=== PATIENT | female | born 1935 | race Caucasian/White ===

== ENCOUNTER 2021-02-17 16:15 | Outpatient (NON) | payer OTHER, SELFPAY | END 2021-02-17 16:16 | disposition home or self-care (01) | LOC: ANHLAB 16:17 | PROVIDERS: PCP Family Medicine; Visit Provider Nurse Practitioner | DX: R19.7 Diarrhea, unspecified (principal) | CPT/HCPCS: 87045; 87324; 87427 ==

== ENCOUNTER 2021-03-09 08:08 | Emergency (ER) | payer MEDICARE, MEDICAID, SELFPAY ==
[2021-03-09 08:09] VITALS: BP 184/91; PULSE 76; RESP 16; TEMP 36.8; O2SAT 100
--- NOTE | 2021-03-09 09:28 | ED.NAVMDI ---
HPI - Nausea/Vomiting/Diarrhea General Chief complaint: Nausea/Vomiting/Diarrhea Stated complaint: Diarrhea Time Seen by Provider: 03/09/21 09:10 Source: patient History of Present Illness HPI Narrative: Patient presents with diarrhea. Reports has had diarrhea for approximately 14 days. She was started on Flagyl by her primary care doctor for C. difficile she completed her course and continues to have diarrhea. She reports she has had one episode of diarrhea 2 days ago no diarrhea yesterday and one episode of diarrhea this morning. She denies any blood or melena. She denies any fevers nausea or vomiting. She denies any abdominal pain. She is scheduled see her primary care doctor in 5 days for reevaluation. The nursing facility was concerned as she continued to have diarrhea so she was referred to the ER for a second opinion. Related Data Home Medications Medication Instructions Recorded Confirmed levothyroxine 88 mcg tablet 88 mcg PO DAILY 11/22/20 12/13/20 potassium chloride 20 mEq 20 meq PO DAILY 11/22/20 12/13/20 tablet,extended release acetaminophen 325 mg capsule 325 mg PO Q6H PRN 12/13/20 12/13/20 carvedilol 6.25 mg tablet 6.25 mg PO Q12H 12/13/20 12/13/20 Allergies Allergy/AdvReac Type Severity Reaction Status Date / Time No Known Allergies Allergy Verified 03/09/21 08:29 Review of Systems Review of Systems: CONSTITUTIONAL: Denies fever, chills, or sweats. EYES: Denies visual changes, redness, or discharge. ENT: Denies rhinorrhea, congestion, sore throat, or otalgia. CARDIOVASCULAR: Denies chest pain, palpitations, or edema. RESPIRATORY: Denies cough or dyspnea. GASTROINTESTINAL: Denies abdominal pain, nausea, vomiting GENITOURINARY: Denies dysuria or hematuria. SKIN: Denies rash or itching. MUSCULOSKELETAL: Denies back pain, joint pain, or myalgia. NEUROLOGIC: Denies headache, numbness, dizziness, or weakness. PSYCHIATRIC: Denies anxiety or depression. All systems reviewed & are unremarkable except as noted in HPI and below PMFSH Past Medical History Medical History Acquired hypothyroidism Anxiety Diverticulosis HTN (hypertension) Family History Family History Father Heart disease Mother Diabetes mellitus Sibling Diabetes mellitus Social History Social History Smoking status: Never smoker Second hand tobacco smoke exposure: No Alcohol intake: never Substance use: never Substance use type: does not use Gender identity (if verbalized by the patient): Female Sexual Orientation (if Verbalized by the Patient): Straight or Heterosexual Exam Narrative: GENERAL: Well-appearing, well-nourished, and in no acute distress. HEAD: Normocephalic, atraumatic. EYES: PERRLA and EOMI. ENT: Nares clear, no rhinorrhea or epistaxis. Mucous membranes moist. NECK: Supple. No masses. No JVD ABDOMEN: Soft, nontender, nondistended, normal active bowel sounds. EXTREMITIES: Normal range of motion. No edema. SKIN: Warm, dry, no rash. NEURO: No focal deficits. Alert and oriented x3. PSYCH: Normal mood and affect. Course Vital Signs Vital signs: Vital Signs Temperature 36.8 C 03/09/21 08:09 Pulse Rate 76 03/09/21 08:09 Respiratory Rate 16 03/09/21 08:09 Blood Pressure 184/91 H 03/09/21 08:09 Pulse Oximetry 100 03/09/21 08:09 Temperature 36.8 C 03/09/21 08:09 Pulse Rate 76 03/09/21 08:09 Respiratory Rate 16 03/09/21 08:09 Blood Pressure 184/91 H 03/09/21 08:09 Pulse Oximetry 100 03/09/21 08:09 MDM - Nausea/Vomiting/Diarrhea MDM Narrative Medical decision making narrative: H&P as above, vss, pt looks clinically well, exam with nonacute abdomen, labs/img considered, symptomatic relief available as needed, on reevaluation pt continues to looks clinically well. Diarrhea appears to be infrequent
--- NOTE | 2021-03-09 09:45 | PC.NURSE ---
SPOKE WITH ATA MAYO AT [facility]# [phone] FOR MORE INFORMATION REGARDING PT AND SITUATION. SHE INDICATES THAT THE PT HAS BEEN POOPING IN CONTAINERS AND STORING THEM IN HER REFRIGERATOR. THE PT HAS BEEN QUARANTINED FOR THE PAST 2WKS TAKING ANTIBIOTICS. TODAY PT HAD ANOTHER EPISODE OF LOOSE STOOL. SHE CALLED DR VAUGHAN ASKING ABOUT ANOTHER STOOL CULTURE AND OR CONTINUATION OF ANTIBIOTICS AND DR VAUGHAN INDICATED NO NEW ORDERS FOR THE PT. THE NURSE SENT THE PT INTO ED FOR ADDITIONAL EVALUATION. SHE IS REQUESTING ANOTHER STOOL CULTURE. DR MCDANIEL HAS INDICATED THAT ANOTHER CULTURE ISN'T NECESSARY AT THIS TIME. WILL CALL FAMILY TO ATTEMPT TO CLARIFY SITUATION
--- NOTE | 2021-03-09 10:05 | PC.NURSE ---
SPOKE WITH JADE PT'S DAUGHTER IN LAW REGARDING SITUATION. SHE STATES THAT [facility] HAS KEPT HER IN QUARANTINE FOR THE PAST 2WEEKS WHILE TAKING THE ANTIBIOTICS FOR C-DIFF. THEY ARE NOT WANTING TO TRANSPORT HER TO MEDICAL APPOINTMENTS DUE THE THE INFECTION. JADE REPORTS THEY TOLD THE FAMILY THAT C-DIFF IS HIGHLY CONTAGIOUS AND SHE ISN'T ALLOWED TO HAVE ANY VISITORS. SHE SAID THAT [facility] REALLY HASN'T INTERACTED WITH THE PT SINCE THE DIAGNOSIS SO THE PT IS LONELY. SHE IS REQUESTING THAT WE GET A STOOL SAMPLE SO THAT [facility] WILL TAKE HER OFF OF QUARANTINE. I LET HER KNOW THAT A GRADING SUPERVISOR WILL BE CALLING HER BACK [place] TO ASSIST HER WITH THE SITUATION.
--- NOTE | 2021-03-09 10:30 | PC.NURSE ---
SPOKE WITH [employer]ICOL SOIL BIOLOGY TEACHER WHO WAS INFORMED OF THE ISSUES AND IS GOING TO HELP RECTIFY THE SITUATION
--- NOTE | 2021-03-09 12:15 | PC.NURSE ---
[employer] CALLED TO SEND TAXI OUT FOR THE PT. MAICOL FROM [employer] PROVIDED A VOUCHER FOR PT TO RIDE.
--- NOTE | 2021-03-09 12:15 | PCCCNOTE ---
Spoke with daughter in [place] and patient. Feel pt is to isolated at [facility] d/t quarantine for C-Diff. Pt has been treated. I got ED doctor to order new c-diff test. Pt unable to have stool sample here so sent back with supplies and script for C-Diff test. Cab voucher provided.
== END 2021-03-09 12:15 ==
PROVIDERS: Emergency Provider Emergency Medicine; PCP Internal Medicine
DX: R19.7 Diarrhea, unspecified (principal); E03.9 Hypothyroidism, unspecified; I10 Essential (primary) hypertension
CPT/HCPCS: 99283

== ENCOUNTER 2021-03-11 11:26 | Outpatient (NON) | payer MEDICARE, MEDICAID, SELFPAY | END 2021-03-11 11:27 | disposition home or self-care (01) | LOC: ANHLAB 11:42 | PROVIDERS: PCP Internal Medicine; Visit Provider Emergency Medicine | DX: R19.7 Diarrhea, unspecified (principal) | CPT/HCPCS: 87324; 87493 ==

== ENCOUNTER 2021-04-04 11:31 | Outpatient (NON) | payer MEDICARE, MEDICAID, SELFPAY | END 2021-04-04 11:32 | disposition home or self-care (01) | LOC: ANHLAB 11:32 | PROVIDERS: PCP Internal Medicine; Visit Provider Internal Medicine | DX: R19.7 Diarrhea, unspecified (principal) | CPT/HCPCS: 87324 ==

== ENCOUNTER 2021-04-07 11:02 | Emergency (ER) | payer MEDICARE, MEDICAID, SELFPAY ==
[2021-04-07 11:11] VITALS: BP 185/92; PULSE 94; RESP 18; TEMP 36.9; O2SAT 99
[2021-04-07 13:06] LABS: Ethanol < 10 mg/dL (<10)
[2021-04-07 13:08] LABS: Add Urine Microscopic? NO; Appearance Urine Clear (Clear); Bilirubin Urine Negative (Negative); Blood Urine Negative (Negative); Color Urine Straw (Yellow); Glucose Urine UA Negative (Negative); Ketones Urine Negative (Negative); Leukocyte Esterase Ur Negative LEU/UL (Negative); Nitrate Urine Negative (Negative); Protein Urine Negative (Negative); Specific Grav Ur 1.006 (1.001-1.035); Urobilinogen Urine Negative mg/dL (<2.0)
[2021-04-07 13:10] LABS: Alanine Aminotransferase 33 U/L (4-35); Albumin Level 4.2 g/dL (3.5-5.1); Alkaline Phosphatase 77 U/L (38-126); Anion Gap 8 mmol/L (8-16); Aspartate Amino Transferase 85 U/L (14-36); Bilirubin,Total 0.6 mg/dL (0.2-1.3); Blood Urea Nitrogen 22 mg/dL (7-17); Calcium 8.6 mg/dL (8.4-10.2); Carbon Dioxide 27 mmol/L (22-30); Chloride 107 mmol/L (98-107); Estimated CRCL calculation 36 ml/min; Estimated Glomerular Filt Rate 43; Glucose 103 mg/dL (65-110); Potassium 4.3 mmol/L (3.4-5.0); Sodium 142 mmol/L (137-145)
[2021-04-07 13:24] LABS: Basophils Percent Auto 0.3 % (0.2-1.2); Hematocrit 36.2 % (37.0-47.0); Hemoglobin 11.6 g/dL (12.0-15.0); Immature Granulocyte Absolute 0.01 K/mm3 (0.00-0.031); Immature Granulocyte Percent A 0.3 % (0-0.5); Immature Platelet Fraction Pct 4.7 % (0.9-11.2); Lymphocytes Absolute Auto 1.39 K/mm3 (0.9-3.2); Mean Corpuscular Hemoglobin 35.2 pg (26-34); Mean Corpuscular Volume 109.7 fl (80-100); Mean Platelet Volume 10.4 fl (7.4-10.4); Monocytes Absolute Auto 0.2 K/mm3 (0.1-0.6); Monocytes Percent Auto 5.4 % (2.6-8.5); Neutrophils Absolute Auto 2.2 K/mm3 (1.3-6.7); Platelet Count Result 144 k/mm3 (150-375); Red Cell Distribution Width 13.7 % (11.5-14.5); White Blood Count 3.9 K/mm3 (4.5-10.0)
[2021-04-07 13:27] LABS: Amphetamine Screen Urine Negative (Negative); Barbiturate Screen Urine Negative (Negative); Benzodiazepines Screen Urine Positive (Negative); Cannabinoid Screen Urine Negative (Negative); Cocaine Screen Urine Negative (Negative); Methadone Screen Urine Negative (Negative); Opiate Screen Urine Negative (Negative); Phencyclidine Screen Urine Negative (Negative)
--- NOTE | 2021-04-07 13:29 | PC.NURSE ---
theron turn out worker here to speak with patient
[2021-04-07 13:37] LABS: Thyroid Stimulating Hormone 0.768 uIU/mL (0.465-4.680)
--- NOTE | 2021-04-07 14:47 | ED.GENADULT ---
HPI - General Adult General Chief complaint: Psychiatric Symptoms Stated complaint: SI Time Seen by Provider: 04/07/21 12:18 Source: RN notes reviewed History of Present Illness HPI narrative: Patient presents emergency department from home for concerns of depression. Patient currently lives in assisted living she states that she gotten Covid and then following Covid had gotten C. difficile she states she been treated for C. difficile but has had to be on isolation she states that she had been living at home prior to the Covid but now has been moved to assisted living and does not like living at assisted living. She states that she lost her in August and then her sister just recently this past Saturday as well as the mother of her granddaughter in law states that because of all this she has been feeling more depressed. There is a question at the facility whether she made a comment that she would just 1 [address] out and walked on the [place] and join her in [place] she states that she does not wish to harm herself and has never tried to harm herself before in the past she states she did not make any comments that stated that she wanted to end her life but states that she has been feeling depressed been isolated in her room patient denies any homicidal ideation she denies any recent illness outside of the C. difficile for which she is on antibiotics Related Data Home Medications Medication Instructions Recorded Confirmed levothyroxine 88 mcg tablet 88 mcg PO DAILY 11/22/20 03/14/21 potassium chloride 20 mEq 20 meq PO DAILY 11/22/20 03/14/21 tablet,extended release acetaminophen 325 mg capsule 325 mg PO Q6H PRN 12/13/20 03/14/21 carvedilol 6.25 mg tablet 6.25 mg PO Q12H 12/13/20 03/14/21 Allergies Allergy/AdvReac Type Severity Reaction Status Date / Time No Known Allergies Allergy Verified 04/07/21 11:17 Review of Systems Review of Systems: Gen.: Denies fevers or chills ENT: Denies congestion Respiratory: Denies shortness of breath or cough CV: Denies chest pain or palpitations GI: Denies abdominal pain nausea, emesis or diarrhea reports history of C. difficile denies burning, urgency, frequency or hematuria Musculoskeletal: Denies back pain or muscle pain Neuro: Denies numbness, tingling, weakness or focal weakness Skin: Denies rash Psych: See HPI Except as documented, all other systems reviewed and negative [facility] Past Medical History Medical History Acquired hypothyroidism Anxiety Diverticulosis HTN (hypertension) Family History Family History Father Heart disease Mother Diabetes mellitus Sibling Diabetes mellitus Social History Social History Smoking status: Never smoker Second hand tobacco smoke exposure: No Alcohol intake: never Substance use: never Substance use type: does not use Gender identity (if verbalized by the patient): Female Sexual Orientation (if Verbalized by the Patient): Straight or Heterosexual Exam Narrative: APPEARANCE: No acute distress, nontoxic, resting in bed EYES: EOMI HEENT: Normocephalic, atraumatic, OMM RESPIRATORY: No respiratory distress Clear to auscultation bilaterally with no rhonchi wheezing or rales. CARDIOVASCULAR: Regular rate and rhythm without murmurs rubs or gallops. ABDOMINAL: Soft, nontender, nondistended, no rebound or guarding MUSCULOSKELETAl: Moves all extremities. No clubbing, cyanosis or edema. NEURO: Awake and alert. Following commands, speech normal, no focal deficits SKIN:: Warm, dry. No rashes lesions or abrasions PSYCHIATRIC: Normal affect/mood, denies suicidal ideation denies homicidal ideation Course Course Emergency Course: Patient was evaluated by Rosa M from crisis felt the patient may return home at this time patient continued any suicidal homicida
== END 2021-04-07 17:16 | disposition home or self-care (01) ==
PROVIDERS: Emergency Provider Emergency Medicine; PCP Internal Medicine
DX: F32.A Depression, unspecified (principal); I10 Essential (primary) hypertension; E03.9 Hypothyroidism, unspecified; Z79.899 Other long term (current) drug therapy
CPT/HCPCS: 36415; 80053; 80307; 81003; 84443; 85025; 85055; 99284

== ENCOUNTER 2021-04-25 16:32 | Outpatient (NON) | payer MEDICARE, MEDICAID, SELFPAY | END 2021-04-25 16:33 | disposition home or self-care (01) | LOC: ANHLAB 16:35 | PROVIDERS: PCP Internal Medicine; Visit Provider Internal Medicine | DX: R19.7 Diarrhea, unspecified (principal) | CPT/HCPCS: 87324 ==

== ENCOUNTER 2021-05-11 16:37 | Outpatient (NON) | payer MEDICARE, MEDICAID, SELFPAY | END 2021-05-11 16:38 | disposition home or self-care (01) | LOC: ANHLAB 16:39 | PROVIDERS: PCP Internal Medicine; Visit Provider Nurse Practitioner | DX: R19.7 Diarrhea, unspecified (principal) | CPT/HCPCS: 87324; 87493 ==

== ENCOUNTER 2021-05-15 14:52 | Inpatient (IN) | payer MEDICARE, MEDICAID, SELFPAY ==
[2021-05-15] VITALS (16 sets, daily range): BP systolic 155–226; BP diastolic 66–129; PULSE 70–99; RESP 16–32; TEMP 36.4; O2SAT 78–97
--- NOTE | ~2021-05-15 | CT_ITS ---
EXAMINATION: CTA chest PE abdomen pel DATE: 05/15/2021 22:06 INDICATION: Shortness of breath TECHNIQUE: Computed tomography (CT) pulmonary angiogram of the chest was performed with 100 mL Omnipa que-350 intravenous contrast. Additional 3D reconstructions utilizing coronal maximum intensity proje ction (MIP) were performed. CT of the abdomen and pelvis was performed with intravenous contrast util izing the same contrast bolus following a short delay. Automated exposure control and iterative recon struction technique were employed. The dose-length product was 435.62 mGy-cm. COMPARISON: None FINDINGS: Chest: Excellent contrast opacification of the pulmonary arteries. There is moderate streak artifact from de nse contrast in the superior vena cava and right atrium. Moderate scattered respiratory motion artifa ct. Together this mild to moderately decreases sensitivity in the smaller subsegmental pulmonary vel russ. No pulmonary embolism. Mild emphysema. Small bilateral posterior layering pleural effusions. Di ffuse groundglass opacities throughout both lungs. More dense consolidation in the basilar left lower lobe with bronchovascular crowding suggesting atelectasis. There is a cluster of nodular opacities i n the anterior segment of the left upper lobe, the largest measuring up to 12 mm in maximal diameter which is most likely infectious in etiology although differential would include less likely malignanc y. There are a few 6 mm smaller nodules in the lingula and right middle lobe. There are also few scat tered bilateral small calcified pulmonary nodules consistent with old granulomatous disease. Diffuse bronchial wall thickening which could be due to bronchitis or peribronchial cuffing related to pulmon michael edema. No pneumothorax. Cardiomegaly. In addition there is a moderate-sized pericardial effusion. There is no leftward bowing of the ventricular septum to suggest tamponade physiology. There is refl ux of contrast into the inferior vena cava and hepatic veins consistent with tricuspid regurgitation. Thoracic aorta is normal in caliber. Mild likely reactive mediastinal and bilateral hilar lymphadeno williams. Old healed posterior 9th-11th rib fractures. Abdomen/pelvis: Mild intra and extra hepatic biliary ductal dilation which may be related to cholecystectomy with no visible gallbladder. Spleen, pancreas and bilateral adrenal glands are normal. Bilateral renal cysts, the largest measuring 1.3 cm at the upper pole of the right kidney. There is moderate colonic divert iculosis with a sigmoid predominance. There is no adjacent inflammatory change to suggest diverticul itis. No bowel obstruction. Bladder, atrophic uterus and bilateral adnexa are unremarkable. Very smal l amount of ascites in the cul-de-sac. No free intraperitoneal gas. No pathologically enlarged abdomi nal or pelvic lymphadenopathy. Severe spondylosis at the lumbosacral junction. Otherwise mild thoraco lumbar spondylosis. IMPRESSION: 1. Cardiomegaly with moderate-sized pericardial effusion. 2. Small bilateral pleural effusions. 3. Groundglass opacities throughout both lungs with bronchial wall thickening. Disc represent congest jono heart failure related mild pulmonary edema or bronchitis/pneumonia. 4. Cluster of nodular opacities in the anterior segment of the left upper lobe which could be infecti ous, inflammatory or potentially malignant in etiology. Recommend 6-12 week follow-up low-dose noncon trast chest CT. 5. Mild emphysema. 6. Likely reactive mild mediastinal and bilateral hilar lymphadenopathy. 7. Small amount of nonspecific ascites in the cul-de-sac which could also be related to congestive he art failure. No other acute intra-abdominal/pelvic process. Reviewed, dictated and finalized at location H. MOBILE BUMPER STRAIGHTENER I
--- NOTE | ~2021-05-15 | XR_ITS ---
EXAMINATION: XR chest 1V portable DATE: 05/18/2021 06:22 INDICATION: COVID-19 pneumonia. TECHNIQUE: A single frontal view of the chest was obtained. COMPARISON: Chest CT 05/15/2021, chest single view 05/15/2021 FINDINGS: There are small right and moderate-sized left pleural effusions. Calcified bilateral lung n odules are consistent with old granulomatous disease. There are lucencies in the lungs, consistent wi th emphysema. There is mild scarring at the lung apices. There are airspace opacities at the lung bas es. There are mild airspace opacities in the midlung zones. No pneumothorax. There is enlargement of the cardiac silhouette. IMPRESSION: 1. Stable small right and moderate-sized left pleural effusions. 2. Airspace opacities in the mid and lower lung zones with interval improvement, consistent with a co mbination of atelectasis and pneumonia. 3. Mild emphysema. 4. Enlargement of the cardiac silhouette, likely a combination of cardiomegaly and pericardial effusi on as seen by CT. Reviewed, dictated and finalized at location A. B/PRE VOCATIONAL COUNSELOR IMPRESSION: 1. Stable small right and moderate-sized left pleural effusions. 2. Airspace opacities in the mid and lower lung zones with interval improvement , consistent with a combination of atelectasis and pneumonia. 3. Mild emphysema. 4. Enlargement of the cardiac silhouette, likely a combination of cardiomegaly and pericardial effusion as seen by CT.
--- NOTE | ~2021-05-15 | XR_ITS ---
EXAMINATION: XR chest 1V portable DATE: 05/15/2021 20:17 INDICATION: Shortness of breath TECHNIQUE: frontal view of the chest was obtained. COMPARISON: None FINDINGS: Diffuse increased interstitial pattern throughout both lungs with scattered basilar predominant patch y airspace opacities. Small bilateral pleural effusions, left greater than right. No pneumothorax. Ca rdiomegaly. IMPRESSION: 1. Likely congestive heart failure with cardiomegaly and diffuse bilateral pulmonary edema. 2. Opacities in the bilateral lower lung zones consistent with small bilateral pleural effusions with associated atelectasis and/or pneumonia, left greater than right. Reviewed, dictated and finalized at location H. OLEUM GEOLOGY FACULTY MEMBER IMPRESSION: 1. Likely congestive heart failure with cardiomegaly and diffuse bilateral pulm onary edema. 2. Opacities in the bilateral lower lung zones consistent with small bilateral pleural effusions with associated atelectasis and/or pneumonia, left greater th an right.
--- NOTE | 2021-05-15 17:24 | ED.GENADULT ---
HPI - General Adult General Chief complaint: Unspecified Stated complaint: c-diff Time Seen by Provider: 05/15/21 17:01 Source: patient History of Present Illness HPI narrative: Patient is a 85 y/o female complaining of positive C diff test. She states that she had test for C diff last and found out it was positive today. She has no symptoms at this time. She states that she had diarrhea and C diff in the past and was treated. She has no abdominal, vomiting or diarrhea currently. She states that she was instructed by her PCP to come to ED for evaluation. Related Data Home Medications Medication Instructions Recorded Confirmed levothyroxine 88 mcg tablet 88 mcg PO DAILY 11/22/20 05/16/21 potassium chloride 20 mEq 20 meq PO DAILY 11/22/20 05/16/21 tablet,extended release acetaminophen 325 mg capsule 650 mg PO Q6H PRN 12/13/20 05/16/21 carvedilol 6.25 mg tablet 6.25 mg PO Q12H 12/13/20 05/16/21 furosemide 20 mg PO DAILY 05/16/21 05/16/21 Allergies Allergy/AdvReac Type Severity Reaction Status Date / Time esomeprazole Allergy Rash Verified 05/16/21 09:22 Review of Systems Constitutional: Constitutional: Denies chills, Denies fever(s), Denies headache(s) and Denies weakness Eyes: Eyes: Denies blurry vision ENT: Denies headache(s) and Denies neck pain Cardiovascular: Cardiovascular: Denies chest pain and Denies dyspnea Respiratory: Respiratory: Denies cough and Denies dyspnea Gastrointestinal: Gastrointestinal: Denies abdominal pain, Denies diarrhea, Denies nausea and Denies vomiting Genitourinary: Genitourinary: Denies hematuria and Denies dysuria Musculoskeletal: Musculoskeletal: Denies back pain and Denies neck pain Neurologic: Denies headache(s) and Denies weakness [facility] Past Medical History Medical History (Updated 05/16/21 @ 16:21 by Sophia Steen MD) Acquired hypothyroidism Anxiety C. difficile colitis (~02/2021) Depression Diverticulosis HTN (hypertension) Pneumonia due to COVID-19 virus (~08/2019) Surgical History Surgical History History of appendectomy Hx of cholecystectomy Family History Family History Father Heart disease Mother Diabetes mellitus Sibling Diabetes mellitus Social History Social History Social History: She has been since December of 2019. Her suffered from dementia prior to his . She has 2 sons. She is a lifelong nonsmoker. She does not drink alcohol. 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 Smoking status: Never smoker Second hand tobacco smoke exposure: No Alcohol intake: former Substance use: never Substance use type: does not use Gender identity (if verbalized by the patient): Female Sexual Orientation (if Verbalized by the Patient): Straight or Heterosexual Spiritual care concerns: No Exam Const: General: no acute distress and well developed Orientation/consciousness: oriented to person, oriented to place, oriented to time and patient oriented x3 HENMT: Head: normocephalic Ears: external ears normal General nose exam: Normal external nose present Eyes: General: appearance normal, both eyes and all related structures Conjunctivae: conjunctivae normal Neck: Neck: normal visual inspection and full ROM Chest: Chest palpation & inspection: normal inspection of the chest and no tenderness Resp: Effort & Inspection: normal respiratory effort Auscultation: clear to auscultation bilaterally Cardio: Rate: regular rate Rhythm: regular rhythm GI: GI Palp: No abdominal tenderness and Yes Soft to palpation Skin: General skin exam: normal color and turgor normal Neuro: General: oriented to person, oriented to place, oriented to time and patient oriented x3 Cognition (Neuro): normal cognition Extrem:
[2021-05-15 17:57] LABS: Basophils Percent Auto 0.4 % (0.2-1.2); Hematocrit 31.6 % (37.0-47.0); Hemoglobin 10.1 g/dL (12.0-15.0); Immature Platelet Fraction Pct 4.5 % (0.9-11.2); Lymphocytes Absolute Auto 1.08 K/mm3 (0.9-3.2); Lymphocytes Percent Auto 38.3 % (18.3-44.2); Mean Corpuscular Hemoglobin 37.8 pg (26-34); Mean Corpuscular Volume 118.4 fl (80-100); Mean Platelet Volume 10.6 fl (7.4-10.4); Monocytes Absolute Auto 0.2 K/mm3 (0.1-0.6); Monocytes Percent Auto 6.7 % (2.6-8.5); Neutrophils Absolute Auto 1.5 K/mm3 (1.3-6.7); Neutrophils Percent Auto 54.6 % (45.5-73.1); Platelet Count Result 122 k/mm3 (150-375); Red Blood Count 2.67 M/mm3 (4.2-5.4); White Blood Count 2.8 K/mm3 (4.5-10.0)
--- NOTE | 2021-05-15 18:05 | PC.NURSE ---
pt states she was diagnosed with cdiff on and hasnt had any diarrhea since. states she has been in isolation in her room and is getting tired of it. upset that her kids put her in assisted living and sold her house. pt states that she will need her xanax to calm down and that her family refuses to see her.
[2021-05-15 18:07] LABS: Alanine Aminotransferase 34 U/L (4-35); Albumin Level 3.5 g/dL (3.5-5.1); Alkaline Phosphatase 91 U/L (38-126); Anion Gap 6 mmol/L (8-16); Aspartate Amino Transferase 49 U/L (14-36); Bilirubin,Total 0.5 mg/dL (0.2-1.3); Blood Urea Nitrogen 29 mg/dL (7-17); Carbon Dioxide 25 mmol/L (22-30); Chloride 107 mmol/L (98-107); Estimated CRCL calculation 21 ml/min; Estimated Glomerular Filt Rate 39; Glucose 140 mg/dL (65-110); Potassium 3.8 mmol/L (3.4-5.0); Sodium 138 mmol/L (137-145)
[2021-05-15 19:15] LABS: Add Urine Microscopic? NO; Appearance Urine Clear (Clear); Bilirubin Urine Negative (Negative); Blood Urine Negative (Negative); Color Urine Straw (Yellow); Glucose Urine UA Negative (Negative); Ketones Urine Negative (Negative); Leukocyte Esterase Ur Negative LEU/UL (Negative); Nitrate Urine Negative (Negative); Protein Urine Negative (Negative); Specific Grav Ur 1.006 (1.001-1.035); Urobilinogen Urine Negative mg/dL (<2.0)
[2021-05-15] MEDS: SODIUM CHLORIDE 0.9% IV 1,000 ML 999 ML IV CONT (19:16)
--- NOTE | 2021-05-15 20:07 | PC.NURSE ---
c/o not being able to breath lungs cta bilat
[2021-05-15] MEDS: ALPRAZolam (*CRX) 0.5 MG TABLET PO (20:16)
[2021-05-15] MEDS: FUROSEMIDE INJ 40 MG/4 ML VIAL IV PUSH (20:39)
[2021-05-15] MEDS: lisinopriL 20 MG TABLET PO (20:40)
--- NOTE | 2021-05-15 20:56 | ECG_ITS ---
Measurements Intervals [place] Rate: 91 P: 32 MT: 172 QRS: -32 QRSD: 92 T: 42 QT: 357 QTc: 440 Interpretive Statements SINUS RHYTHM VENTRICULAR PREMATURE COMPLEX LEFT AXIS DEVIATION DELAYED PRECORDIAL R/S TRANSITION BORDERLINE ST-T WAVE ABNORMALITY- LAT/HIGH LAT LEADS BASELINE ARTIFACT- I, III, AVL, AVF, V1-V6 BORDERLINE ECG Electronically Signed On 05-16-2021 5:40:09 CERTIFIED INDOOR ENVIRONMENTALIST by Jim Cast D.O.
[2021-05-15 20:58] LABS: Alveolar/Arterial O2 Gradient 122.2 mmHg; Base Excess ABG -6.9 mEq/l (+/-2.0); Fractional Inspired Oxygen 36 %; HCO3 ABG 19.3 mEq/l (22.0-26.0); Oxygen Content ABG 15.6 %vol (16.0-22.0); Oxygen Saturation ABG 95.5 % (95.0-100.0); Oxyhemoglobin 94.2 % THb (90.0-100.0); PCO2 ABG 41.6 mmHg (35.0-45.0); PO2 ABG 86.2 mmHg (80.0-100.0); PO2 FiO2 Ratio Arterial Blood 2.39 %; Total Hemoglobin 11.7 g/dL (12.0-18.0)
[2021-05-15 21:01] LABS: D Dimer 0.72 ug/mL (<0.48)
[2021-05-15 21:02] LABS: Device NASAL CANNULA; Modified Allen's Test Pass; Site Drawn LEFT RADIAL; pH ABG 7.285 (7.350-7.450)
[2021-05-15 21:06] LABS: NT Pro B Type Natriuretic Pept 12100 pg/mL (5-100)
[2021-05-15 21:09] LABS: Troponin I 0.023 ng/mL (0.000-0.034)
[2021-05-15 21:58] LABS: EDCOVIDSCREEN Positive (Negative)
[2021-05-15] MEDS: DEXAMETHASONE SOD PHOS INJ 4 MG/ML VIAL 6 MG IV PUSH (22:30)
[2021-05-15] MEDS: amLODIPine BESYLATE 5 MG TABLET 10 MG PO (23:33)
[2021-05-15 23:48] LABS: Troponin I 0.152 ng/mL (0.000-0.034)
--- NOTE | 2021-05-15 23:55 | PC.NURSE ---
Called lab and spoke to Katie to add on PT/INR
[2021-05-16] VITALS (12 sets, daily range): BP systolic 117–191; BP diastolic 68–98; PULSE 68–102; RESP 14–24; TEMP 36.1–36.4; O2SAT 95–99
[2021-05-16 00:15] LABS: INR 1.1
[2021-05-16] MEDS: REMDESIVIR 200 MG/NS 250 ML 200 MG/250 ML BAG 250 MG IVPB (01:01)
--- NOTE | 2021-05-16 01:21 | PC.NURSE ---
med list verified by nursing staff at [facility] per lit
--- NOTE | 2021-05-16 01:33 | PM.IMHP ---
H&P: HPI History of Present Illness Date/Time: 05/16/21 01:33 Chief Complaint: C diff positive Narrative: 85-year-old female with a past medical history of hypertension, anxiety, depression, hypothyroidism and recent C diff colitis who presented to the ER from [facility] via EMS days to C diff positive stools. The patient reports that she got C diff colitis back in February. She was treated with Dificid. Her diarrhea resolved. She was also treated with lactobacillus. She reported that she did not have any recurrence of her diarrhea but did have occasional mushy stools. She had 2- C diff tests back to back and then her son was still concerned so he insisted she had a another C diff test which came back positive. She reports that she was called by the doctor who told her to come to the ER for evaluation. The patient denies having any recent diarrheal stools or abdominal pain. However she does report that incidentally over the last couple of weeks she has had orthopnea and paroxysmal nocturnal dyspnea. She has not noticed any significant dyspnea on exertion. She denies any chest pain. She denies any cough, congestion, fevers or chills. She is frequently tested for COVID at her assisted living facility. She did have COVID pneumonia in August 2019 and was discharged to a fdc facility briefly and then transition to assisted living after that time. She did report that while she was in the fdc facility she did develop similar symptoms of shortness of breath that she has currently and when she was hospitalized at [place] she was started on Lasix. She denies a known history of CHF and does not recall having had a an echocardiogram. She reports that at 1 point she was on 2 tablets of Lasix a day but was decreased down to 1 tablet a few months ago. She did not have the COVID vaccine after she had COVID as she was worried to have the [employer] vaccine. She has been considering getting vaccinated for COVID in the last couple of months but had not been ready to do so yet. She reports that neither 1 of her sons will get vaccinated for COVID and her extended family is also refusing to get vaccinated for COVID. She denies any unusual body aches, fatigue, headaches or GI symptoms. She has been afebrile since presentation to hospital. However, shortly after arrival to the ER the patient did develop significant hypoxia with pulse ox down to 78%. She was placed on 4 L nasal cannula with improvement in her oxygen saturations up to 97%. She does have difficulty with occasional urinary incontinence. She denies any dysuria, hematuria or changes in urinary frequency. She reports that she initially lost a lot a weight when she was diagnosed with COVID. However, in recent months her weight has been stable. She reports that she has been depressed since her in December. Review of Systems Review of Systems: 12 systems were reviewed with pertinent positives and negatives per HPI. Except as documented in the HPI, all other systems were reviewed and are negative. [facility] Past Medical History Medical History (Updated 05/16/21 @ 04:42 by Cheyenne Martini DO) Acquired hypothyroidism Anxiety C. difficile colitis (~02/2021) Depression Diverticulosis HTN (hypertension) Pneumonia due to COVID-19 virus (~08/2019) Surgical History Surgical History (Updated 05/16/21 @ 04:28 by Cheyenne Martini DO) History of appendectomy Hx of cholecystectomy Family History Family History Father Heart disease Mother Diabetes mellitus Sibling Diabetes mellitus Social History Social History (Updated 05/16/21 @ 04:32 by Cheyenne Martini DO) Social History: She has been since December of 2019. Her suffered from dementia prior to his . She has 2 sons. She is a lifelong nonsmoker. She does not drink alcohol. She used to work as a caf
[2021-05-16 05:09] LABS: Troponin I 0.205 ng/mL (0.000-0.034)
--- NOTE | 2021-05-16 06:00 | ECHO_ITS ---
Patient Info Name: Fern Grier Age: 85 years : 1935 Gender: Female Ht: 63 in Wt: 105 lbs BSA: 1.45 m2 HR: 75 bpm BP: 159 / 74 mmHg Heart Rhythm: Sinus Arrhythmia Technical Quality: Good Exam Date: 05/16/2021 10:58 AM Exam Location: [facility] Pulmonary Patient Status: Inpatient Admit Date: 05/15/2021 Staff Ordering Physician: Sophia Steen MD Manager Enrollment: OCHOA Attending Provider: Cheyenne Martini DO Referring Physician: Enio POWER; Exam Type: CA echo doppler color flow Study Info Indications - chf Complete two-dimensional, color flow and Doppler transthoracic echocardiogram is performed. Summary 1. Complete two-dimensional, color flow and Doppler transthoracic echocardiogram is performed. 2. Left ventricular systolic function is severely reduced, estimated at 20-25%. 3. There is moderately increased left ventricular wall thickness. 4. The left ventricular diastolic function is grade I diastolic dysfunction. 5. Left ventricular chamber dimension is mildly enlarged. 6. E/e' 8 is minimally elevated. 7. There is mild aortic valve sclerosis. 8. The mitral valve has moderately calcified annulus. 9. There is trace mitral valve regurgitation. 10. No pulmonary hypertension, estimated pulmonary arterial systolic pressure is 27 mmHg. 11. Normal inferior vena cava with <50% collapse upon inspiration consistent with elevated right atrial pressure, 10 mmHg. 12. There is moderate circumferential pericardial effusion between 1.3-2.5 cm. No cardiac tamponade. Left Ventricle E/e' 8 is minimally elevated. Left ventricular chamber dimension is mildly enlarged. Left ventricular systolic function is severely reduced, estimated at 20-25%. There is moderately increased left ventricular wall thickness. The left ventricular diastolic function is grade I diastolic dysfunction. Right Ventricle Right ventricular chamber dimension is normal. Right ventricular systolic function is normal. Left Atria Left atrial chamber dimension is normal. Right Atria Right atrial chamber dimension is normal. Aortic Valve The aortic valve is trileaflet. There is mild aortic valve sclerosis. There is no aortic valve stenosis. There is no aortic valve regurgitation. Pulmonic Valve There is no pulmonic regurgitation. Mitral Valve The mitral valve has moderately calcified annulus. There is no mitral valve stenosis. There is trace mitral valve regurgitation. Tricuspid Valve There is no tricuspid valve regurgitation. No pulmonary hypertension, estimated pulmonary arterial systolic pressure is 27 mmHg. Pericardium/Pleural There is moderate circumferential pericardial effusion between 1.3-2.5 cm. No cardiac tamponade. Inferior Vena Cava Normal inferior vena cava with <50% collapse upon inspiration consistent with elevated right atrial pressure, 10 mmHg. Aorta The aortic root size at the sinus of Valsalva is normal. Left Ventricular Outflow Tract Name Value Normal LVOT Doppler LVOT Peak Gradient 3 mmHg LVOT Mean Gradient 1 mmHg LVOT VTI 11 cm LVOT VTI/AV VTI Ratio 0.6 Pulmonic Valve -----
[2021-05-16 06:46] LABS: Hematocrit 37.3 % (37.0-47.0); Hemoglobin 11.9 g/dL (12.0-15.0); Immature Platelet Fraction Pct 5.4 % (0.9-11.2); Mean Corpuscular HGB Conc 31.9 g/dl (32-36); Mean Corpuscular Hemoglobin 36.7 pg (26-34); Mean Corpuscular Volume 115.1 fl (80-100); Mean Platelet Volume 10.5 fl (7.4-10.4); Platelet Count Result 125 k/mm3 (150-375); Red Blood Count 3.24 M/mm3 (4.2-5.4); Red Cell Distribution Width 16.9 % (11.5-14.5)
[2021-05-16 06:51] LABS: White Blood Count 1.7 K/mm3 (4.5-10.0)
[2021-05-16 06:54] LABS: INR 1.1; Prothrombin Time 13.7 Seconds (11.1-14.7)
[2021-05-16 07:07] LABS: Alanine Aminotransferase 75 U/L (4-35); Albumin Level 4.2 g/dL (3.5-5.1); Alkaline Phosphatase 130 U/L (38-126); Anion Gap 9 mmol/L (8-16); Aspartate Amino Transferase 104 U/L (14-36); Bilirubin,Total 0.8 mg/dL (0.2-1.3); Blood Urea Nitrogen 23 mg/dL (7-17); CRP < 0.5 mg/dL (<1.0); Calcium 8.7 mg/dL (8.4-10.2); Carbon Dioxide 25 mmol/L (22-30); Chloride 104 mmol/L (98-107); Estimated CRCL calculation 25 ml/min; Estimated Glomerular Filt Rate 47; Glucose 154 mg/dL (65-110); Lactate Dehydrogenase 746 U/L (313-618); Potassium 3.8 mmol/L (3.4-5.0); Sodium 138 mmol/L (137-145)
[2021-05-16 07:22] LABS: Alanine Aminotransferase 76 U/L (4-35)
--- NOTE | 2021-05-16 08:06 | PC.NURSE ---
attempted to call Dr. Martini about pt request for Xanex. no answer
[2021-05-16] MEDS: ALPRAZolam (*CRX) 0.5 MG TABLET PO ×3 (09:13→18:00)
[2021-05-16] MEDS: ACIDOPHILUS/BULGARICUS CHEWABLE TABLET 1 TABLET PO ×4 (09:13→20:45)
[2021-05-16] MEDS: DEXAMETHASONE SOD PHOS INJ 4 MG/ML VIAL 6 MG IV PUSH (09:14)
[2021-05-16] MEDS: FUROSEMIDE INJ 40 MG/4 ML VIAL IV PUSH (09:14)
--- NOTE | 2021-05-16 12:00 | PC.NURSE ---
placed patient in hospital bed and gave her a menu to order lunch
--- NOTE | 2021-05-16 12:16 | PC.NURSE ---
ordered pt. food tray
--- NOTE | 2021-05-16 15:01 | ADMGEN ---
This patient, Fern Grier, was admitted to [facility] Surg Room 333-01. Patient/family oriented to hospital policies and general routines including ID bracelet, bed and alarms, visiting hours, pain management, procedures, bathroom and other care routines, personal items, smoking policy, room service/diet, and visiting hours. Information on how to activate the Rapid Response Team has been discussed. Patient/Family are encouraged to report perceived risks to care and to ask questions if they do not understand what they are told or what they should do.
[2021-05-16] MEDS: REMDESIVIR 100 MG/NS 250 ML 100 MG/250 ML BAG 250 MG IVPB (20:45)
[2021-05-17] VITALS (8 sets, daily range): BP systolic 108–149; BP diastolic 67–91; PULSE 6–82; RESP 16–18; TEMP 36–36.4; O2SAT 98–100
[2021-05-17 06:57] LABS: Alanine Aminotransferase 42 U/L (4-35); Anion Gap 8 mmol/L (8-16); Blood Urea Nitrogen 33 mg/dL (7-17); Calcium 8.3 mg/dL (8.4-10.2); Carbon Dioxide 27 mmol/L (22-30); Chloride 102 mmol/L (98-107); Estimated CRCL calculation 21 ml/min; Estimated Glomerular Filt Rate 39; Glucose 89 mg/dL (65-110); Potassium 3.4 mmol/L (3.4-5.0); Sodium 137 mmol/L (137-145)
[2021-05-17 07:03] LABS: INR 1.3; Prothrombin Time 15.6 Seconds (11.1-14.7)
[2021-05-17 07:14] LABS: Hematocrit 34.4 % (37.0-47.0); Mean Corpuscular Hemoglobin 36.8 pg (26-34); Mean Corpuscular Volume 115.1 fl (80-100); Mean Platelet Volume 10.8 fl (7.4-10.4); Platelet Count Result 132 k/mm3 (150-375); Red Blood Count 2.99 M/mm3 (4.2-5.4); Red Cell Distribution Width 16.9 % (11.5-14.5); White Blood Count 4.1 K/mm3 (4.5-10.0)
[2021-05-17] MEDS: POTASSIUM CHLORIDE 20 MEQ TABLET.ER PO (10:03)
[2021-05-17] MEDS: ACIDOPHILUS/BULGARICUS CHEWABLE TABLET 1 TABLET PO ×4 (10:04→20:39)
[2021-05-17] MEDS: DEXAMETHASONE SOD PHOS INJ 4 MG/ML VIAL 6 MG IV PUSH (10:04)
[2021-05-17] MEDS: FUROSEMIDE INJ 40 MG/4 ML VIAL IV PUSH (10:05)
[2021-05-17] MEDS: ALPRAZolam (*CRX) 0.5 MG TABLET PO ×3 (10:07→17:03)
[2021-05-17] MEDS: LEVOTHYROXINE SODIUM 88 MCG TABLET PO (10:10)
[2021-05-17] MEDS: lisinopriL 5 MG TABLET PO (10:10)
[2021-05-17] MEDS: carvediloL 6.25 MG TABLET PO ×2 (10:10→20:38)
--- NOTE | 2021-05-17 11:29 | PCDIET ---
Dietitian screen for Low BMI. Tried calling patient today due to COVID positive. Phone not working. Nursing tried asking patient about weight loss. unsure. MD orders for ensure compact BID providing an additional 220 kcals and 9 gms protein. CDiff positive.Diet order: heart healthy. Intake: greater than 75% of tray. No further nutritional interventions needed at this time.
--- NOTE | 2021-05-17 16:08 | PM.CNCAR ---
Assessment and Plan Assessment and plan (1) Acute on chronic systolic and diastolic heart failure, NYHA class 1: Code(s): I50.43 - Acute on chronic combined systolic (congestive) and diastolic (congestive) heart failure Status: Acute Assessment and Plan: History of diastolic CHF for which she was hospitalized in May 2020. 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 No clinical evidence of ACS or CAD. Improving with conventional therapy with furosemide, carvedilol, lisinopril; looks euvolemic Change lisinopril to Entresto (if affordable) CXR and ProBNP tmr to evaluate CHF (2) Pericardial effusion: Code(s): I31.3 - Pericardial effusion (noninflammatory) Status: Acute Assessment and Plan: Moderate pericardial effusion which is a little odd, not common with COVID or COVID myocarditis but there is an association. No chest pain or EKG changes that are typical for pericarditis. Fortunately no evidence of tamponade physiology. No history of connective tissue disease or tuberculosis Check TSH On Decadron which may help the pericardial effusion. Recheck a limited echo in 2-4 weeks. If the effusion is not improved, can add colchicine (though that may cause diarrhea, which may cloud the picture since she had is a carrier of C diff) or a nonsteroidal. (3) Pneumonia due to 2019 novel coronavirus: Code(s): U07.1 - COVID-19; J12.82 - Pneumonia due to coronavirus disease 2019 Status: Acute Assessment and Plan: Doing better, O2 needs reduced, tx per hospitalists. (4) Clostridioides difficile carrier: Code(s): Z22.1 - Carrier of other intestinal infectious diseases Status: Acute (5) HTN (hypertension): Qualifiers: Hypertension type: primary hypertension Qualified Code(s): I10 - Essential (primary) hypertension Code(s): I10 - Essential (primary) hypertension Status: Acute Assessment and Plan: At goal History of Present Illness History of Present Illness Consult date/time: 05/17/21 16:08 Consult reason: congestive heart failure Reason For Visit: CHF, COVID Pneumonia Narrative: Fern Grier is an 85-year-old white female whom we are asked to see at the request of the hospitalist for advice and opinion regarding her CHF and cardiomyopathy, in consultation. H/O CHF. The patient had C difficile in March and apparently of positive C diff test was instructed to come to the emergency room for evaluation and treatment. In the emergency room she mentioned that she could hardly breathe, had abnormal chest x-ray and appeared to be in CHF. She also tested positive for COVID. She had COVID in the past and has not been vaccinated. She was hypoxic on admission with O2 saturations down to 78%. She has been treated with oxygen (currently on 4 L), remdesivir and Decadron. She is also started on IV Lasix. she is feeling much better. Her echo, as below, showed an ejection fraction of 20-25% as well as a moderate pericardial effusion without tamponade. She has had ARTHUR for about 2 weeks with PND but no edema. A discharge summary from [place] from 06/06/2020 showed she had been admitted for CHF, echo EF 50%, moderate diastolic dysfunction, mild TR, had elevated liver enzymes, had a positive C diff test she was diuresed and started on an SOPHIA-inhibitor and beta-myles. Apparently her furosemide was decreased from 20 mg BID to 20 mg qd since then. No h/o pericardial effusions but she does have a history of thyroid disease. No lupus or rheumatoid arthritis, no TB, no recent fevers. Review of Systems Constitutional: Constitutional: Reports fatigue Eyes: Eyes: Reports no additional eye complaints ENT: Denies epistaxis Cardiovasc
--- NOTE | 2021-05-17 17:08 | PM.IMPN ---
Progress Note: A&P Assessment and Plan (1) Clostridioides difficile carrier: Code(s): Z22.1 - Carrier of other intestinal infectious diseases Status: Acute Assessment and Plan: The patient has positive C diff test but is not having active diarrhea. She had recent C diff infection and was treated with Dificid. She may still have some residual setting of spores. No need for further treatment at this time. Stools are formed and she is asymptomatic Continue probiotic. (2) CHF (congestive heart failure): Code(s): I50.9 - Heart failure, unspecified Status: Acute Assessment and Plan: The patient denies history of CHF but is on beta myles, SOPHIA-inhibitor and Lasix suggesting likely history of CHF. She was hospitalized at [place] in May for CHF exacerbation. Echo reviewed today showed EF 20-25% Appreciate cardiology consultation Monitor strict I&O's and daily weights. Continue with IV furosemide 40 mg daily pending cardiology recommendations (3) Pneumonia due to COVID-19 virus: Code(s): U07.1 - COVID-19; J12.82 - Pneumonia due to coronavirus disease 2018 Status: Acute Assessment and Plan: The patient had COVID antigen testing which was positive today. CTA shows groundglass opacities of bilateral lungs consistent with edema vs pneumonia She is currently requiring 4 L supplemental O2. Continue supplemental O2 as needed with goal saturation 92% or above Continue dexamethasone and remdesivir given hypoxia COVID PCR is pending Continue isolation precautions Trend inflammatory markers Supportive care to include bronchodilators, expectorants, antipyretics She has not been vaccinated for COVID-19 (4) Acute respiratory failure with hypoxia: Code(s): J96.01 - Acute respiratory failure with hypoxia Status: Acute Assessment and Plan: Due to CHF versus COVID. Likely combination of both Continue treatment Decadron and Remdesivir and Lasix as discussed above. Wean oxygen as tolerated. (5) Pancytopenia: Code(s): D61.818 - Other pancytopenia Status: Acute Assessment and Plan: Likely related to acute viral illness Continue to monitor CBC (6) Acute kidney injury: Code(s): N17.9 - Acute kidney failure, unspecified Status: Acute Assessment and Plan: Baseline is unclear but expect she does have some degree of CKD. Creatinine up to 1.3 today, likely due to need for IV diuresis Monitor renal function closely and renally dose medications (7) Acquired hypothyroidism: Code(s): E03.9 - Hypothyroidism, unspecified Status: Acute Assessment and Plan: Continue levothyroxine Will check TSH Subjective Date/time seen: 05/17/21 17:08 Interval history: Date of service: 05/17/2021 Fern Grier is an 85-year-old female with a history of hypertension, hypothyroidism, COVID pneumonia in August 2019, recent Clostridium difficile colitis in February 2021 who is seen in follow-up for COVID pneumonia. Her breathing is better today. She stated that last night she was having a very hard time breathing. She was not sure if she was anxious and this was making it worse. Today, she is breathing more comfortably though does endorse conversational dyspnea as well as dyspnea on exertion. She endorses infrequent cough and denies sputum production. Denies wheezing. Denies increased swelling in her extremities. She denies nausea, vomiting, fever, chills, dizziness, lightheadedness. Reports frequent urination which she relates to Lasix. She denies dysuria. She did have a bowel movement this morning and states that her stool is formed. She has not had loose or liquid stools for over 1 week. She denies abdominal pain. Her appetite is good. She denies anosmia or dysgeusia. She is able to ambulate with a walker and feels steady on her feet. She does state she has been depressed since the passing of
[2021-05-17] MEDS: guaiFENesin 12 HR 600 MG TABCR PO (20:38)
[2021-05-17] MEDS: REMDESIVIR 100 MG/NS 250 ML 100 MG/250 ML BAG 250 MG IVPB (20:39)
[2021-05-18] VITALS (9 sets, daily range): BP systolic 117–167; BP diastolic 53–78; PULSE 59–68; RESP 18; TEMP 36.1–36.4; O2SAT 94–99
[2021-05-18] MEDS: LEVOTHYROXINE SODIUM 88 MCG TABLET PO (05:46)
[2021-05-18 06:41] LABS: INR 1.2; Prothrombin Time 15.2 Seconds (11.1-14.7)
[2021-05-18 06:50] LABS: Hematocrit 33.3 % (37.0-47.0); Hemoglobin 10.5 g/dL (12.0-15.0); Immature Platelet Fraction Pct 5.4 % (0.9-11.2); Mean Corpuscular HGB Conc 31.5 g/dl (32-36); Mean Corpuscular Hemoglobin 35.8 pg (26-34); Mean Corpuscular Volume 113.7 fl (80-100); Mean Platelet Volume 10.4 fl (7.4-10.4); Platelet Count Result 130 k/mm3 (150-375); Red Blood Count 2.93 M/mm3 (4.2-5.4); Red Cell Distribution Width 16.5 % (11.5-14.5); White Blood Count 4.3 K/mm3 (4.5-10.0)
[2021-05-18 06:59] LABS: Alanine Aminotransferase 37 U/L (4-35); Albumin Level 3.5 g/dL (3.5-5.1); Alkaline Phosphatase 84 U/L (38-126); Anion Gap 6 mmol/L (8-16); Aspartate Amino Transferase 43 U/L (14-36); Bilirubin,Total 0.4 mg/dL (0.2-1.3); Blood Urea Nitrogen 37 mg/dL (7-17); CRP < 0.5 mg/dL (<1.0); Calcium 8.5 mg/dL (8.4-10.2); Carbon Dioxide 26 mmol/L (22-30); Chloride 100 mmol/L (98-107); Estimated CRCL calculation 20 ml/min; Estimated Glomerular Filt Rate 36; Glucose 87 mg/dL (65-110); Lactate Dehydrogenase 507 U/L (313-618); Potassium 3.8 mmol/L (3.4-5.0); Sodium 132 mmol/L (137-145)
[2021-05-18 07:04] LABS: NT Pro B Type Natriuretic Pept 10100 pg/mL (5-100)
[2021-05-18] MEDS: FUROSEMIDE INJ 40 MG/4 ML VIAL IV PUSH (09:51)
[2021-05-18] MEDS: DEXAMETHASONE SOD PHOS INJ 4 MG/ML VIAL 6 MG IV PUSH (09:51)
[2021-05-18] MEDS: ACIDOPHILUS/BULGARICUS CHEWABLE TABLET 1 TABLET PO ×4 (09:52→21:57)
[2021-05-18] MEDS: ALPRAZolam (*CRX) 0.5 MG TABLET PO ×3 (09:52→17:56)
[2021-05-18] MEDS: guaiFENesin 12 HR 600 MG TABCR PO ×2 (09:52→21:57)
[2021-05-18] MEDS: POTASSIUM CHLORIDE 20 MEQ TABLET.ER PO (09:52)
[2021-05-18] MEDS: carvediloL 6.25 MG TABLET PO ×2 (09:52→21:57)
[2021-05-18] MEDS: ENOXAPARIN 30 MG/0.3 ML SYRINGE SUB-Q (09:57)
--- NOTE | 2021-05-18 13:50 | PM.PNCARD ---
Progress Note: A&P Assessment and Plan (1) Acute on chronic systolic and diastolic heart failure, NYHA class 1: Code(s): I50.43 - Acute on chronic combined systolic (congestive) and diastolic (congestive) heart failure Status: Acute Assessment and Plan: History of diastolic CHF for which she was hospitalized in May 2020. 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 No clinical evidence of ACS or CAD. Improving with conventional therapy with furosemide, carvedilol, lisinopril; looks euvolemic. Will change her furosemide to 40 mg p.o. daily Change lisinopril to Entresto (if affordable) CXR and ProBNP tmr to evaluate CHF (2) Pericardial effusion: Code(s): I31.3 - Pericardial effusion (noninflammatory) Status: Acute Assessment and Plan: Moderate pericardial effusion which is a little odd, not common with COVID or COVID myocarditis but there is an association. No chest pain or EKG changes that are typical for pericarditis. Fortunately no evidence of tamponade physiology. No history of connective tissue disease or tuberculosis On Decadron which may help the pericardial effusion. Recheck a limited echo in 2-4 weeks. If the effusion is not improved, can add colchicine (though that may cause diarrhea, which may cloud the picture since she had is a carrier of C diff) or a nonsteroidal. (3) Pneumonia due to 2019 novel coronavirus: Code(s): U07.1 - COVID-19; J12.82 - Pneumonia due to coronavirus disease 2019 Status: Acute Assessment and Plan: Doing better, O2 needs reduced, tx per hospitalists. (4) Clostridioides difficile carrier: Code(s): Z22.1 - Carrier of other intestinal infectious diseases Status: Acute (5) HTN (hypertension): Qualifiers: Hypertension type: primary hypertension Qualified Code(s): I10 - Essential (primary) hypertension Code(s): I10 - Essential (primary) hypertension Status: Acute Assessment and Plan: At goal Subjective Date/time seen: 05/18/21 13:50 Interval history: Fern Grier is an 85-year-old female with a history of hypertension, hypothyroidism, COVID pneumonia in August 2019, recent Clostridium difficile colitis in February 2021 who is seen in follow-up for COVID pneumonia. Date of service 05/18/2021: She denies any chest pain, shortness breath. No Jennifer. Feels okay. Review of Systems Constitutional: Constitutional: Reports fatigue Eyes: Eyes: Reports no additional eye complaints ENT: Denies epistaxis Cardiovascular: Cardiovascular: Denies chest pain, Denies pedal edema, Denies leg edema, Denies lightheadedness, Reports dyspnea and Reports dyspnea on exertion Respiratory: Respiratory: Denies chest congestion, Denies cough, Reports dyspnea, Reports dyspnea on exertion and Denies wheezing Gastrointestinal: Gastrointestinal: Denies abdominal pain, Denies hematochezia and Denies diarrhea Genitourinary: Genitourinary: Denies hematuria Musculoskeletal: Musculoskeletal: Reports no additional musculoskeletal complaints Integumentary/Breasts: Skin/Breast: Denies rash Neurologic: Reports system reviewed and no additional complaints, except as documented Psychiatric: Psychiatric: Reports no additional psychiatric complaints Endocrine: Endocrine: Reports fatigue Allergic/Immunologic: Allergic/Immunologic: Denies wheezing Exam Narrative: Older chatty female in bed, NAD. Const: General: comfortable and no acute distress HENMT: General nose exam: no epistaxis Mouth: Yes moist mucous membranes Eyes: EOM: EOMs intact bilaterally Neck: Neck: supple and no JVD Thyroid: thyroid normal Carotids: no bruits Lymphatic: lymphadenopathy not noted Resp: Auscultation: clear to auscultation bilaterally and diminished lung sounds (in bases) Car
--- NOTE | 2021-05-18 16:17 | P.PNIM_ITS ---
Progress Note: A&P Assessment and Plan (1) Clostridioides difficile carrier: Code(s): Z22.1 - Carrier of other intestinal infectious diseases Status: Acute Assessment and Plan: The patient has positive C diff test but is not having active diarrhea. * She had recent C diff infection and was treated with Dificid. * She may still have some residual setting of spores. * No need for further treatment at this time. Stools are formed and she is asymptomatic * Continue probiotic. (2) CHF (congestive heart failure): Code(s): I50.9 - Heart failure, unspecified Status: Acute Assessment and Plan: The patient denies history of CHF but is on beta myles, SOPHIA-inhibitor and Lasix suggesting likely history of CHF. She was hospitalized at [place] in May for CHF exacerbation. * Echo reviewed today showed EF 20-25% * Appreciate cardiology consultation * Monitor strict I&O's and daily weights. * PO furosemide 40 mg daily * Continue Entresto. import coordinator consult for pricing (3) Pneumonia due to COVID-19 virus: Code(s): U07.1 - COVID-19; J12.82 - Pneumonia due to coronavirus disease 2018 Status: Acute Assessment and Plan: The patient had COVID antigen testing which was positive 05/15. CTA shows groundglass opacities of bilateral lungs consistent with edema vs pneumonia * She required up to 4 L supplemental O2 but has been weaned to 1L today and maintaining adequate O2 sats. * Continue dexamethasone and remdesivir given hypoxia * COVID PCR is pending * Continue isolation precautions * Trend inflammatory markers * Supportive care to include bronchodilators, expectorants, antipyretics * She has not been vaccinated for COVID-19 (4) Acute respiratory failure with hypoxia: Code(s): J96.01 - Acute respiratory failure with hypoxia Status: Acute Assessment and Plan: Due to CHF versus COVID. Likely combination of both * Wean oxygen as tolerated. (5) Pancytopenia: Code(s): D61.818 - Other pancytopenia Status: Acute Assessment and Plan: Likely related to acute viral illness * Continue to monitor CBC (6) Acute kidney injury: Code(s): N17.9 - Acute kidney failure, unspecified Status: Acute Assessment and Plan: Baseline is unclear but expect she does have some degree of CKD. * Creatinine up to 1.4 today, likely due to need for IV diuresis * Hopeful improvement with transition to PO lasix * Monitor renal function closely and renally dose medications (7) Acquired hypothyroidism: Code(s): E03.9 - Hypothyroidism, unspecified Status: Acute Assessment and Plan: TSH is within normal limits. * Continue levothyroxine (8) Pericardial effusion: Code(s): I31.3 - Pericardial effusion (noninflammatory) Status: Acute Assessment and Plan: Echo shows moderate pericardial effusion without tamponade. * Appreciate cardiology consult * Etiology for this is not clear; possibly related to viral illness. TSH is normal. * Plan for repeat echo in 2-4 weeks per cardiology recommendations Subjective Date/time seen: 05/18/21 16:17 Interval history: Date of service: 05/18/2021 Fern Grier is an 85-year-old female with a history of hypertension, hypothyroidism, COVID pneumonia in August 2019, recent Clostridium difficile colitis in February 2021 who is seen in follow-up for COVID pneumonia. She is feeling well today. Reports that breathing has improved. She is no longer
--- NOTE | 2021-05-18 16:17 | PM.IMPN ---
Progress Note: A&P Assessment and Plan (1) Clostridioides difficile carrier: Code(s): Z22.1 - Carrier of other intestinal infectious diseases Status: Acute Assessment and Plan: The patient has positive C diff test but is not having active diarrhea. She had recent C diff infection and was treated with Dificid. She may still have some residual setting of spores. No need for further treatment at this time. Stools are formed and she is asymptomatic Continue probiotic. (2) CHF (congestive heart failure): Code(s): I50.9 - Heart failure, unspecified Status: Acute Assessment and Plan: The patient denies history of CHF but is on beta myles, SOPHIA-inhibitor and Lasix suggesting likely history of CHF. She was hospitalized at [facility] in May for CHF exacerbation. Echo reviewed today showed EF 20-25% Appreciate cardiology consultation Monitor strict I&O's and daily weights. PO furosemide 40 mg daily Continue Entresto. bariatric program coordinator consult for pricing (3) Pneumonia due to COVID-19 virus: Code(s): U07.1 - COVID-19; J12.82 - Pneumonia due to coronavirus disease 2018 Status: Acute Assessment and Plan: The patient had COVID antigen testing which was positive 05/15. CTA shows groundglass opacities of bilateral lungs consistent with edema vs pneumonia She required up to 4 L supplemental O2 but has been weaned to 1L today and maintaining adequate O2 sats. Continue dexamethasone and remdesivir given hypoxia COVID PCR is pending Continue isolation precautions Trend inflammatory markers Supportive care to include bronchodilators, expectorants, antipyretics She has not been vaccinated for COVID-19 (4) Acute respiratory failure with hypoxia: Code(s): J96.01 - Acute respiratory failure with hypoxia Status: Acute Assessment and Plan: Due to CHF versus COVID. Likely combination of both Wean oxygen as tolerated. (5) Pancytopenia: Code(s): D61.818 - Other pancytopenia Status: Acute Assessment and Plan: Likely related to acute viral illness Continue to monitor CBC (6) Acute kidney injury: Code(s): N17.9 - Acute kidney failure, unspecified Status: Acute Assessment and Plan: Baseline is unclear but expect she does have some degree of CKD. Creatinine up to 1.4 today, likely due to need for IV diuresis Hopeful improvement with transition to PO lasix Monitor renal function closely and renally dose medications (7) Acquired hypothyroidism: Code(s): E03.9 - Hypothyroidism, unspecified Status: Acute Assessment and Plan: TSH is within normal limits. Continue levothyroxine (8) Pericardial effusion: Code(s): I31.3 - Pericardial effusion (noninflammatory) Status: Acute Assessment and Plan: Echo shows moderate pericardial effusion without tamponade. Appreciate cardiology consult Etiology for this is not clear; possibly related to viral illness. TSH is normal. Plan for repeat echo in 2-4 weeks per cardiology recommendations Subjective Date/time seen: 05/18/21 16:17 Interval history: Date of service: 05/18/2021 Fern Grier is an 85-year-old female with a history of hypertension, hypothyroidism, COVID pneumonia in August 2019, recent Clostridium difficile colitis in February 2021 who is seen in follow-up for COVID pneumonia. She is feeling well today. Reports that breathing has improved. She is no longer requiring oxygen. She denies cough. She does report frequent urination due to Lasix. Denies burning with urination or any other bothersome symptoms. She has been eating well today. She does report feeling depressed about being in the hospital and being away from her family. No diarrhea. No nausea, vomiting, fever, or chills. denies swelling of her extremities. Review of Systems Review of Systems: All systems reviewed & are unremarkab
[2021-05-18 19:46] LABS: SARS-CoV-2 RNA PCR Negative
[2021-05-18] MEDS: SACUBITRIL/VALSARTAN 24-26 MG TABLET 1 TAB PO (21:57)
[2021-05-19] VITALS (9 sets, daily range): BP systolic 109–115; BP diastolic 57–63; PULSE 55–82; RESP 14–16; TEMP 36.4–36.6; O2SAT 92–98
[2021-05-19 06:54] LABS: INR 1.3; Prothrombin Time 15.9 Seconds (11.1-14.7)
[2021-05-19 06:58] LABS: Hematocrit 35.7 % (37.0-47.0); Hemoglobin 11.5 g/dL (12.0-15.0); Mean Corpuscular HGB Conc 32.2 g/dl (32-36); Mean Corpuscular Volume 114.8 fl (80-100); Mean Platelet Volume 10.5 fl (7.4-10.4); Platelet Count Result 143 k/mm3 (150-375); Red Blood Count 3.11 M/mm3 (4.2-5.4); Red Cell Distribution Width 16.2 % (11.5-14.5); White Blood Count 4.8 K/mm3 (4.5-10.0)
[2021-05-19 07:13] LABS: Alanine Aminotransferase 31 U/L (4-35); Albumin Level 3.5 g/dL (3.5-5.1); Alkaline Phosphatase 78 U/L (38-126); Anion Gap 6 mmol/L (8-16); Aspartate Amino Transferase 34 U/L (14-36); Bilirubin,Total 0.4 mg/dL (0.2-1.3); Blood Urea Nitrogen 40 mg/dL (7-17); Calcium 8.6 mg/dL (8.4-10.2); Carbon Dioxide 27 mmol/L (22-30); Chloride 100 mmol/L (98-107); Estimated CRCL calculation 21 ml/min; Estimated Glomerular Filt Rate 39; Glucose 97 mg/dL (65-110); Potassium 4.3 mmol/L (3.4-5.0); Sodium 133 mmol/L (137-145)
[2021-05-19] MEDS: ENOXAPARIN 30 MG/0.3 ML SYRINGE SUB-Q (10:23)
[2021-05-19] MEDS: carvediloL 6.25 MG TABLET PO ×2 (10:23→23:18)
[2021-05-19] MEDS: ACIDOPHILUS/BULGARICUS CHEWABLE TABLET 1 TABLET PO ×4 (10:25→23:18)
[2021-05-19] MEDS: guaiFENesin 12 HR 600 MG TABCR PO ×2 (10:25→23:21)
[2021-05-19] MEDS: POTASSIUM CHLORIDE 20 MEQ TABLET.ER PO (10:25)
[2021-05-19] MEDS: SACUBITRIL/VALSARTAN 24-26 MG TABLET 1 TAB PO ×2 (10:25→23:22)
[2021-05-19] MEDS: FUROSEMIDE 40 MG TABLET PO (10:26)
[2021-05-19] MEDS: ALPRAZolam (*CRX) 0.5 MG TABLET PO ×3 (10:28→17:03)
--- NOTE | 2021-05-19 11:20 | PM.PNCARD ---
Progress Note: A&P Assessment and Plan (1) Acute on chronic systolic and diastolic heart failure, NYHA class 1: Code(s): I50.43 - Acute on chronic combined systolic (congestive) and diastolic (congestive) heart failure Status: Acute Assessment and Plan: History of diastolic CHF for which she was hospitalized in May 2020. 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 No clinical evidence of ACS or CAD. Improving with conventional therapy with furosemide, carvedilol, lisinopril; looks euvolemic. will lower her furosemide down to 20 mg daily continue Entresto Will schedule her follow-up Mai couple of weeks and she will have a repeat echocardiogram in approximately 2-4 weeks in the office. (2) Pericardial effusion: Code(s): I31.3 - Pericardial effusion (noninflammatory) Status: Acute Assessment and Plan: Moderate pericardial effusion which is a little odd, not common with COVID or COVID myocarditis but there is an association. No chest pain or EKG changes that are typical for pericarditis. Fortunately no evidence of tamponade physiology. No history of connective tissue disease or tuberculosis On Decadron which may help the pericardial effusion. Recheck a limited echo in 2-4 weeks. If the effusion is not improved, can add colchicine (though that may cause diarrhea, which may cloud the picture since she had is a carrier of C diff) or a nonsteroidal. (3) Pneumonia due to 2019 novel coronavirus: Code(s): U07.1 - COVID-19; J12.82 - Pneumonia due to coronavirus disease 2019 Status: Acute Assessment and Plan: off oxygen. Tested negative now. Discharge? (4) Clostridioides difficile carrier: Code(s): Z22.1 - Carrier of other intestinal infectious diseases Status: Acute (5) HTN (hypertension): Qualifiers: Hypertension type: primary hypertension Qualified Code(s): I10 - Essential (primary) hypertension Code(s): I10 - Essential (primary) hypertension Status: Acute Assessment and Plan: At goal Subjective Date/time seen: 05/19/21 11:20 Interval history: Fern Grier is an 85-year-old female with a history of hypertension, hypothyroidism, COVID pneumonia in August 2019, recent Clostridium difficile colitis in February 2021 who is seen in follow-up for COVID pneumonia. Date of service 05/19/2021: She denies any chest pain, shortness breath. No edema in wants to go back to her assisted living Review of Systems Constitutional: Constitutional: Reports fatigue Eyes: Eyes: Reports no additional eye complaints ENT: Denies epistaxis Cardiovascular: Cardiovascular: Denies chest pain, Denies pedal edema, Denies leg edema, Denies lightheadedness, Reports dyspnea and Reports dyspnea on exertion Respiratory: Respiratory: Denies chest congestion, Denies cough, Reports dyspnea, Reports dyspnea on exertion and Denies wheezing Gastrointestinal: Gastrointestinal: Denies abdominal pain, Denies hematochezia and Denies diarrhea Genitourinary: Genitourinary: Denies hematuria Musculoskeletal: Musculoskeletal: Reports no additional musculoskeletal complaints Integumentary/Breasts: Skin/Breast: Denies rash Neurologic: Reports system reviewed and no additional complaints, except as documented Psychiatric: Psychiatric: Reports no additional psychiatric complaints Endocrine: Endocrine: Reports fatigue Allergic/Immunologic: Allergic/Immunologic: Denies wheezing Exam Narrative: Older chatty female in bed, NAD. Const: General: comfortable and no acute distress HENMT: General nose exam: no epistaxis Mouth: Yes moist mucous membranes Neck: Neck: supple and no JVD Thyroid: thyroid normal Carotids: no bruits Lymphatic: lymphadenopathy not noted Resp: Auscultation: clear to auscult
--- NOTE | 2021-05-19 13:42 | P.PNIM_ITS ---
Progress Note: A&P Assessment and Plan (1) Clostridioides difficile carrier: Code(s): Z22.1 - Carrier of other intestinal infectious diseases Status: Acute Assessment and Plan: The patient has positive C diff test but is not having active diarrhea. * She had recent C diff infection and was treated with Dificid. * She may still have some residual setting of spores. * No need for further treatment at this time. Stools are formed and she is asymptomatic * Continue probiotic. (2) CHF (congestive heart failure): Code(s): I50.9 - Heart failure, unspecified Status: Acute Assessment and Plan: The patient denies history of CHF but is on beta myles, SOPHIA-inhibitor and Lasix suggesting likely history of CHF. She was hospitalized at [facility] in May for CHF exacerbation. * Echo reviewed today showed EF 20-25% * Appreciate cardiology consultation * Monitor strict I&O's and daily weights. * PO furosemide 20 mg daily * Continue Entresto (3) Person under investigation for COVID-19: Code(s): Z20.822 - Contact with and (suspected) exposure to COVID-19 Status: Acute Assessment and Plan: The patient had COVID antigen testing which was positive 05/15. PCR was negative 05/17 * CTA shows groundglass opacities of bilateral lungs consistent with edema vs pneumonia * No longer requring supplemental O2 * Hold dexamethasone and remdesivir as COVID status is unclear; repeat PCR pending. No longer requiring O2 so not a candidate for continued therapy * Continue isolation precautions while awaiting repeat test * No elevation of inflammatory markers, makes COVID-19 less likely * Supportive care as needed to include bronchodilators, expectorants, antipyretics * She has not been vaccinated for COVID-19 (4) Acute respiratory failure with hypoxia: Code(s): J96.01 - Acute respiratory failure with hypoxia Status: Acute Assessment and Plan: Due to CHF versus COVID. * Required up to 4 L supplemental O2, has been weaned to room air. Maintaining adequate O2 sats. * Will proceed with home O2 eval with plans for discharge tomorrow pending repeat COVID test (5) Pancytopenia: Code(s): D61.818 - Other pancytopenia Status: Acute Assessment and Plan: Improving. WBC has normalized * Etiology not clear, possibly due to viral illness * Continue to monitor CBC (6) Acute kidney injury: Code(s): N17.9 - Acute kidney failure, unspecified Status: Acute Assessment and Plan: Baseline is unclear but expect she does have some degree of CKD. * Creatinine up to 1.4, likely due to need for IV diuresis * Hopeful improvement with reducing Lasix to 20 mg * Monitor renal function closely and renally dose medications (7) Acquired hypothyroidism: Code(s): E03.9 - Hypothyroidism, unspecified Status: Acute Assessment and Plan: TSH is within normal limits. * Continue levothyroxine (8) Pericardial effusion: Code(s): I31.3 - Pericardial effusion (noninflammatory) Status: Acute Assessment and Plan: Echo shows moderate pericardial effusion without tamponade. * Appreciate cardiology consult * Etiology for this is not clear; possibly related to viral illness. TSH is normal. * Plan for repeat echo in 2-4 weeks per cardiology recommendations Subjective Date/time seen: 05/19/21 13:42 Interval history: Date of service: 05/18/2021 Fern Grier is an 85-year-old female with a h
--- NOTE | 2021-05-19 13:42 | PM.IMPN ---
Progress Note: A&P Assessment and Plan (1) Clostridioides difficile carrier: Code(s): Z22.1 - Carrier of other intestinal infectious diseases Status: Acute Assessment and Plan: The patient has positive C diff test but is not having active diarrhea. She had recent C diff infection and was treated with Dificid. She may still have some residual setting of spores. No need for further treatment at this time. Stools are formed and she is asymptomatic Continue probiotic. (2) CHF (congestive heart failure): Code(s): I50.9 - Heart failure, unspecified Status: Acute Assessment and Plan: The patient denies history of CHF but is on beta myles, SOPHIA-inhibitor and Lasix suggesting likely history of CHF. She was hospitalized at [facility] in May for CHF exacerbation. Echo reviewed today showed EF 20-25% Appreciate cardiology consultation Monitor strict I&O's and daily weights. PO furosemide 20 mg daily Continue Entresto (3) Person under investigation for COVID-19: Code(s): Z20.822 - Contact with and (suspected) exposure to COVID-19 Status: Acute Assessment and Plan: The patient had COVID antigen testing which was positive 05/15. PCR was negative 05/17 CTA shows groundglass opacities of bilateral lungs consistent with edema vs pneumonia No longer requring supplemental O2 Hold dexamethasone and remdesivir as COVID status is unclear; repeat PCR pending. No longer requiring O2 so not a candidate for continued therapy Continue isolation precautions while awaiting repeat test No elevation of inflammatory markers, makes COVID-19 less likely Supportive care as needed to include bronchodilators, expectorants, antipyretics She has not been vaccinated for COVID-19 (4) Acute respiratory failure with hypoxia: Code(s): J96.01 - Acute respiratory failure with hypoxia Status: Acute Assessment and Plan: Due to CHF versus COVID. Required up to 4 L supplemental O2, has been weaned to room air. Maintaining adequate O2 sats. Will proceed with home O2 eval with plans for discharge tomorrow pending repeat COVID test (5) Pancytopenia: Code(s): D61.818 - Other pancytopenia Status: Acute Assessment and Plan: Improving. WBC has normalized Etiology not clear, possibly due to viral illness Continue to monitor CBC (6) Acute kidney injury: Code(s): N17.9 - Acute kidney failure, unspecified Status: Acute Assessment and Plan: Baseline is unclear but expect she does have some degree of CKD. Creatinine up to 1.4, likely due to need for IV diuresis Hopeful improvement with reducing Lasix to 20 mg Monitor renal function closely and renally dose medications (7) Acquired hypothyroidism: Code(s): E03.9 - Hypothyroidism, unspecified Status: Acute Assessment and Plan: TSH is within normal limits. Continue levothyroxine (8) Pericardial effusion: Code(s): I31.3 - Pericardial effusion (noninflammatory) Status: Acute Assessment and Plan: Echo shows moderate pericardial effusion without tamponade. Appreciate cardiology consult Etiology for this is not clear; possibly related to viral illness. TSH is normal. Plan for repeat echo in 2-4 weeks per cardiology recommendations Subjective Date/time seen: 05/19/21 13:42 Interval history: Date of service: 05/18/2021 Fern Grier is an 85-year-old female with a history of hypertension, hypothyroidism, COVID pneumonia in August 2019, recent Clostridium difficile colitis in February 2021 who is seen in follow-up for COVID pneumonia. She is doing fairly well today. Denies shortness of breaths. No cough. Denies ARTHUR. No nausea, vomiting, fever, chills. She is eating well. She was little upset that her coffee was too cold but is getting more. She does me that overall she is doing well but does feel a bit depressed about being
--- NOTE | 2021-05-19 14:37 | HOMEO2EVAL ---
Evaluation was performed at [facility] Home Oxygen Evaluation RC: Home Oxygen (O2) Evaluation Start: 05/19/21 13:41 Freq: ONCE Status: Active Protocol: RPE Activity Type Activity Date Activity User E-Sign Co-Sign Detail Recorded Client Recorded Date Recorded By Document 05/19/21 14:15 TAMARA [id number] 05/19/21 14:36 TAMARA Document 05/19/21 14:20 TAMARA [id number] 05/19/21 14:36 TAMARA Document 05/19/21 14:25 TAMARA [id number] 05/19/21 14:36 TAMARA 05/19/21 05/19/21 05/19/21 14:15 14:20 14:25 Home O2 Evaluation Test Phase Resting Exercise Resting Oxygen Delivery Room Air Room Air Room Air Pulse Oximetry (90-100 %) 92 93 93 Home Oxygen Evaluation Comments NO HOME O2 NEEDED Treatment Charges O2 Evaluation - Inpatient
--- NOTE | 2021-05-19 14:37 | PCRCNOTE ---
HOME O2 EVAL COMPLETED. NO HOME O2 NEEDED AT THIS TIME, RN NOTIFIED
[2021-05-19 19:19] LABS: SARS-CoV-2 RNA PCR Negative
[2021-05-20] MEDS: LEVOTHYROXINE SODIUM 88 MCG TABLET PO (05:10)
[2021-05-20 06:00] VITALS: BP 108/59; PULSE 74; RESP 16; TEMP 36.7; O2SAT 95
[2021-05-20 06:36] LABS: Hematocrit 40.5 % (37.0-47.0); Hemoglobin 13.1 g/dL (12.0-15.0); Immature Platelet Fraction Pct 5.9 % (0.9-11.2); Mean Corpuscular HGB Conc 32.3 g/dl (32-36); Mean Corpuscular Volume 117.4 fl (80-100); Mean Platelet Volume 11.7 fl (7.4-10.4); Platelet Count Result 81 k/mm3 (150-375); Red Blood Count 3.45 M/mm3 (4.2-5.4); Red Cell Distribution Width 16.5 % (11.5-14.5); White Blood Count 5.1 K/mm3 (4.5-10.0)
[2021-05-20 08:10] LABS: Anion Gap 2 mmol/L (8-16); Blood Urea Nitrogen 41 mg/dL (7-17); Carbon Dioxide 27 mmol/L (22-30); Chloride 103 mmol/L (98-107); Estimated CRCL calculation 23 ml/min; Estimated Glomerular Filt Rate 43; Glucose 84 mg/dL (65-110); Potassium 3.9 mmol/L (3.4-5.0); Sodium 132 mmol/L (137-145)
[2021-05-20 08:23] VITALS: PULSE 74
[2021-05-20] MEDS: FUROSEMIDE 20 MG TABLET PO (08:23)
[2021-05-20] MEDS: carvediloL 6.25 MG TABLET PO (08:23)
[2021-05-20] MEDS: SACUBITRIL/VALSARTAN 24-26 MG TABLET 1 TAB PO (08:23)
[2021-05-20] MEDS: ALPRAZolam (*CRX) 0.5 MG TABLET PO (08:23)
[2021-05-20] MEDS: ENOXAPARIN 30 MG/0.3 ML SYRINGE SUB-Q (08:23)
[2021-05-20] MEDS: ACIDOPHILUS/BULGARICUS CHEWABLE TABLET 1 TABLET PO (08:23)
[2021-05-20] MEDS: guaiFENesin 12 HR 600 MG TABCR PO (08:24)
[2021-05-20] MEDS: POTASSIUM CHLORIDE 20 MEQ TABLET.ER PO (08:24)
--- NOTE | 2021-05-20 10:02 | PM.DS ---
DS: Admitting Diagnosis Discharge Date 05/20/2021 Admitting Diagnosis Clostridium difficile carrier DS: Discharge Diagnosis Discharge Diagnosis (1) Clostridioides difficile carrier: Code(s): Z22.1 - Carrier of other intestinal infectious diseases Status: Acute Assessment and Plan: The patient had positive C diff test on 05/11/21 but has not had diarrhea for >2 weeks. She has had 1 week of formed stools. She tested positive for C diff in February 2021 and completed treatment with Dificid. Unfortunately she has had subsequent positive test due to the fact that she is a carrier and may still have some residual spores. She has remained in isolation at her nursing facility for extended period of time due to this positive test. Because it has been well over 48 hours since any episodes of diarrhea and she has had many formed bowel movements since then, she no longer requires treatment or isolation for CDI. Continue probiotic. (2) CHF (congestive heart failure): Code(s): I50.9 - Heart failure, unspecified Status: Acute Assessment and Plan: The patient denies history of CHF but is on beta myles, SOPHIA-inhibitor and Lasix suggesting likely history of CHF. She was hospitalized at [facility] in May for CHF exacerbation, at that time related to diastolic CHF. Echo performed on 05/16 which demonstrated a systolic and diastolic CHF with an EF of 20-25%. She was seen in consultation by Cardiology and received IV diuresis. She had symptomatic improvement and was able to be weaned from oxygen. Home O2 eval showed no need for supplemental O2. Resumed back on her home Lasix 20 mg daily. Home lisinopril was changed to Entresto 24-26 mg b.i.d. Continue low-dose carvedilol. Outpatient cardiology follow-up will be scheduled. (3) COVID-19 ruled out by laboratory testing: Code(s): Z20.822 - Contact with and (suspected) exposure to COVID-19 Status: Acute Assessment and Plan: She had positive COVID antigen testing 05/15/2021. CTA showed ground-glass opacities of the bilateral lungs concerning for edema vs pneumonia. She did not have elevated inflammatory markers. She was started on dexamethasone and remdesivir given positive antigen testing with oxygen requirement. However, PCR testing returned negative and dexamethasone and remdesivir were discontinued. Given the unclear picture, repeat PCR testing performed 05/19/2021 also negative. She has not been vaccinated for COVID-19 and we discussed following up with her PCP to consider vaccination. (4) Acute respiratory failure with hypoxia: Code(s): J96.01 - Acute respiratory failure with hypoxia Status: Acute Assessment and Plan: Due to CHF. Initially felt to be related to COVID, however COVID testing was negative. She did require up to 4 L supplemental O2 but was able to be weaned to room air with diuresis. No supplemental oxygen needed per home O2 eval (5) Pancytopenia: Code(s): D61.818 - Other pancytopenia Status: Acute Assessment and Plan: Etiology for this is unclear. Initially felt to be related to viral illness, however COVID-19 was ruled out. Possibly another underlying viral illness given her new cardiomyopathy and pericardial effusion. White blood cell count, hemoglobin, and hematocrit normalized. Platelets remained decreased. Recommend repeat CBC with differential in 1 week for further monitoring. (6) Acute kidney injury: Code(s): N17.9 - Acute kidney failure, unspecified Status: Acute Assessment and Plan: Baseline is unclear but expect she does have some degree of CKD. Creatinine was elevated up to 1.4, likely due to need for IV diuresis. Creatinine improved to 1.2 when her home Lasix 20 mg was resumed. (7) Acquired hypothyroidism: Code(s): E03.9 - Hypothyroidism, unspecified Status: Acute Assessment and Plan: TSH within normal limits. Contin
== END 2021-05-20 12:44 | disposition home or self-care (01) | DRG 291 ==
LOC: ANHED 19:41 → ANHIMU 05-16 00:10 → ANH3MEDSUR 05-16 14:52
PROVIDERS: Admitting Provider Internal Medicine; Emergency Provider Emergency Medicine; PCP Internal Medicine; Visit Provider Physician Assistant
DX: I50.43 Acute on chronic combined systolic (congestive) and diastolic (congestive) heart failure (principal); J96.01 Acute respiratory failure with hypoxia; D61.818 Other pancytopenia; N17.9 Acute kidney failure, unspecified; I42.9 Cardiomyopathy, unspecified; I31.3 Pericardial effusion (noninflammatory); Z23 Encounter for immunization; Z20.822 Contact with and (suspected) exposure to COVID-19; R93.89 Abnormal findings on diagnostic imaging of other specified body structures; N18.9 Chronic kidney disease, unspecified; E03.9 Hypothyroidism, unspecified; K57.90 Diverticulosis of intestine, part unspecified, without perforation or abscess without bleeding; F41.9 Anxiety disorder, unspecified; F32.A Depression, unspecified; Z86.16 Personal history of COVID-19; Z90.49 Acquired absence of other specified parts of digestive tract; Z22.1 Carrier of other intestinal infectious diseases
CPT/HCPCS: 36415; 36600; 71045; 71275; 74177; 80048; 80053; 81003; 82728; 82805; 83615; 83880; 84443; 84460; 84484; 85025; 85027; 85055; 85380; 85610; 86140; 87426; 90471; 90653; 93005; 93306; 94618; 96361; 96374; 96375; 97161; 97165; 99285; A9270; C9803; G0008; J1100; J1650; J1940; J7030; Q9967; U0003; U0005

== ENCOUNTER 2021-10-19 19:41 | Emergency (ER) | payer MEDICARE, MEDICAID, SELFPAY ==
--- NOTE | ~2021-10-19 | XR_ITS ---
XR chest 2V 10/19/2021 21:03 Indication: Dyspnea. Productive cough. Procedure: 2 view chest Comparison: 05/18/2021 Findings: Cardiomegaly. The lungs are hyperinflated which is consistent with, but not diagnostic of c hronic obstructive pulmonary disease. There are multiple bilateral pulmonary nodules which are stable compared with prior examination allowing for differences of technique. No significant effusion. No p neumothorax. No acute osseous abnormality. Interval resolution of bilateral pleural effusions. Impression: 1: No acute cardiopulmonary disease. 2: No significant change to multiple bilateral pulmonary nodules which may be infectious/inflammatory although malignancy is not excluded. Reviewed, dictated and finalized at location A. Impression: 1: No acute cardiopulmonary disease. 2: No significant change to multiple bilateral pulmonary nodules which may be i nfectious/inflammatory although malignancy is not excluded.
[2021-10-19 19:42] VITALS: BP 205/86; PULSE 79; RESP 18; TEMP 36; O2SAT 93
[2021-10-19 20:35] VITALS: BP 195/89; PULSE 70; RESP 18; O2SAT 93
--- NOTE | 2021-10-19 21:26 | ED.GENADULT ---
HPI - General Adult General Chief complaint: Unspecified Stated complaint: difficulty swallowing Time Seen by Provider: 10/19/21 20:42 History of Present Illness HPI narrative: Patient is an 86-year-old female who presents ER with concerns related to her swallowing. She reports while at dinner this evening she noticed that she was having some gurgling in the back of her throat when she swallowed. She denies choking on any food whether it be solid or liquid. She has no chest pain or chest pressure. No abdominal discomfort. No nausea or vomiting. Denies issues with dysphagia in the past. No fevers or chills or sweats. Patient tolerating oral secretions and in no distress. Patient reports history of dyspepsia but has no heartburn at this time. Related Data Allergies Allergy/AdvReac Type Severity Reaction Status Date / Time esomeprazole Allergy Rash Verified 10/17/21 10:03 Review of Systems Review of Systems: All systems reviewed & are unremarkable except as noted in HPI and below Constitutional: Constitutional: Denies chills, Denies fever(s) and Denies weakness ENT: Denies dysphagia and Denies throat swelling Cardiovascular: Cardiovascular: Denies chest pain, Denies radiating jaw, neck or arm pain and Denies orthopnea Respiratory: Respiratory: Denies cough and Denies dyspnea Gastrointestinal: Gastrointestinal: Denies abdominal pain, Denies belching, Denies heartburn, Denies nausea and Denies vomiting PMFSH Past Medical History Medical History Acquired hypothyroidism Anxiety C. difficile colitis (~02/2021) Depression Diverticulosis HTN (hypertension) Pneumonia due to COVID-19 virus (~08/2019) Surgical History Surgical History History of appendectomy Hx of cholecystectomy Family History Family History Father Heart disease Mother Diabetes mellitus Sibling Diabetes mellitus Social History Social History Social History: She has been since December of 2019. Her suffered from dementia prior to his . She has 2 sons. She is a lifelong nonsmoker. She does not drink alcohol. She used to work as a assistant principal at an elementary school. Smoking status: Former smoker Second hand tobacco smoke exposure: Yes Alcohol intake: former Substance use: never Substance use type: does not use Gender identity (if verbalized by the patient): Female Sexual Orientation (if Verbalized by the Patient): Straight or Heterosexual Spiritual care concerns: No Exam Narrative: GENERAL: Well-appearing, well-nourished, and in no acute distress. HEAD: Normocephalic, atraumatic. EYES: PERRL and EOMI. ENT: Mucous membranes moist. Tolerating oral secretions. Posterior oropharynx normal in appearance and uvula midline and nonedematous. NECK: Supple. CHEST: Clear to auscultation. No respiratory distress. HEART: Regular rate and rhythm. Normal peripheral pulses. ABDOMEN: Soft, nontender, nondistended, normal active bowel sounds. EXTREMITIES: Normal range of motion. No edema. NEURO: Alert and oriented x3. PSYCH: Normal mood and affect. Course Course Emergency Course: Chest x-ray with granulomatous disease. Recommend outpatient evaluation with low dose radiation CT. Nodule seen on previous CT in the past. Patient eating drinking without issue in the ER and tolerating oral secretions. Patient with no abnormal lung sounds and no orthopnea. Vital Signs Vital signs: Vital Signs Temperature 96.8 F L 10/19/21 19:42 Pulse Rate 79 10/19/21 19:42 Respiratory Rate 18 10/19/21 19:42 Blood Pressure 205/86 H 10/19/21 19:42 Pulse Oximetry 93 10/19/21 19:42 Oxygen Delivery Room Air 10/19/21 19:42 Temperature 96.8 F L 10/19/21 19:42 Pulse Rate 7
[2021-10-19 21:35] VITALS: BP 102/83; PULSE 65; RESP 16; O2SAT 95
[2021-10-19 22:05] VITALS: BP 164/64; PULSE 65; RESP 18; O2SAT 95
== END 2021-10-19 22:08 | disposition home or self-care (01) ==
PROVIDERS: Emergency Provider Emergency Medicine; PCP Internal Medicine
DX: R13.10 Dysphagia, unspecified (principal); R91.8 Other nonspecific abnormal finding of lung field; E03.9 Hypothyroidism, unspecified; I10 Essential (primary) hypertension; F41.9 Anxiety disorder, unspecified; Z86.16 Personal history of COVID-19; Z87.01 Personal history of pneumonia (recurrent); Z77.22 Contact with and (suspected) exposure to environmental tobacco smoke (acute) (chronic)
CPT/HCPCS: 71046; 99283

== ENCOUNTER 2021-12-05 09:06 | Outpatient (CLI) | payer MEDICARE, MEDICAID, SELFPAY ==
[2021-12-05 09:39] LABS: Alanine Aminotransferase 18 U/L (6-35); Albumin Level 3.9 g/dL (3.5-5.1); Alkaline Phosphatase 70 U/L (38-126); Anion Gap 6 mmol/L (8-16); Aspartate Amino Transferase 41 U/L (14-36); Bilirubin,Total 0.4 mg/dL (0.2-1.3); Blood Urea Nitrogen 26 mg/dL (7-17); Calcium 8.1 mg/dL (8.4-10.2); Carbon Dioxide 30 mmol/L (22-30); Chloride 107 mmol/L (98-107); Estimated Glomerular Filt Rate 43; Glucose 87 mg/dL (65-110); Potassium 3.8 mmol/L (3.4-5.0); Sodium 143 mmol/L (137-145)
[2021-12-05 10:10] LABS: Thyroid Stimulating Hormone 0.629 uIU/mL (0.465-4.680)
== END 2021-12-05 09:07 | disposition home or self-care (01) ==
LOC: ANHLAB 09:07
PROVIDERS: PCP Internal Medicine; Visit Provider Nurse Practitioner
DX: E03.9 Hypothyroidism, unspecified (principal); I50.43 Acute on chronic combined systolic (congestive) and diastolic (congestive) heart failure
CPT/HCPCS: 36415; 80053; 84443

== ENCOUNTER 2022-02-13 09:50 | Outpatient (CLI) | payer MEDICARE, MEDICAID, SELFPAY ==
[2022-02-13 11:08] LABS: Alanine Aminotransferase 13 U/L (6-35); Albumin Level 3.8 g/dL (3.5-5.1); Alkaline Phosphatase 74 U/L (38-126); Anion Gap 12 mmol/L (8-16); Aspartate Amino Transferase 35 U/L (14-36); Bilirubin,Total 0.6 mg/dL (0.2-1.3); Blood Urea Nitrogen 22 mg/dL (7-17); Calcium 8.3 mg/dL (8.4-10.2); Carbon Dioxide 18 mmol/L (22-30); Chloride 112 mmol/L (98-107); Estimated Glomerular Filt Rate 53; Glucose 85 mg/dL (65-110); Potassium 4.1 mmol/L (3.4-5.0); Sodium 142 mmol/L (137-145)
== END 2022-02-13 09:51 | disposition home or self-care (01) ==
LOC: ANHLAB 10:11
PROVIDERS: PCP Internal Medicine; Visit Provider Internal Medicine
DX: R07.89 Other chest pain (principal)
CPT/HCPCS: 36415; 80053

== ENCOUNTER 2022-02-20 09:29 | Outpatient (CLI) | payer MEDICARE, OTHER, SELFPAY ==
[2022-02-23 21:06] LABS: Albumin 3.5 g/dL (3.8-4.8); Alpha 1 Globulin 0.3 g/dL (0.2-0.3); Alpha 2 Globulin 0.7 g/dL (0.5-0.9); Beta 1 Globulin 0.4 g/dL (0.4-0.6); Gamma Globulin 3.1 g/dL (0.8-1.7); Protein, Total 8.2 g/dL (6.1-8.1)
== END 2022-02-20 09:30 | disposition home or self-care (01) ==
LOC: ANHLAB 09:31
PROVIDERS: PCP Internal Medicine; Visit Provider Internal Medicine
DX: E88.09 Other disorders of plasma-protein metabolism, not elsewhere classified (principal)
CPT/HCPCS: 36415; 84155; 84165

== ENCOUNTER 2022-05-08 10:01 | Outpatient (CLI) | payer MEDICARE, MEDICAID, SELFPAY ==
[2022-05-08 11:43] LABS: Anion Gap 2 mmol/L (8-16); Blood Urea Nitrogen 20 mg/dL (7-17); Calcium 7.9 mg/dL (8.4-10.2); Carbon Dioxide 27 mmol/L (22-30); Chloride 109 mmol/L (98-107); Estimated Glomerular Filt Rate 36; Glucose 88 mg/dL (65-110); Potassium 4.1 mmol/L (3.4-5.0); Sodium 138 mmol/L (137-145)
== END 2022-05-08 10:02 | disposition home or self-care (01) ==
LOC: ANHLAB 10:05
PROVIDERS: PCP Internal Medicine; Visit Provider Nurse Practitioner Adult Health
DX: I50.42 Chronic combined systolic (congestive) and diastolic (congestive) heart failure (principal)
CPT/HCPCS: 36415; 80048

== ENCOUNTER 2022-05-17 20:40 | Inpatient (IN) | payer MEDICARE, MEDICAID, SELFPAY ==
[2022-05-17] VITALS (20 sets, daily range): BP systolic 174–212; BP diastolic 90–138; PULSE 77–110; RESP 16–37; O2SAT 88–97
--- NOTE | ~2022-05-17 | XR_ITS ---
Portable chest x-ray Comparison: 05/22/2022 Clinical History: Shortness of breath Findings: Moderate left pleural effusion and probable minimal right pleural effusion are present, es sentially unchanged. Calcified right upper lobe granuloma present. Cardiomediastinal silhouette is st able. Bones and soft tissues are unremarkable. Impression: Moderate left pleural effusion and minimal right pleural effusion, unchanged. Reviewed, dictated and finalized at location . CHISE SALES REPRESENTATIVE Impression: Moderate left pleural effusion and minimal right pleural effusion, unchanged.
--- NOTE | ~2022-05-17 | CT_ITS ---
EXAMINATION: CT diagnostic chest wo con DATE: 05/19/2022 11:01 INDICATION: pulmonary edema TECHNIQUE: Computed tomography (CT) of the chest was performed with 100 mL Omnipaque-350 intravenous contrast. Automated exposure control and iterative reconstruction technique were employed. The dose-l ength product was 172.71 mGy-cm. COMPARISON: 05/15/2021. FINDINGS: CHEST: Thoracic aorta: Arch calcification. No significant dilation. Anemia. Lung parenchyma and airways: Scattered air cysts. Decreased pulmonary edema. Persistent bibasilar dep endent atelectasis/consolidation. Thoracic inlet, axillae and chest wall: No thyroid or soft tissue mass. No axillary lymphadenopathy. Mediastinum: Based on lymphadenopathy. Heart and pericardium: Aortic and mitral calcification. Mild cardiomegaly. Stable moderate pericardia l fluid. Coronary artery calcifications: Mild. Pleura: Decreased left and stable right small effusions. Upper abdomen: No significant acute finding. Thoracic bones: No acute osseous finding in the chest. IMPRESSION: Improving pulmonary edema. Stable pulmonary nodules, prior recommendation for short-term follow-up is unchanged. Improving left and stable right small pleural effusions. Persistent moderate pericardial effusion. Mediastinal lymphadenopathy. Reviewed, dictated and finalized at location K. P THERAPIST IMPRESSION: Improving pulmonary edema. Stable pulmonary nodules, prior recommendation for s hort-term follow-up is unchanged. Improving left and stable right small pleural effusions. Persistent moderate pericardial effusion. Mediastinal lymphadenopat hy.
--- NOTE | ~2022-05-17 | XR_ITS ---
EXAMINATION: XR chest 1V portable DATE: 05/18/2022 09:25 INDICATION: Pneumonia versus pulmonary edema TECHNIQUE: frontal view of the chest was obtained. COMPARISON: Chest radiograph dated 05/17/2022 FINDINGS: Cardiac megalies with pulmonary vascular congestion. Unchanged opacities in the right lower lung zone including a small right pleural effusion with blunting at costophrenic angle. Interval increase in r etrocardiac consolidation the left lower lung zone due at least in part to likely enlarging small lef t pleural effusion. Slight increase in opacities in the left midlung zone. Old left rib fracture. IMPRESSION: 1. Unchanged opacities in the right lower lung zone and increasing opacities in the left mid and lowe r lung zones which could represent atelectasis, pneumonia, mild pulmonary edema or some combination t hereof. 2. Unchanged small right and decreasing larger but still small left pleural effusions. 3. Cardiomegaly with pulmonary vascular congestion. Reviewed, dictated and finalized at location B. CT ENTRY MIDWIFE IMPRESSION: 1. Unchanged opacities in the right lower lung zone and increasing opacities in the left mid and lower lung zones which could represent atelectasis, pneumonia , mild pulmonary edema or some combination thereof. 2. Unchanged small right and decreasing larger but still small left pleural eff usions. 3. Cardiomegaly with pulmonary vascular congestion.
--- NOTE | ~2022-05-17 | XR_ITS ---
EXAMINATION: XR chest 2V DATE: 05/22/2022 09:55 INDICATION: Shortness of breath TECHNIQUE: frontal and lateral views of the chest were obtained. COMPARISON: Chest radiograph dated and CT dated 05/19/2022 FINDINGS: No significant change in retrocardiac consolidation and blunting at the bilateral costophrenic angles consistent with small bilateral pleural effusions with associated bibasilar atelectasis and/or pneum onia, left greater than right. Mild biapical pleural-parenchymal scarring. A few bilateral calcified pulmonary nodules consistent with granulomatous disease. No pneumothorax. Enlarged cardiac silhouette . IMPRESSION: 1. Unchanged small bilateral pleural effusions with associated bibasilar atelectasis and/or pneumonia , left greater than right. 2. Enlarged cardiac silhouette which on prior CT correspond both cardiomegaly and a moderate-sized pe ricardial effusion. Reviewed, dictated and finalized at location A. MAKER IMPRESSION: 1. Unchanged small bilateral pleural effusions with associated bibasilar atelec tasis and/or pneumonia, left greater than right. 2. Enlarged cardiac silhouette which on prior CT correspond both cardiomegaly a nd a moderate-sized pericardial effusion.
--- NOTE | ~2022-05-17 | XR_ITS ---
XR chest 1V portable DATE: 05/17/2022 21:25 INDICATION: Cough, shortness of breath, congestive heart failure, hypertension. TECHNIQUE: Portable AP chest on 05/17/2000 20/2 and 15/06/2019 COMPARISON: 10/19/2021 PA and lateral views FINDINGS: Cardiomegaly. Aortic calcification. There is pulmonary vascular congestion. There are bilateral infiltrates which are more prominent in t he central and particularly lower lung zones, especially on the left. Small right pleural effusion. D ifferential diagnosis includes pulmonary edema as well as pneumonia and less likely aspiration pneumo nitis. Diffuse osteopenia IMPRESSION: Cardiomegaly, pulmonary vascular congestion, bilateral primarily central and particularly lower lung zone infiltrates, small right pleural effusion. Dysarthria pulmonary edema is suspected. Pneumonia is not excluded, less likely aspiration pneumonitis Reviewed, dictated and finalized at location A. ER SETTER IMPRESSION: Cardiomegaly, pulmonary vascular congestion, bilateral primarily ce ntral and particularly lower lung zone infiltrates, small right pleural effusio n. Dysarthria pulmonary edema is suspected. Pneumonia is not excluded, less lik my aspiration pneumonitis
--- NOTE | ~2022-05-17 | CT_ITS ---
EXAMINATION: CT brain wo con DATE: 05/21/2022 11:51 INDICATION: Unresponsive TECHNIQUE: Computed tomography (CT) of the head was performed without intravenous contrast. Sagittal and coronal reconstructions were performed. The mA was adjusted according to patient size. Iterative reconstruction technique was employed. The dose-length product was 605.33 mGy-cm. COMPARISON: None FINDINGS: No acute intracranial hemorrhage, acute infarction or abnormal extra axial fluid collection. There is moderate scattered white matter hypoattenuation consistent with chronic small vessel ischemic diseas e. Symmetric prominence of the sulci and ventricles consistent with mild to moderate age-appropriate diffuse cerebral volume loss. No mass/mass effect. Changes of bilateral intraocular lens replacement. The orbits and mastoid air cells are normal. Moderate mucosal thickening in the paranasal sinuses. I ntracranial calcified cerebral atherosclerosis is noted. IMPRESSION: 1. No acute intracranial process. 2. Age-related changes including mild diffuse volume loss and moderate scattered white matter hypoatt enuation consistent with chronic small vessel ischemic disease. Reviewed, dictated and finalized at location A. D MUSIC OPERATOR IMPRESSION: 1. No acute intracranial process. 2. Age-related changes including mild diffuse volume loss and moderate scattere d white matter hypoattenuation consistent with chronic small vessel ischemic di sease.
--- NOTE | 2022-05-17 20:51 | ECG_ITS ---
Measurements Intervals [place] Rate: 100 P: 205 WV: 113 QRS: -68 QRSD: 82 T: 31 QT: 322 QTc: 417 Interpretive Statements SINUS TACHYCARDIA WITH SHORT WV INTERVAL WITH OCCASIONAL VENTRICULAR PREMATURE COMPLEXES LEFT ANTERIOR FASCICULAR BLOCK [QRS AXIS <= -45, QR IN I, RS IN II] POOR R-WAVE PROGRESSION/CANNOT RULE OUT PREVIOUS ANTEROSEPTAL TN COMPARED TO ECG 05/15/2021 21:12:51 HEART RATE INCREASED AND SLIGHTLY DIFFERENT PRECORDIAL LEAD POSITION Electronically Signed On 05-18-2022 19:56:10 SENIOR MECHANICAL DESIGN ENGINEER by Blas Tiwari M.D.
--- NOTE | 2022-05-17 20:57 | ED.SOB ---
HPI - SOB/Dyspnea General Chief Complaint: Shortness of Breath/Dyspnea Stated Complaint: DIFFICULTY IN BREATHING, HI B/P Time Seen by Provider: 05/17/22 20:47 Source: patient and EMS Mode of arrival: EMS Limitations: no limitations History of Present Illness HPI Narrative: 86 years old white female came from assisted living by ambulance complaining of increased shortness of breath over the last few days/weeks got worse prior to arrival to the emergency room. She denies any fever, chills, nausea, vomiting, chest pain, back pain. Patient reports taking her blood pressure and Xanax prior to arrival to the emergency room. History of pancytopenia, pericardial effusion, acute on chronic systolic and diastolic heart failure, acute hypoxic respiratory failure, anxiety, hypertension. Patient does not take antiplatelet or anticoagulant medications. Patient also does not take oxygen at home. Patient reports DNR Patient arrived to the ED with oxygen by nasal cannula at 3 L. And the blood pressure 212/138. Patient is telling me that oxygen makes her feel much better. Related Data Home Medications Medication Instructions Recorded Confirmed Lactobacillus acidophilus 1 cap PO DAILY 05/18/22 05/18/22 (Acidophilus capsule) acetaminophen 325 mg capsule 650 mg PO Q6H PRN Pain (Scale 05/18/22 05/18/22 Score 1-3) Allergies Allergy/AdvReac Type Severity Reaction Status Date / Time esomeprazole Allergy Rash Verified 12/19/21 10:15 Review of Systems Review of Systems: All systems reviewed & are unremarkable except as noted in HPI and below PMFSH Past Medical History Medical History Acquired hypothyroidism Anxiety C. difficile colitis (~02/2021) Chronic kidney disease, stage 3 With creatinine between 1 and 1.4 Combined systolic and diastolic congestive heart failure Echocardiogram 06/2021: Mild concentric left ventricular hypertrophy, mild left ventricular enlargement, moderate global left ventricular systolic dysfunction with more pronounced hypokinesis involving inferior lateral wall, impaired diastolic relaxation grade 1 ejection fraction 35-40%, mild left atrial enlargement, small pericardial effusion Depression Diverticulosis HTN (hypertension) Hypothyroidism Pneumonia due to COVID-19 virus (~08/2019) Surgical History Surgical History History of appendectomy Hx of cholecystectomy Family History Family History Father Heart disease Mother Diabetes mellitus Sibling Diabetes mellitus Social History Social History Social History: She has been since December of 2019. Her suffered from dementia prior to his and she was the primary caregiver. She has 2 sons. She is a lifelong nonsmoker. She does not drink alcohol. 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 Code status: DNR/DNI Healthcare power of corporate attorney: Isma Grier (son) Smoking status: Never smoker Second hand tobacco smoke exposure: Yes Alcohol intake: never Substance use: never Substance use type: does not use Lack of Transportation: No Lack of Food: Never True Current Housing: I Have Housing Concerned About Future Housing: YES Difficulty Paying Gas/Electric Bills: No Difficulty Paying for Meds: No Currently Unemployed: No Education: High School Diploma/GED Difficulty w/ Childcare or Family Care: No Gender identity (if verbalized by the patient): Female Sexual Orientation (if Verbalized by the Patient): Straight or Heterosexual Spiritual care concerns: No Exam Narrative: General appearance: Well-developed, well-nourished Skin: Normal color Head: Normocephalic, nontraumatic Eyes: Clear conjunctiva ENT: Oropharynx normal, ears normal, nose normal Neck:
[2022-05-17 21:05] LABS: Basophils Percent Auto 0.2 % (0.2-1.2); Hematocrit 35.3 % (37.0-47.0); Hemoglobin 11.1 g/dL (12.0-15.0); Immature Granulocyte Absolute 0.03 K/mm3 (0.00-0.031); Immature Granulocyte Percent A 0.5 % (0-0.5); Lymphocytes Absolute Auto 1.44 K/mm3 (0.9-3.2); Lymphocytes Percent Auto 23.5 % (18.3-44.2); Mean Corpuscular HGB Conc 31.4 g/dl (32-36); Mean Corpuscular Hemoglobin 36.9 pg (26-34); Mean Corpuscular Volume 117.3 fl (80-100); Mean Platelet Volume 10.4 fl (7.4-10.4); Monocytes Absolute Auto 0.1 K/mm3 (0.1-0.6); Monocytes Percent Auto 2.1 % (2.6-8.5); Neutrophils Absolute Auto 4.5 K/mm3 (1.3-6.7); Neutrophils Percent Auto 73.7 % (45.5-73.1); Platelet Count Result 115 k/mm3 (150-375); Red Blood Count 3.01 M/mm3 (4.2-5.4); Red Cell Distribution Width 16.4 % (11.5-14.5); White Blood Count 6.1 K/mm3 (4.5-10.0)
[2022-05-17 21:15] LABS: Alanine Aminotransferase 20 U/L (6-35); Albumin Level 4.1 g/dL (3.5-5.1); Alkaline Phosphatase 95 U/L (38-126); Anion Gap 8 mmol/L (8-16); Aspartate Amino Transferase 57 U/L (14-36); Bilirubin,Total 0.6 mg/dL (0.2-1.3); Blood Urea Nitrogen 18 mg/dL (7-17); Calcium 7.8 mg/dL (8.4-10.2); Carbon Dioxide 22 mmol/L (22-30); Chloride 112 mmol/L (98-107); Estimated Glomerular Filt Rate 36; Glucose 163 mg/dL (65-110); INR 1.2; Potassium 4.2 mmol/L (3.4-5.0); Prothrombin Time 14.4 Seconds (11.1-14.7); Sodium 142 mmol/L (137-145)
[2022-05-17 21:16] LABS: Partial Thromboplastin Time 29.7 SECONDS (22.3-36.8)
[2022-05-17] MEDS: NITROGLYCERIN OINTMENT 1 INCH DOSE TRANSDERM ×2 (21:21→22:46)
[2022-05-17] MEDS: FUROSEMIDE INJ 40 MG/4 ML VIAL IV PUSH (21:21)
[2022-05-17 21:26] LABS: Platelet Estimate Decreased (Adequate)
[2022-05-17 21:27] LABS: Macrocytosis 1+ (NORMAL); Ovalocytes 1+ (NORMAL); Schistocytes None Seen (NORMAL)
[2022-05-17 21:34] LABS: NT Pro B Type Natriuretic Pept 10500 pg/mL (5-100); Troponin I 0.044 ng/mL (0.000-0.034)
[2022-05-17 21:37] LABS: D Dimer 0.84 ug/mL (<0.48)
[2022-05-17 21:41] LABS: Influenza A QL RT-PCR Negative (Negative); Influenza B QL RT-PCR Negative (Negative); SARS-CoV-2 RNA PCR Negative
[2022-05-17] MEDS: FUROSEMIDE INJ 40 MG/4 ML VIAL 60 MG IV PUSH (22:13)
[2022-05-17 22:20] LABS: Alveolar/Arterial O2 Gradient 128.8 mmHg; Base Excess ABG -4.7 mEq/l (+/-2.0); Fractional Inspired Oxygen 32 %; HCO3 ABG 18.9 mEq/l (22.0-26.0); Oxyhemoglobin 90.8 % THb (90.0-100.0); PCO2 ABG 30.3 mmHg (35.0-45.0); PO2 ABG 63.9 mmHg (80.0-100.0); Total Hemoglobin 11.7 g/dL (12.0-18.0); pH ABG 7.412 (7.350-7.450)
[2022-05-17 22:21] LABS: Device NASAL CANNULA; Modified Allen's Test Pass; Site Drawn RIGHT RADIAL
[2022-05-17 22:41] LABS: Add Urine Microscopic? YES; Appearance Urine Clear (Clear); Bilirubin Urine Negative (Negative); Blood Urine 3+ (Negative); Color Urine Light Yellow (Yellow); Glucose Urine UA Negative (Negative); Ketones Urine Negative (Negative); Leukocyte Esterase Ur 1+ LEU/UL (Negative); Nitrate Urine Negative (Negative); Protein Urine Trace mg/dL (Negative); Specific Grav Ur 1.015 (1.001-1.035); Urobilinogen Urine 0.2 mg/dL (<2.0); pH Urine 5.5 (5.0-9.0)
[2022-05-17 22:46] LABS: Bacteria Urine Trace /hpf; Mucus Urine Rare /lpf; Squamous Epithelial Cell Urine Occasional /hpf (Few); WBC Clumps Urine Present /HPF; WBC Urine 31-50 /hpf
[2022-05-17] MEDS: ASPIRIN 325 MG TABLET PO (22:49)
[2022-05-18] VITALS (19 sets, daily range): BP systolic 104–180; BP diastolic 56–94; PULSE 62–75; RESP 16–27; TEMP 35.8–36.5; O2SAT 93–95; BMI 21.9
[2022-05-18 00:03] LABS: Lactic Acid Reflex 1.2 mmol/L (0.7-2.0)
[2022-05-18] MEDS: carvediloL 6.25 MG TABLET PO (00:31)
--- NOTE | 2022-05-18 01:38 | ADMGEN ---
This patient, Fern Grier, was admitted to IMU Room 212-01 on 05/18/22 at 0115. Patient/family oriented to hospital policies and general routines including ID bracelet, bed and alarms, visiting hours, pain management, procedures, bathroom and other care routines, personal items, smoking policy, room service/diet, and visiting hours. Information on how to activate the Rapid Response Team has been discussed. Patient/Family are encouraged to report perceived risks to care and to ask questions if they do not understand what they are told or what they should do.
--- NOTE | 2022-05-18 02:56 | PM.IMHP ---
H&P: HPI History of Present Illness Date/Time: 05/18/22 02:56 Chief Complaint: Shortness of breath Narrative: 86-year-old female with a past medical history of combined systolic and diastolic heart failure, hypothyroidism and hypertension who presented to the ER via EMS from [facility] due to shortness of breath. She reports that she has been short of breath for some time. She is stated to the ER staff that she had been increasing shortness of breath for 3 days but felt significantly worse today. The TURNTABLE WORKER at the [facility] gave the patient her meds and since the patient did not feel better she decided to have them call EMS. EMS arrived the patient's residence she was satting 86% on room air. The patient does not usually use oxygen. She denies any recent cough or congestion in is vaccinated against COVID. She had COVID last year about this time. She has not had any fevers or chills. She denies any lower extremity swelling, chest pain or palpitations. The patient is alert oriented x3 and recalls that she came in for shortness of breath but really could not provide me details with home lungs shortness of breath have been ongoing. She denies any other symptoms and wants to talk to me about my health problems instead of discussing why she came to the hospital. She seems to have some difficulty with her short-term memory. The patient reports she has been having some trouble with her left eye for quite some time. She states that over the last few months she has noticed some double vision. On exam patient does seem to have some medial deviation of the left eye. She reports that the double vision is intermittent. She has noticed some lightheadedness when she is up and walking. She reports that she has not had any significant diarrhea since she was started on cholestyramine. She denies any nausea or vomiting. She denies dysuria or changes in urinary frequency. She received a total of 100 mg of IV Lasix in the ER and 2 in of nitropaste. Her blood pressures prior to receiving these meds were as a 230s over 130s. Blood pressures have improved down to the 170 systolic by time she arrived to the IMU. The patient received Rocephin in the ER due to some pyuria but this has been discontinued since she is not having significant urinary symptoms, is afebrile and does not have a white count. Review of Systems Review of Systems: 12 systems were reviewed with pertinent positives and negatives per HPI. Except as documented in the HPI, all other systems were reviewed and are negative. [facility] Past Medical History Medical History (Updated 05/18/22 @ 03:44 by Cheyenne Martini DO) Acquired hypothyroidism Anxiety C. difficile colitis (~02/2021) Chronic kidney disease, stage 3 With creatinine between 1 and 1.4 Combined systolic and diastolic congestive heart failure Echocardiogram 06/2021: Mild concentric left ventricular hypertrophy, mild left ventricular enlargement, moderate global left ventricular systolic dysfunction with more pronounced hypokinesis involving inferior lateral wall, impaired diastolic relaxation grade 1 ejection fraction 35-40%, mild left atrial enlargement, small pericardial effusion Depression Diverticulosis HTN (hypertension) Pneumonia due to COVID-19 virus (~08/2019) Surgical History Surgical History History of appendectomy Hx of cholecystectomy Family History Family History Father Heart disease Mother Diabetes mellitus Sibling Diabetes mellitus Social History Social History (Updated 05/18/22 @ 03:33 by Cheyenne Martini DO) Social History: She has been since December of 2019. Her suffered from dementia prior to his and she was the primary caregiver. She has 2 sons. She is a lifelong nonsmoker. She does not drink alcohol. She used to work as a records assistant
[2022-05-18 03:35] LABS: Troponin I 0.221 ng/mL (0.000-0.034)
[2022-05-18] MEDS: NITROGLYCERIN OINTMENT 1 INCH DOSE TRANSDERM ×3 (06:00→17:15)
[2022-05-18] MEDS: LEVOTHYROXINE SODIUM 88 MCG TABLET PO (06:01)
[2022-05-18 06:26] LABS: Anion Gap 7 mmol/L (8-16); Blood Urea Nitrogen 20 mg/dL (7-17); Calcium 7.7 mg/dL (8.4-10.2); Carbon Dioxide 26 mmol/L (22-30); Chloride 110 mmol/L (98-107); Estimated CRCL calculation 20 ml/min; Estimated Glomerular Filt Rate 33; Glucose 93 mg/dL (65-110); Potassium 3.5 mmol/L (3.4-5.0); Sodium 143 mmol/L (137-145)
[2022-05-18 06:40] LABS: Troponin I 0.202 ng/mL (0.000-0.034)
[2022-05-18 08:28] LABS: Magnesium 2.1 mg/dL (1.6-2.3)
[2022-05-18] MEDS: ASPIRIN 81 MG CHEWABLE TABLET PO (08:39)
[2022-05-18] MEDS: POTASSIUM CHLORIDE 20 MEQ TABLET PO (08:39)
[2022-05-18] MEDS: ALPRAZolam (*CRX) 0.5 MG TABLET PO ×3 (08:39→17:14)
[2022-05-18] MEDS: ESCITALOPRAM OXALATE 10 MG TABLET PO (08:40)
[2022-05-18] MEDS: carvediloL 12.5 MG TABLET PO ×2 (08:40→22:05)
[2022-05-18] MEDS: CHOLESTYRAMINE LIGHT 4 GM POWD.PACK PO ×2 (08:40→17:14)
[2022-05-18] MEDS: SACUBITRIL/VALSARTAN 24-26 MG TABLET 1 TAB PO ×2 (08:40→22:05)
[2022-05-18] MEDS: ENOXAPARIN 30 MG/0.3 ML SYRINGE SUB-Q (08:40)
[2022-05-18] MEDS: FUROSEMIDE INJ 40 MG/4 ML VIAL IV PUSH ×2 (08:41→22:06)
[2022-05-18] MEDS: POTASSIUM CHLORIDE 20 MEQ TABLET.ER PO (08:41)
[2022-05-18] MEDS: ACIDOPHILUS/BULGARICUS CHEWABLE TABLET 1 TABLET PO (08:41)
--- NOTE | 2022-05-18 14:06 | PM.IMPN ---
Progress Note: A&P Assessment and Plan (1) Hypertensive emergency: Code(s): I16.1 - Hypertensive emergency Status: Acute (2) Acute respiratory failure with hypoxia: Code(s): J96.01 - Acute respiratory failure with hypoxia Status: Acute (3) CHF (congestive heart failure): Qualifiers: Heart failure chronicity: acute on chronic Heart failure type: combined systolic and diastolic Qualified Code(s): I50.43 - Acute on chronic combined systolic (congestive) and diastolic (congestive) heart failure Code(s): I50.9 - Heart failure, unspecified Status: Acute (4) Pulmonary edema cardiac cause: Code(s): I50.1 - Left ventricular failure, unspecified Status: Acute Plan At presentation, the patient had hypertensive emergency resulting in pulmonary edema/CHF exacerbation. The patient's symptoms have improved with diuresis and supplemental oxygen. She had an appropriate response to IV Lasix, producing 1.9 L of urine overnight. Patient's troponins are elevated likely due to type 2 infarct : n0.04->0.22->0.20 We will continue with diuresis Lasix 40 mg IV b.i.d.. Will monitor strict I&O's and daily weights. We will continue to trend troponins. Continue to l wean oxygen as tolerated. Will also continue the patient on Entresto .. Will repeat electrolyte panel in a.m. given aggressive diuresis. Patient received nitropaste in the ER. Will increase the patient's Coreg to 12.5 mg p.o. b.i.d.. Will provide p.r.n. antihypertensives as needed for systolic blood pressures greater than 160. Blood pressure fluctuated between 104/56-180/92. Stop p.r.n. medication. . Subjective Date/time seen: 05/18/22 18:06 Interval history: S: Patient was seen and examined at the bedside. She reported cough. Exam Narrative: Weight 56.1 kg BMI 21.9 Const: Other: No acute distress, well-developed well-nourished, appears stated age, sitting up in bed with head of bed at 40? HENMT: Other: Perioral cyanosis, mucous membranes are tacky, no oral pharyngeal erythema, head is normocephalic atraumatic Eyes: Other: Medial deviation of the left eye, pupils are equal and reactive, no scleral icterus, mild conjunctival pallor Neck: Other: No JVD, no carotid bruits Resp: Other: Decreased breath sounds bilaterally, no increased work of breathing Cardio: Other: Regular rate, regular rhythm, 2+ bilateral radial pedal pulses GI: Other: Soft, nontender, nondistended, positive bowel sounds Skin: Other: Generalized pallor, non jaundice Neuro: Other: Alert oriented x3, confused as the name of the current president, medial deviation of the left on a, pupils are equal and reactive, no pronator drift, equal seasonal tax preparer strength, lag of the left eyelid, no other facial asymmetry noted, no gross motor deficits noted on limited exam Extrem: Other: No clubbing, cyanosis or edema Psych: Other: Appropriate mood and affect, pleasant and cooperative Objective Data Vital Signs Vital Signs: Vital Signs - 24 hr 05/17/22 20:39 05/17/22 20:53 05/17/22 21:30 Temperature Pulse Rate 110 H 101 H Respiratory Rate 32 H Blood Pressure 212/138 H Pulse Oximetry 95 96 95 Oxygen Delivery Nasal Cannula Nasal Cannula Oxygen Flow Rate 3 3 05/17/22 21:31 05/17/22 21:45 05/17/22 21:46 Temperature Pulse Rate 99 101 H 94 Respiratory Rate 22 H Blood Pressure 202/123 H 195/108 H Pulse Oximetry 95 92 96 Oxygen Delivery Oxygen Flow Rate 05/17/22 22:06 05/17/22 22:15 05/17/22 22:16 Temperature Pulse Rate 106 H 96 96 Respiratory Rate 37 H 31 H 35 H Blood Pressure 203/117 H Pulse Oximetry 88 L 97 94 Oxygen Delivery Oxygen Flow Rate 05/17/22 22:30 05/17/22 22:41 05/17/22 22:42 Temperature Pulse Rate 97 91 98 Respiratory Rate 20 26 H 28 H Blood Pressure 181/98 H 181/98 H Pulse Oximetry 91 90 90 Oxygen Delivery Oxygen Flow Rate 05/17/22 22:43 05/17/22
[2022-05-18] MEDS: FAMOTIDINE 20 MG TABLET PO ×2 (15:48→22:04)
--- NOTE | 2022-05-18 16:11 | PC.NURSE ---
This patient, Fern Grier, was transferred to [[facility] ] on 05/18/22 at 1612. Personal belongings sent with patient. Report given to [[facility] nurse ]. Appropriate documentation sent with patient.
[2022-05-19] VITALS (7 sets, daily range): BP systolic 123–141; BP diastolic 65–83; PULSE 64–82; RESP 16–20; TEMP 36.4–36.7; O2SAT 91–92; BMI 20.7
--- NOTE | 2022-05-19 | ECHO_ITS ---
Patient Info Name: Fern Grier Age: 86 years : 1935 Gender: Female Ht: 63 in Wt: 117 lbs BSA: 1.54 m2 HR: 64 bpm BP: 140 / 80 mmHg Heart Rhythm: Sinus Rhythm Technical Quality: Good Exam Date: 05/19/2022 1:01 PM Exam Location: [facility] Patient Status: Inpatient Admit Date: 05/17/2022 Staff Ordering Physician: Mala López MD Work Checker: Nydia Harris RDCS Attending Provider: Cheyenne Martini DO Exam Type: CA echo doppler color flow Study Info Indications J81.1 - Chronic pulmonary edema Complete two-dimensional, color flow and Doppler transthoracic echocardiogram is performed. Summary 1. Technically difficult study with several foreshortened views. 2. Left ventricular chamber dimension is normal. 3. Left ventricular systolic function is severely reduced, estimated at 30%. 4. There is moderately increased left ventricular wall thickness. 5. Left ventricular septal wall motion is abnormal with septal motion related to bundle branch block. 6. The left ventricular diastolic function is grade I diastolic dysfunction. 7. There is mild mitral valve regurgitation. 8. There is moderate circumferential pericardial effusion. Fibrinous material within the pericardial space. Mild right atrial free wall invagination consistent with increased intrapericardial pressures but without evidence for clear tamponade physiology by mitral or tricuspid inflow velocities. 9. Left pleural effusion. Left Ventricle Technically difficult study with several foreshortened views. Left ventricular chamber dimension is normal. Left ventricular systolic function is severely reduced, estimated at 30%. There is moderately increased left ventricular wall thickness. Left ventricular septal wall motion is abnormal with septal motion related to bundle branch block. The left ventricular diastolic function is grade I diastolic dysfunction. Right Ventricle Right ventricular chamber dimension is normal. Right ventricular systolic function is normal. Left Atria Left atrial chamber dimension is normal. Right Atria Right atrial chamber dimension is normal. Aortic Valve The aortic valve is not well visualized. There is no aortic valve stenosis. There is no aortic valve regurgitation. There is mild aortic valve calcification. Pulmonic Valve The pulmonic valve is not well visualized. Mitral Valve The mitral valve has thickened leaflets. There is mild mitral valve regurgitation. The mitral valve annulus is moderately calcified. Tricuspid Valve The tricuspid valve leaflets are normal. There is trace tricuspid valve regurgitation. Unable to estimate PA systolic pressure due to poor spectral resolution of tricuspid regurgitant jet velocity. Pericardium/Pleural The pericardium appears normal. There is moderate circumferential pericardial effusion. Fibrinous material within the pericardial space. Mild right atrial free wall invagination consistent with increased intrapericardial pressures but without evidence for clear tamponade physiology by mitral or tricuspid inflow velocities. Left pleural effusion. Inferior Vena Cava Normal inferior vena cava with >50% collapse upon inspiration consistent with normal right atrial pressure, 5 mmHg. Aorta The aortic root size at the sinus of Valsalva is normal. There is mild aortic atherosclerosis. Left Ventricular Outflow Tract Name
[2022-05-19] MEDS: NITROGLYCERIN OINTMENT 1 INCH DOSE TRANSDERM ×3 (01:14→17:24)
[2022-05-19] MEDS: LEVOTHYROXINE SODIUM 88 MCG TABLET PO ×2 (06:35)
[2022-05-19 06:54] LABS: Magnesium 1.9 mg/dL (1.6-2.3)
--- NOTE | 2022-05-19 09:39 | PM.IMPN ---
Progress Note: A&P Assessment and Plan (1) Hypertensive emergency: Code(s): I16.1 - Hypertensive emergency Status: Acute Assessment and Plan: Resolve BP is 140/80 today. (2) Acute respiratory failure with hypoxia: Code(s): J96.01 - Acute respiratory failure with hypoxia Status: Acute Assessment and Plan: Patient has improved symptomatically. repeat chest x-ray with unchanged opacities in the right lower lung and increased opacities in the left lung may suggest pneumonia. Recent pneumonia workup including procalcitonin, urine Legionella, mycoplasma and Pneumocystis pneumonia serologies. Will order this plain CT of the chest for further delineation of the opacities. (3) CHF (congestive heart failure): Qualifiers: Heart failure chronicity: acute on chronic Heart failure type: combined systolic and diastolic Qualified Code(s): I50.43 - Acute on chronic combined systolic (congestive) and diastolic (congestive) heart failure Code(s): I50.9 - Heart failure, unspecified Status: Acute Assessment and Plan: Improving with diuresis. Adequate diuresis overnight with 1.2 L. (4) Pulmonary edema cardiac cause: Code(s): I50.1 - Left ventricular failure, unspecified Status: Acute Assessment and Plan: will obtain an echocardiogram given presentation with flash pulmonary edema. Assess LV function. Plan This is an 86- year old female admitted initially with an hypertensive emergency resulting in pulmonary edema/CHF exacerbation. The patient's symptoms have improved with diuresis and supplemental oxygen. She had an appropriate response to IV Lasix, producing close to 1.2 L of urine overnight. Patient's troponins are elevated likely due to type 2 infarct : n0.04->0.22->0.20 We will continue with diuresis Lasix 40 mg IV b.i.d.. Will monitor strict I&O's and daily weights. We will continue to trend troponins. Continue to l wean oxygen as tolerated. Will also continue the patient on Entresto .. Will repeat electrolyte panel in a.m. given aggressive diuresis. Patient received nitropaste in the ER. We will continue Coreg to 12.5 mg p.o. b.i.d.. p.r.n. BP medication was. On 05/18/2022. Blood pressure fluctuated between 104/56-140/80. . Time Spent With Patient Time with patient: 15 - 25 minutes Subjective Date/time seen: 05/19/22 09:39 Interval history: S: Patient was seen and examined at the bedside. She reported no complaints. Appetite is good and patient ate her breakfast. Review of Systems Review of Systems: All systems reviewed & are unremarkable except as noted in HPI and below Constitutional: Constitutional: Reports as per HPI, Denies chills, Denies fever(s) and Denies poor appetite Eyes: Eyes: Reports as per HPI and Denies blurry vision ENT: Reports system reviewed and no additional complaints, except as documented, Denies dysphagia and Denies epistaxis Cardiovascular: Cardiovascular: Reports as per HPI, Denies chest pain and Denies palpitations Respiratory: Respiratory: Reports as per HPI, Denies cough and Denies dyspnea Gastrointestinal: Gastrointestinal: Reports as per HPI, Denies diarrhea, Denies nausea and Denies vomiting Genitourinary: Genitourinary: Reports no additional female genitourinary complaints, Reports as per HPI and Denies hematuria Musculoskeletal: Musculoskeletal: Reports no additional musculoskeletal complaints and Denies back pain Integumentary/Breasts: Skin/Breast: Reports system reviewed and no additional complaints, except as docu and Denies rash Neurologic: Reports system reviewed and no additional complaints, except as documented, Denies Abnormal speech present and Denies headache(s) Psychiatric: Psychiatric: Reports no additional psychiatric complaints, Denies anxiety, Denies confusion and Denies depression Exam Narrative: Weight 56.1 kg BMI 21.9 Const: General: no acute distress Other: No
[2022-05-19 10:41] LABS: Hematocrit 34.1 % (37.0-47.0); Hemoglobin 10.7 g/dL (12.0-15.0); Mean Corpuscular HGB Conc 31.4 g/dl (32-36); Mean Corpuscular Hemoglobin 36.9 pg (26-34); Mean Corpuscular Volume 117.6 fl (80-100); Mean Platelet Volume 11.1 fl (7.4-10.4); Platelet Count Result 104 k/mm3 (150-375); Red Cell Distribution Width 16.6 % (11.5-14.5); White Blood Count 3.7 K/mm3 (4.5-10.0)
[2022-05-19 10:51] LABS: Anion Gap 8 mmol/L (8-16); Blood Urea Nitrogen 22 mg/dL (7-17); Calcium 7.6 mg/dL (8.4-10.2); Carbon Dioxide 22 mmol/L (22-30); Chloride 108 mmol/L (98-107); Estimated CRCL calculation 18 ml/min; Estimated Glomerular Filt Rate 28; Glucose 83 mg/dL (65-110); Potassium 3.5 mmol/L (3.4-5.0); Sodium 138 mmol/L (137-145)
[2022-05-19] MEDS: ACIDOPHILUS/BULGARICUS CHEWABLE TABLET 1 TABLET PO (12:14)
[2022-05-19] MEDS: ASPIRIN 81 MG CHEWABLE TABLET PO (12:14)
[2022-05-19] MEDS: SACUBITRIL/VALSARTAN 24-26 MG TABLET 1 TAB PO ×2 (12:16→20:42)
[2022-05-19] MEDS: POTASSIUM CHLORIDE 20 MEQ TABLET.ER PO (12:17)
[2022-05-19] MEDS: carvediloL 12.5 MG TABLET PO ×2 (12:17→20:42)
[2022-05-19] MEDS: ENOXAPARIN 30 MG/0.3 ML SYRINGE SUB-Q (12:17)
[2022-05-19] MEDS: FAMOTIDINE 20 MG TABLET PO ×2 (12:17→20:42)
[2022-05-19] MEDS: FUROSEMIDE INJ 40 MG/4 ML VIAL IV PUSH ×2 (12:19→20:43)
[2022-05-19] MEDS: CHOLESTYRAMINE LIGHT 4 GM POWD.PACK PO ×2 (12:19→17:22)
[2022-05-19 12:28] LABS: Procalcitonin 0.2 ng/mL
[2022-05-19] MEDS: ALPRAZolam (*CRX) 0.5 MG TABLET PO ×2 (12:35→17:22)
[2022-05-19] MEDS: ESCITALOPRAM OXALATE 10 MG TABLET PO (13:24)
[2022-05-20] VITALS (12 sets, daily range): BP systolic 116–137; BP diastolic 55–74; PULSE 63–72; RESP 16–18; TEMP 36.4–37.2; O2SAT 90–96
[2022-05-20] MEDS: NITROGLYCERIN OINTMENT 1 INCH DOSE TRANSDERM ×2 (00:46→06:53)
[2022-05-20 07:03] LABS: Hematocrit 32.2 % (37.0-47.0); Hemoglobin 10.2 g/dL (12.0-15.0); Immature Platelet Fraction Pct 5.7 % (0.9-11.2); Mean Corpuscular HGB Conc 31.7 g/dl (32-36); Mean Corpuscular Hemoglobin 37.2 pg (26-34); Mean Corpuscular Volume 117.5 fl (80-100); Mean Platelet Volume 10.6 fl (7.4-10.4); Platelet Count Result 106 k/mm3 (150-375); Red Blood Count 2.74 M/mm3 (4.2-5.4); White Blood Count 3.8 K/mm3 (4.5-10.0)
[2022-05-20] MEDS: CHOLESTYRAMINE LIGHT 4 GM POWD.PACK PO ×2 (09:12→17:00)
[2022-05-20] MEDS: ENOXAPARIN 30 MG/0.3 ML SYRINGE SUB-Q (09:14)
[2022-05-20] MEDS: ASPIRIN 81 MG CHEWABLE TABLET PO (09:17)
[2022-05-20] MEDS: ACIDOPHILUS/BULGARICUS CHEWABLE TABLET 1 TABLET PO (09:18)
[2022-05-20] MEDS: carvediloL 12.5 MG TABLET PO ×2 (09:18→21:20)
[2022-05-20] MEDS: ALPRAZolam (*CRX) 0.5 MG TABLET PO ×3 (09:18→17:31)
[2022-05-20] MEDS: POTASSIUM CHLORIDE 20 MEQ TABLET.ER PO (09:20)
[2022-05-20] MEDS: SACUBITRIL/VALSARTAN 24-26 MG TABLET 1 TAB PO ×2 (09:20→21:20)
[2022-05-20] MEDS: ESCITALOPRAM OXALATE 10 MG TABLET PO (09:20)
[2022-05-20] MEDS: FUROSEMIDE INJ 40 MG/4 ML VIAL IV PUSH ×2 (09:21→21:49)
[2022-05-20] MEDS: FAMOTIDINE 20 MG TABLET PO ×2 (09:21→21:20)
--- NOTE | 2022-05-20 13:47 | PM.IMPN ---
Progress Note: A&P Assessment and Plan (1) Hypertensive emergency: Code(s): I16.1 - Hypertensive emergency Status: Acute Assessment and Plan: Resolved (2) Acute respiratory failure with hypoxia: Code(s): J96.01 - Acute respiratory failure with hypoxia Status: Acute Assessment and Plan: Improving, follow-up outpatient pulmonary nodules (3) CHF (congestive heart failure): Qualifiers: Heart failure chronicity: acute on chronic Heart failure type: combined systolic and diastolic Qualified Code(s): I50.43 - Acute on chronic combined systolic (congestive) and diastolic (congestive) heart failure Code(s): I50.9 - Heart failure, unspecified Status: Acute Assessment and Plan: Improving, continue diuresis (4) Pulmonary edema cardiac cause: Code(s): I50.1 - Left ventricular failure, unspecified Status: Acute Assessment and Plan: Echo showed an EF of 30%, pericardial effusion, grade 1 diastolic dysfunction Cardiology consult pending (5) Hypothyroidism: Code(s): E03.9 - Hypothyroidism, unspecified Status: Acute Assessment and Plan: Continue levothyroxine, check TSH Plan DVT prophylaxis with Lovenox GI prophylaxis with Pepcid Code status DNR . Subjective Date/time seen: 05/20/22 13:47 Interval history: No overnight events noted. No chest pain or shortness of breath. No nausea, vomiting or diarrhea. No fevers or chills. Satting 91% on 2 L nasal cannula Review of Systems Review of Systems: 12 point review of systems was assessed and was negative except as noted in the HPI Exam Narrative: General: No acute distress, alert and oriented per baseline HEENT: Atraumatic, normocephalic, mucous membranes moist CV: Regular rate and rhythm, S1, S2 Lungs: Diminished throughout Abdomen: Soft, nontender, nondistended Extremities: Normal to inspection Skin: No rashes noted, no lesions or wounds seen Psych: Euthymic, normal affect Objective Data Vital Signs Vital Signs: Vital Signs - 24 hr 05/19/22 15:11 05/19/22 20:42 05/19/22 22:00 Temperature 98.1 F 98.1 F Pulse Rate 70 82 68 Respiratory Rate 18 20 Blood Pressure 141/83 H 123/65 Pulse Oximetry 91 92 Oxygen Delivery Oxygen Flow Rate 05/19/22 20:00 05/19/22 20:00 05/20/22 00:00 Temperature Pulse Rate 71 66 Respiratory Rate Blood Pressure Pulse Oximetry 92 Oxygen Delivery Nasal Cannula Oxygen Flow Rate 2 05/20/22 04:00 05/20/22 05:45 05/20/22 04:00 Temperature 97.6 F Pulse Rate 67 64 65 Respiratory Rate 16 Blood Pressure 137/74 Pulse Oximetry 96 Oxygen Delivery Oxygen Flow Rate 05/20/22 09:18 05/20/22 08:00 05/20/22 08:00 Temperature Pulse Rate 69 72 Respiratory Rate Blood Pressure Pulse Oximetry 91 Oxygen Delivery Nasal Cannula Oxygen Flow Rate 2 05/20/22 12:00 Temperature Pulse Rate 68 Respiratory Rate Blood Pressure Pulse Oximetry Oxygen Delivery Oxygen Flow Rate Intake/Output Intake/Output: Intake & Output 05/17/22 05/18/22 05/19/22 05/20/22 23:59 23:59 23:59 23:59 Intake Total 510 1280 560 Output Total 1900 4235 825 [facility] -[phone] Meds/Results Medications: Active Medications Generic Name Dose Route Start Last Admin Trade Name Freq PRN Reason Stop Dose Admin Acetaminophen 650 mg 05/18/22 03:27 Acetaminophen 325 Mg Tablet PO Q6H PRN Pain (Scale Score 1-3) Alprazolam 0.5 mg 05/18/22 09:00 05/20/22 12:22 Alprazolam (*Crx) 0.5 Mg Tablet PO 0.5 mg TID BG Administration Aspirin 81 mg 05/18/22 08:00 05/20/22 09:17 Aspirin 81 Mg Chewable Tablet PO 81 mg DAILY@0800 BG Administration Carvedilol 12.5 mg 05/18/22 09:00 05/20/22 09:18 Carvedilol 12.5 Mg Tablet PO 12.5 mg Q12HR BG Administration Cholestyramine Resin 4 gm 05/18/22 09:00 05/20/22 09:12 Cholestyramine
[2022-05-20] MEDS: ACETAMINOPHEN 325 MG TABLET 650 MG PO (21:18)
[2022-05-21] VITALS (15 sets, daily range): BP systolic 91–148; BP diastolic 48–68; PULSE 56–72; RESP 16–20; TEMP 36–36.8; O2SAT 92–96
[2022-05-21] MEDS: NITROGLYCERIN OINTMENT 1 INCH DOSE TRANSDERM ×3 (02:46→17:22)
[2022-05-21] MEDS: LEVOTHYROXINE SODIUM 88 MCG TABLET PO (06:14)
[2022-05-21 07:51] LABS: Basophils Percent Auto 0.4 % (0.2-1.2); Hematocrit 32.1 % (37.0-47.0); Hemoglobin 10.1 g/dL (12.0-15.0); Lymphocytes Absolute Auto 1.31 K/mm3 (0.9-3.2); Lymphocytes Percent Auto 49.6 % (18.3-44.2); Mean Corpuscular HGB Conc 31.5 g/dl (32-36); Mean Corpuscular Hemoglobin 37.1 pg (26-34); Mean Platelet Volume 10.7 fl (7.4-10.4); Monocytes Absolute Auto 0.2 K/mm3 (0.1-0.6); Monocytes Percent Auto 6.8 % (2.6-8.5); Neutrophils Absolute Auto 1.1 K/mm3 (1.3-6.7); Neutrophils Percent Auto 43.2 % (45.5-73.1); Platelet Count Result 100 k/mm3 (150-375); Red Blood Count 2.72 M/mm3 (4.2-5.4); White Blood Count 2.6 K/mm3 (4.5-10.0)
[2022-05-21 08:05] LABS: Alanine Aminotransferase 13 U/L (6-35); Albumin Level 3.6 g/dL (3.5-5.1); Alkaline Phosphatase 51 U/L (38-126); Anion Gap 4 mmol/L (8-16); Aspartate Amino Transferase 34 U/L (14-36); Bilirubin,Total 0.4 mg/dL (0.2-1.3); Blood Urea Nitrogen 31 mg/dL (7-17); Calcium 7.5 mg/dL (8.4-10.2); Carbon Dioxide 28 mmol/L (22-30); Chloride 102 mmol/L (98-107); Estimated CRCL calculation 15 ml/min; Estimated Glomerular Filt Rate 25; Glucose 81 mg/dL (65-110); Potassium 3.3 mmol/L (3.4-5.0); Sodium 134 mmol/L (137-145)
[2022-05-21] MEDS: carvediloL 12.5 MG TABLET PO ×2 (08:25→21:35)
[2022-05-21] MEDS: ASPIRIN 81 MG CHEWABLE TABLET PO (08:25)
[2022-05-21] MEDS: ENOXAPARIN 30 MG/0.3 ML SYRINGE SUB-Q (08:25)
[2022-05-21] MEDS: ALPRAZolam (*CRX) 0.5 MG TABLET PO (08:25)
[2022-05-21] MEDS: ACIDOPHILUS/BULGARICUS CHEWABLE TABLET 1 TABLET PO (08:25)
[2022-05-21] MEDS: FAMOTIDINE 20 MG TABLET PO ×2 (08:26→21:36)
[2022-05-21] MEDS: POTASSIUM CHLORIDE 20 MEQ TABLET.ER PO (08:26)
[2022-05-21] MEDS: ESCITALOPRAM OXALATE 10 MG TABLET PO (08:26)
[2022-05-21] MEDS: SACUBITRIL/VALSARTAN 24-26 MG TABLET 1 TAB PO ×2 (08:26→21:34)
[2022-05-21] MEDS: FUROSEMIDE INJ 40 MG/4 ML VIAL IV PUSH ×2 (08:26→21:33)
[2022-05-21] MEDS: CHOLESTYRAMINE LIGHT 4 GM POWD.PACK PO ×2 (10:35→17:22)
[2022-05-21 11:17] LABS: Glucose Point of Care 113 mg/dl (65-105)
--- NOTE | 2022-05-21 11:27 | PCPTNOTE ---
The patient treatment was not able to be completed. When I entered room for PT treatment patient was up in chair and appeared to be sleeping. Patient did not respond to name or tactile stim and remained unresponsive. RN called to room and I transferred patient from chair to bed total assist. RN assessed patient and Rapid Response called. PT held for today due to change in medical status. Will continue to follow and resume when patient is able to participate.
--- NOTE | 2022-05-21 11:30 | PC.NURSE ---
pt was asleep in chair and was not arousable verbal, touch, or sternal rub. pt was transferred to bed, vital signs were taken, and a rapid response was called due to her unresponsiveness. MD aware and arrived to RR call and new orders were given; RN was instructed to hold noon meds and discontinue alprazolam. Will continue to monitor.
[2022-05-21 11:32] LABS: Alveolar/Arterial O2 Gradient 47.4 mmHg; Base Excess ABG -1.9 mEq/l (+/-2.0); Fractional Inspired Oxygen 24 %; HCO3 ABG 23.2 mEq/l (22.0-26.0); Oxygen Content ABG 15.4 %vol (16.0-22.0); Oxygen Saturation ABG 94.8 % (95.0-100.0); Oxyhemoglobin 93.9 % THb (90.0-100.0); PCO2 ABG 40.8 mmHg (35.0-45.0); PO2 ABG 75.2 mmHg (80.0-100.0); PO2 FiO2 Ratio Arterial Blood 3.13 %; Total Hemoglobin 11.6 g/dL (12.0-18.0); pH ABG 7.373 (7.350-7.450)
[2022-05-21 11:33] LABS: Device NASAL CANNULA; Modified Allen's Test Pass; Site Drawn RIGHT RADIAL
--- NOTE | 2022-05-21 13:11 | PM.CNCAR ---
Assessment and Plan Assessment and plan (1) Acute on chronic systolic and diastolic heart failure, NYHA class 1: Code(s): I50.43 - Acute on chronic combined systolic (congestive) and diastolic (congestive) heart failure Status: Acute Assessment and Plan: Monitor renal function electrolytes closely. Accurate input and output, daily weight. Monitor BP closely may need to reduce to 40 mg daily particularly as her renal function has worsened since admission. May need to reduce carvedilol in our hold Entresto if hypotension more persistent. Continue medical therapy as she tolerates. Given LV dysfunction patient main is at high risk for life-threatening ventricular arrhythmias. She is noted to be a DNR. Continue conservative medical management. Patient has multiple serious comorbidities, prognosis guarded. Continue DVT prophylaxis, PT OT as tolerated. (2) Severe uncontrolled hypertension: Code(s): I10 - Essential (primary) hypertension Status: Acute Assessment and Plan: BP much better although relatively hypotensive earlier this morning. Patient had been maintained on nitroglycerin paste since admission from the ER which I have discontinued. Monitor BP closely. Continue Entresto, carvedilol which she did receive this morning. (3) Acute respiratory failure with hypoxia: Code(s): J96.01 - Acute respiratory failure with hypoxia Status: Acute Assessment and Plan: Improved, she is not hypoxic on 1 L nasal cannula. She appears to be fairly euvolemic at this time. (4) Elevated troponin: Code(s): R77.8 - Other specified abnormalities of plasma proteins Status: Acute Assessment and Plan: Not consistent with acute coronary syndrome and/or plaque rupture. No anginal symptoms at presentation. She may have underlying CAD, however, given her advanced age, comorbidities and DNR status conservative medical management has been pursued. (5) Acute kidney injury: Code(s): N17.9 - Acute kidney failure, unspecified Status: Acute Assessment and Plan: Renal function has deteriorated since admission and IV diuresis. Reduce Lasix to 40 mg daily. Monitor renal function and electrolytes closely. Accurate input and output. (6) Altered mental status: Code(s): R41.82 - Altered mental status, unspecified Status: Acute Assessment and Plan: Etiology unclear most likely secondary to anxiolytics. I would discontinue alprazolam and avoid sedating medications if at all possible. (7) Pericardial effusion: Code(s): I31.3 - Pericardial effusion (noninflammatory) Status: Acute Assessment and Plan: Moderate, chronic no change no tamponade physiology. History of Present Illness History of Present Illness Consult date/time: Date of service: 05/21/22 13:11 Requesting physician: Isi Dang DO Consult reason: congestive heart failure Reason For Visit: CHF,elevated troponin,acute hypoxic resp failure Narrative: Patient is a complicated 86-year-old female with a past medical history significant for moderate to severe LV systolic dysfunction history of heart failure with reduced ejection fraction, hypertension, hypothyroidism, history of chronic kidney disease who was brought to the ER via EMS from [facility] due to worsening shortness of breath. History is obtained electronic medical record as patient is unable to answer questions or provide history due to altered mental status. Per electronic medical record reports patient complained of progressive shortness of breath for some time particular the previous 3 days worse prior to admission. She was found to be hypoxic with O2 saturations of 86% on room air patient denies chest pain, recent illnesses, fevers or chills, lower extremity edema or palpitations. Patient presented with hypertensive urgency with systolic blood pressures in the 230s initially for which he w
--- NOTE | 2022-05-21 16:06 | PM.IMPN ---
Progress Note: A&P Assessment and Plan (1) Hypertensive emergency: Code(s): I16.1 - Hypertensive emergency Status: Acute Assessment and Plan: Resolved (2) Acute respiratory failure with hypoxia: Code(s): J96.01 - Acute respiratory failure with hypoxia Status: Acute Assessment and Plan: Improving, follow-up outpatient pulmonary nodules (3) CHF (congestive heart failure): Qualifiers: Heart failure chronicity: acute on chronic Heart failure type: combined systolic and diastolic Qualified Code(s): I50.43 - Acute on chronic combined systolic (congestive) and diastolic (congestive) heart failure Code(s): I50.9 - Heart failure, unspecified Status: Acute Assessment and Plan: Improving, continue diuresis (4) Pulmonary edema cardiac cause: Code(s): I50.1 - Left ventricular failure, unspecified Status: Acute Assessment and Plan: Echo showed an EF of 30%, pericardial effusion, grade 1 diastolic dysfunction Cardiology consult pending (5) Hypothyroidism: Code(s): E03.9 - Hypothyroidism, unspecified Status: Acute Assessment and Plan: Continue levothyroxine, check TSH Plan Brief episode of unresponsiveness thought to be secondary to Xanax which was ordered scheduled as opposed to p.r.n., this was discontinued for now, can restart as a p.r.n. medication if patient requests it DVT prophylaxis with Lovenox GI prophylaxis with Pepcid Code status DNR Subjective Date/time seen: 05/21/22 16:06 Interval history: No chest pain or shortness of breath. No nausea, vomiting or diarrhea. No fevers or chills. Rapid response called early this morning as patient was essentially unresponsive. Vital signs were completely stable. Stat head CT was within normal limits. ABG was benign. Patient had been receiving her Xanax scheduled as opposed to p.r.n. this was thought to be the etiology. Satting 92% on 1 L nasal cannula. Review of Systems Review of Systems: 12 point review of systems was assessed and was negative except as noted in the HPI Exam Narrative: General: No acute distress, alert and oriented per baseline, previously unresponsive, resolved HEENT: Atraumatic, normocephalic, mucous membranes moist CV: Regular rate and rhythm, S1, S2, positive murmur Lungs: Diminished throughout Abdomen: Soft, nontender, nondistended Extremities: Normal to inspection Skin: No rashes noted, no lesions or wounds seen Objective Data Vital Signs Vital Signs: Vital Signs - 24 hr 05/20/22 21:20 05/20/22 20:00 05/21/22 00:00 Temperature Pulse Rate 72 70 61 Respiratory Rate Blood Pressure Pulse Oximetry Oxygen Delivery Oxygen Flow Rate 05/20/22 22:00 05/20/22 20:00 05/21/22 04:00 Temperature 98.9 F Pulse Rate 72 57 L Respiratory Rate 18 Blood Pressure 135/71 Pulse Oximetry 90 90 Oxygen Delivery Nasal Cannula Oxygen Flow Rate 1 05/21/22 06:00 05/21/22 08:25 05/21/22 11:38 Temperature 96.9 F L 97.3 F L Pulse Rate 58 L 62 56 L Respiratory Rate 16 Blood Pressure 138/66 95/48 L Pulse Oximetry 95 92 Oxygen Delivery Oxygen Flow Rate 05/21/22 12:05 05/21/22 08:25 05/21/22 13:34 Temperature 97.7 F 96.8 F L Pulse Rate 63 57 L Respiratory Rate 20 Blood Pressure 100/59 L 91/56 L Pulse Oximetry 92 96 92 Oxygen Delivery Nasal Cannula Nasal Cannula Oxygen Flow Rate 1 1 05/21/22 14:07 Temperature 98.1 F Pulse Rate 64 Respiratory Rate 18 Blood Pressure 148/61 H Pulse Oximetry 94 Oxygen Delivery Oxygen Flow Rate Intake/Output Intake/Output: Intake & Output 05/18/22 05/19/22 05/20/22 05/21/22 23:59 23:59 23:59 23:59 Intake Total 510 1280 1350 540 Output Total 1900 9675 1375 650 [facility] -[phone] Meds/Results Medications: Active Medications Generic Name Dose Route Start Last Admin Trade Name Freq PRN Reason Stop Dose Admin
[2022-05-22] VITALS (15 sets, daily range): BP systolic 124–177; BP diastolic 65–85; PULSE 57–70; RESP 16–18; TEMP 36.4–36.6; O2SAT 87–95
[2022-05-22] MEDS: NITROGLYCERIN OINTMENT 1 INCH DOSE TRANSDERM ×2 (01:33→06:06)
[2022-05-22] MEDS: LEVOTHYROXINE SODIUM 88 MCG TABLET PO (06:06)
[2022-05-22 07:28] LABS: Basophils Percent Auto 0.2 % (0.2-1.2); Hematocrit 32.3 % (37.0-47.0); Hemoglobin 10.1 g/dL (12.0-15.0); Immature Granulocyte Absolute 0.02 K/mm3 (0.00-0.031); Immature Granulocyte Percent A 0.5 % (0-0.5); Immature Platelet Fraction Pct 5.1 % (0.9-11.2); Lymphocytes Absolute Auto 1.54 K/mm3 (0.9-3.2); Lymphocytes Percent Auto 38.4 % (18.3-44.2); Mean Corpuscular HGB Conc 31.3 g/dl (32-36); Mean Corpuscular Hemoglobin 36.5 pg (26-34); Mean Corpuscular Volume 116.6 fl (80-100); Mean Platelet Volume 10.1 fl (7.4-10.4); Monocytes Absolute Auto 0.2 K/mm3 (0.1-0.6); Neutrophils Absolute Auto 2.2 K/mm3 (1.3-6.7); Neutrophils Percent Auto 54.9 % (45.5-73.1); Platelet Count Result 109 k/mm3 (150-375); Red Blood Count 2.77 M/mm3 (4.2-5.4); Red Cell Distribution Width 15.5 % (11.5-14.5)
[2022-05-22 07:36] LABS: Alanine Aminotransferase 13 U/L (6-35); Albumin Level 3.7 g/dL (3.5-5.1); Alkaline Phosphatase 54 U/L (38-126); Anion Gap 6 mmol/L (8-16); Aspartate Amino Transferase 36 U/L (14-36); Bilirubin,Total 0.4 mg/dL (0.2-1.3); Blood Urea Nitrogen 33 mg/dL (7-17); Calcium 7.6 mg/dL (8.4-10.2); Carbon Dioxide 27 mmol/L (22-30); Chloride 100 mmol/L (98-107); Estimated CRCL calculation 16 ml/min; Estimated Glomerular Filt Rate 27; Glucose 86 mg/dL (65-110); Magnesium 1.9 mg/dL (1.6-2.3); Potassium 3.5 mmol/L (3.4-5.0); Sodium 133 mmol/L (137-145)
[2022-05-22 08:20] LABS: Anisocytosis 1+ (NORMAL); Atypical Lymphocytes Present; Macrocytosis 1+ (NORMAL); Schistocytes None Seen (NORMAL)
--- NOTE | 2022-05-22 08:55 | PM.PNCARD ---
Progress Note: A&P Assessment and Plan (1) Acute on chronic systolic and diastolic heart failure, NYHA class 1: Code(s): I50.43 - Acute on chronic combined systolic (congestive) and diastolic (congestive) heart failure Status: Acute Assessment and Plan: LVSF with EF 30%, grade I diastolic dysfunction Conservative medical management GDMT with everardo Wood. BP tolerating. Could consider adding SGLT2 inhibitor, MRA as outpatient Monitor renal function and electrolytes closely. Daily weights Strict I&O Cardiology will sign off please do not hesitate to contact us with any questions. (2) Severe uncontrolled hypertension: Code(s): I10 - Essential (primary) hypertension Status: Acute Assessment and Plan: Much improved since admission (3) Acute respiratory failure with hypoxia: Code(s): J96.01 - Acute respiratory failure with hypoxia Status: Acute Assessment and Plan: Improved, she is not hypoxic on 1 L nasal cannula. She appears to be fairly euvolemic at this time. (4) Elevated troponin: Code(s): R77.8 - Other specified abnormalities of plasma proteins Status: Acute Assessment and Plan: Not consistent with acute coronary syndrome and/or plaque rupture. No anginal symptoms at presentation. She may have underlying CAD, however, given her advanced age, comorbidities and DNR status conservative medical management has been pursued. (5) Acute kidney injury: Code(s): N17.9 - Acute kidney failure, unspecified Status: Acute Assessment and Plan: Renal function has deteriorated since admission and IV diuresis. Reduce Lasix to 20 mg daily. Monitor renal function and electrolytes closely. Accurate input and output. (6) Altered mental status: Code(s): R41.82 - Altered mental status, unspecified Status: Acute Assessment and Plan: Etiology unclear most likely secondary to anxiolytics. (7) Pericardial effusion: Code(s): I31.3 - Pericardial effusion (noninflammatory) Status: Acute Assessment and Plan: Moderate, chronic no change no tamponade physiology. Subjective Date/time seen: 05/22/22 08:55 Cardiology follow up for cardiomyopathy She's feeling okay this morning. No shortness of breath. Complaining of some pain in her thigh. Review of Systems Review of Systems: All systems reviewed & are unremarkable except as noted in HPI and below Constitutional: Constitutional: Reports as per HPI and Reports no additional constitutional complaints Eyes: Eyes: Reports as per HPI and Reports no additional eye complaints ENT: Reports system reviewed and no additional complaints, except as documented and Reports as per HPI Cardiovascular: Cardiovascular: Reports as per HPI and Reports no additional cardiovascular complaints Respiratory: Respiratory: Reports as per HPI and Reports no additional respiratory complaints Gastrointestinal: Gastrointestinal: Reports as per HPI and Reports no additional gastrointestinal complaints Genitourinary: Genitourinary: Reports as per HPI Musculoskeletal: Musculoskeletal: Reports no additional musculoskeletal complaints and Reports as per HPI Integumentary/Breasts: Skin/Breast: Reports system reviewed and no additional complaints, except as docu and Reports as per HPI Neurologic: Reports system reviewed and no additional complaints, except as documented and Reports as per HPI Psychiatric: Psychiatric: Reports no additional psychiatric complaints and Reports as per HPI Endocrine: Endocrine: Reports no additional endocrine complaints and Reports as per HPI Hematologic/Lymphatic: Hematologic/Lymphatic: Reports no additional hematologic/lymphatic complaints and Reports as per HPI Allergic/Immunologic: Allergic/Immunologic: Reports no additional allergic/immunologic complaints and Reports as per HPI Exam Const: General: comfortable, no acute distress, alert and a
--- NOTE | 2022-05-22 09:00 | PM.IMPN ---
Progress Note: A&P Assessment and Plan (1) Pulmonary edema cardiac cause: Code(s): I50.1 - Left ventricular failure, unspecified Status: Acute Assessment and Plan: Echo showed an EF of 30%, pericardial effusion, grade 1 diastolic dysfunction Appreciate cardiology consultation (2) Acute respiratory failure with hypoxia: Code(s): J96.01 - Acute respiratory failure with hypoxia Status: Acute Assessment and Plan: Improving, follow-up outpatient pulmonary nodules Home O2 eval, repeat chest x-ray (3) Hypothyroidism: Code(s): E03.9 - Hypothyroidism, unspecified Status: Acute Assessment and Plan: TSH came back elevated at 17, will increase dose of levothyroxine from 88 to 100 mcg, recheck in 4-6 weeks outpatient (4) CHF (congestive heart failure): Qualifiers: Heart failure chronicity: acute on chronic Heart failure type: combined systolic and diastolic Qualified Code(s): I50.43 - Acute on chronic combined systolic (congestive) and diastolic (congestive) heart failure Code(s): I50.9 - Heart failure, unspecified Status: Acute Assessment and Plan: Improving, transition to oral diuresis (5) Hypertensive emergency: Code(s): I16.1 - Hypertensive emergency Status: Acute Assessment and Plan: Resolved (6) Acute kidney injury: Code(s): N17.9 - Acute kidney failure, unspecified Status: Acute Assessment and Plan: Transition to oral diuresis, improving, anticipate discharge home tomorrow if she can be weaned off oxygen and creatinine continues to improve Plan 05/21: Brief episode of unresponsiveness thought to be secondary to Xanax which was ordered scheduled as opposed to p.r.n., this was discontinued for now, can restart as a p.r.n. medication if patient requests it 05/22: xanax still on hold, would restart QHS prn at d/c if at all DVT prophylaxis with Lovenox GI prophylaxis with Pepcid Code status DNR Subjective Date/time seen: 05/22/22 09:00 Interval history: No chest pain or shortness of breath. No nausea, vomiting or diarrhea. No fevers or chills. 05/21: Rapid response called early this morning as patient was essentially unresponsive. Vital signs were completely stable. Stat head CT was within normal limits. ABG was benign. Patient had been receiving her Xanax scheduled as opposed to p.r.n. this was thought to be the etiology. 05/22: Patient back to baseline cognitively. She states she does take her Xanax regularly at home and often falls asleep for hours or she is difficult to arouse. She states she needs her Xanax, however, and will use it often at home. Review of Systems Review of Systems: 12 point review of systems was assessed and was negative except as noted in the HPI Exam Narrative: General: No acute distress, alert and oriented per baseline HEENT: Atraumatic, normocephalic, mucous membranes moist CV: Regular rate and rhythm, S1, S2, positive murmur Lungs: Diminished throughout Abdomen: Soft, nontender, nondistended Extremities: Normal to inspection Skin: No rashes noted, no lesions or wounds seen Objective Data Vital Signs Vital Signs: Vital Signs - 24 hr 05/21/22 11:38 05/21/22 12:05 05/21/22 13:34 Temperature 97.3 F L 97.7 F 96.8 F L Pulse Rate 56 L 63 57 L Respiratory Rate 20 Blood Pressure 95/48 L 100/59 L 91/56 L Pulse Oximetry 92 92 92 Oxygen Delivery Nasal Cannula Oxygen Flow Rate 1 05/21/22 14:07 05/21/22 12:00 05/21/22 16:00 Temperature 98.1 F Pulse Rate 64 59 L 61 Respiratory Rate 18 Blood Pressure 148/61 H Pulse Oximetry 94 Oxygen Delivery Oxygen Flow Rate 05/21/22 21:35 05/21/22 23:15 05/21/22 19:59 Temperature Pulse Rate 72 72 Respiratory Rate Blood Pressure Pulse Oximetry 95 Oxygen Delivery Nasal Cannula Oxygen Flow Rate 1 05/22/22 00:00 05/21/22 22:00 05/22/22 06:00 Temperature 98
[2022-05-22] MEDS: ASPIRIN 81 MG CHEWABLE TABLET PO (09:14)
[2022-05-22] MEDS: carvediloL 12.5 MG TABLET PO ×2 (09:14→21:18)
[2022-05-22] MEDS: SACUBITRIL/VALSARTAN 24-26 MG TABLET 1 TAB PO ×2 (09:15→21:18)
[2022-05-22] MEDS: POTASSIUM CHLORIDE 20 MEQ TABLET.ER PO (09:15)
[2022-05-22] MEDS: ACIDOPHILUS/BULGARICUS CHEWABLE TABLET 1 TABLET PO (09:15)
[2022-05-22] MEDS: ESCITALOPRAM OXALATE 10 MG TABLET PO (09:15)
[2022-05-22] MEDS: FAMOTIDINE 20 MG TABLET PO ×2 (09:16→21:18)
[2022-05-22] MEDS: ENOXAPARIN 30 MG/0.3 ML SYRINGE SUB-Q (09:16)
[2022-05-22] MEDS: FUROSEMIDE 20 MG TABLET PO (09:59)
--- NOTE | 2022-05-22 13:58 | PCPTNOTE ---
Patient refused treatment this session. Patient states she does not want to do therapy at this time. Patient declined exercise, transfers, and gait. PT will continue to follow per plan of care.
--- NOTE | 2022-05-22 17:15 | HOMEO2EVAL ---
Evaluation was performed at [facility] Home Oxygen Evaluation RC: Home Oxygen (O2) Evaluation Start: 05/22/22 09:01 Freq: ONCE Status: Active Protocol: RPE Activity Type Activity Date Activity User E-sign Co-sign Detail Recorded Client Recorded Date Recorded By Document 05/22/22 09:30 PK [email or web address]_012 05/22/22 17:15 PKH Document 05/22/22 09:35 PKH [email or web address] 05/22/22 17:15 PKH Document 05/22/22 09:40 PK RT_012 05/22/22 17:15 PK Document 05/22/22 09:45 PK [email or web address]_012 05/22/22 17:15 PK Document 05/22/22 10:00 PK [email or web address] 05/22/22 17:15 PK 05/22/22 05/22/22 05/22/22 09:30 09:35 09:40 Home O2 Evaluation [Oxygen] -Test Phase Resting Resting Exercise -Oxygen Delivery Room Air Nasal Cannula Nasal Cannula -Oxygen Flow Rate (L/min) 1 1 [Pulse Oximetry] -Pulse Oximetry (90-100 %) 87 L 90 87 L [Pulse Rate] -Pulse Rate (60-100 beats/min) 63 65 64 [Charges] -Treatment Charges O2 Evaluation - Inpatient 05/22/22 05/22/22 09:45 10:00 Home O2 Evaluation [Oxygen] -Test Phase Exercise Resting -Oxygen Delivery Nasal Cannula Nasal Cannula -Oxygen Flow Rate (L/min) 2 1 [Pulse Oximetry] -Pulse Oximetry (90-100 %) 91 90 [Pulse Rate] -Pulse Rate (60-100 beats/min) 66 66 [Charges] -Treatment Charges
--- NOTE | 2022-05-22 17:23 | PCRCNOTE ---
HOME O2 EVAL COMPLETE. PATIENT REQUIRES 1LPM WITH REST AND 2LPM WITH ACTIVITY. [facility] PROVIDER
[2022-05-23] VITALS (9 sets, daily range): BP systolic 151–176; BP diastolic 74–87; PULSE 58–67; RESP 12–16; TEMP 36.1–37.1; O2SAT 94–97
[2022-05-23] MEDS: LEVOTHYROXINE SODIUM 100 MCG TABLET PO (05:57)
[2022-05-23] MEDS: ASPIRIN 81 MG CHEWABLE TABLET PO (09:19)
[2022-05-23] MEDS: carvediloL 12.5 MG TABLET PO ×2 (09:19→21:16)
[2022-05-23] MEDS: ESCITALOPRAM OXALATE 10 MG TABLET PO (09:19)
[2022-05-23] MEDS: FUROSEMIDE 20 MG TABLET PO (09:19)
[2022-05-23] MEDS: FAMOTIDINE 20 MG TABLET PO ×2 (09:19→21:17)
[2022-05-23] MEDS: ACIDOPHILUS/BULGARICUS CHEWABLE TABLET 1 TABLET PO (09:19)
[2022-05-23] MEDS: SACUBITRIL/VALSARTAN 24-26 MG TABLET 1 TAB PO ×2 (09:19→21:16)
[2022-05-23] MEDS: POTASSIUM CHLORIDE 20 MEQ TABLET.ER PO (09:19)
[2022-05-23] MEDS: ENOXAPARIN 30 MG/0.3 ML SYRINGE SUB-Q (09:20)
[2022-05-23] MEDS: CHOLESTYRAMINE LIGHT 4 GM POWD.PACK PO ×2 (09:22→17:28)
[2022-05-23] MEDS: NITROGLYCERIN OINTMENT 1 INCH DOSE TRANSDERM ×2 (12:05→17:28)
--- NOTE | 2022-05-23 18:46 | PM.IMPN ---
Progress Note: A&P Assessment and Plan (1) Pulmonary edema cardiac cause: Code(s): I50.1 - Left ventricular failure, unspecified Status: Acute Assessment and Plan: Echo showed an EF of 30%, pericardial effusion, grade 1 diastolic dysfunction Appreciate cardiology consultation On Entresto Coreg (2) Acute respiratory failure with hypoxia: Code(s): J96.01 - Acute respiratory failure with hypoxia Status: Acute Assessment and Plan: Improving, follow-up outpatient pulmonary nodules Home O2 eval, repeat chest x-ray (3) Hypothyroidism: Code(s): E03.9 - Hypothyroidism, unspecified Status: Acute Assessment and Plan: TSH came back elevated at 17, will increase dose of levothyroxine from 88 to 100 mcg, recheck in 4-6 weeks outpatient (4) CHF (congestive heart failure): Qualifiers: Heart failure chronicity: acute on chronic Heart failure type: combined systolic and diastolic Qualified Code(s): I50.43 - Acute on chronic combined systolic (congestive) and diastolic (congestive) heart failure Code(s): I50.9 - Heart failure, unspecified Status: Acute Assessment and Plan: Improving, transition to oral diuresis (5) Hypertensive emergency: Code(s): I16.1 - Hypertensive emergency Status: Acute Assessment and Plan: Resolved (6) Acute kidney injury: Code(s): N17.9 - Acute kidney failure, unspecified Status: Acute Assessment and Plan: Transition to oral diuresis, improving, still eating oxygen. Plan 05/21: Brief episode of unresponsiveness thought to be secondary to Xanax which was ordered scheduled as opposed to p.r.n., this was discontinued for now, can restart as a p.r.n. medication if patient requests it 05/22: xanax still on hold, would restart QHS prn at d/c if at all DVT prophylaxis with Lovenox GI prophylaxis with Pepcid Code status DNR Subjective Date/time seen: 05/23/22 18:46 Interval history: No chest pain or shortness of breath. No nausea, vomiting or diarrhea. No fevers or chills. 05/21: Rapid response called early this morning as patient was essentially unresponsive. Vital signs were completely stable. Stat head CT was within normal limits. ABG was benign. Patient had been receiving her Xanax scheduled as opposed to p.r.n. this was thought to be the etiology. 05/22: Patient back to baseline cognitively. She states she does take her Xanax regularly at home and often falls asleep for hours or she is difficult to arouse. She states she needs her Xanax, however, and will use it often at home. 05/23: No overnight events. Feels okay. Denies any abdominal pain or nausea vomiting. Events noted and chart reviewed Review of Systems Review of Systems: All systems reviewed & are unremarkable except as noted in HPI and below Exam Narrative: General: No acute distress, alert and oriented per baseline HEENT: Atraumatic, normocephalic, mucous membranes moist CV: Regular rate and rhythm, S1, S2, positive murmur Lungs: Diminished throughout Abdomen: Soft, nontender, nondistended Extremities: Normal to inspection Skin: No rashes noted, no lesions or wounds seen Objective Data Vital Signs Vital Signs: Vital Signs - 24 hr 05/22/22 21:18 05/22/22 21:18 05/22/22 22:00 Temperature 97.6 F Pulse Rate 64 70 Respiratory Rate 16 Blood Pressure 177/85 H Pulse Oximetry 95 94 Oxygen Delivery Nasal Cannula Oxygen Flow Rate 1 05/22/22 20:00 05/22/22 23:59 05/23/22 04:00 Temperature Pulse Rate 68 57 L 58 L Respiratory Rate Blood Pressure Pulse Oximetry Oxygen Delivery Oxygen Flow Rate 05/23/22 06:00 05/23/22 09:19 05/23/22 08:00 Temperature 97.6 F Pulse Rate 58 L 58 L Respiratory Rate 12 Blood Pressure 163/75 H Pulse Oximetry 96 96 Oxygen Delivery Nasal Cannula Oxygen Flow Rate 1 05/23/22 08:00 05/23/22 12:00 05/23/22 14:
[2022-05-24] VITALS (7 sets, daily range): BP systolic 140–171; BP diastolic 64–87; PULSE 57–66; RESP 12–16; TEMP 36.6–36.9; O2SAT 93–96
[2022-05-24] MEDS: LEVOTHYROXINE SODIUM 100 MCG TABLET PO (06:12)
[2022-05-24] MEDS: NITROGLYCERIN OINTMENT 1 INCH DOSE TRANSDERM ×3 (06:12→11:42)
[2022-05-24] MEDS: ASPIRIN 81 MG CHEWABLE TABLET PO (08:21)
[2022-05-24] MEDS: ACIDOPHILUS/BULGARICUS CHEWABLE TABLET 1 TABLET PO (08:21)
[2022-05-24] MEDS: SACUBITRIL/VALSARTAN 24-26 MG TABLET 1 TAB PO ×2 (08:21→20:51)
[2022-05-24] MEDS: carvediloL 12.5 MG TABLET PO ×2 (08:22→20:50)
[2022-05-24] MEDS: FAMOTIDINE 20 MG TABLET PO ×2 (08:22→20:51)
[2022-05-24] MEDS: ENOXAPARIN 30 MG/0.3 ML SYRINGE SUB-Q (08:22)
[2022-05-24] MEDS: POTASSIUM CHLORIDE 20 MEQ TABLET.ER PO (08:22)
[2022-05-24] MEDS: FUROSEMIDE 20 MG TABLET PO (08:22)
[2022-05-24] MEDS: ESCITALOPRAM OXALATE 10 MG TABLET PO (08:22)
--- NOTE | 2022-05-24 13:25 | PM.IMPN ---
Progress Note: A&P Assessment and Plan (1) Pulmonary edema cardiac cause: Code(s): I50.1 - Left ventricular failure, unspecified Status: Acute Assessment and Plan: Echo showed an EF of 30%, pericardial effusion, grade 1 diastolic dysfunction Appreciate cardiology consultation On Entresto Coreg (2) Acute respiratory failure with hypoxia: Code(s): J96.01 - Acute respiratory failure with hypoxia Status: Acute Assessment and Plan: Improving, follow-up outpatient pulmonary nodules Home O2 eval, repeat chest x-ray (3) Hypothyroidism: Code(s): E03.9 - Hypothyroidism, unspecified Status: Acute Assessment and Plan: TSH came back elevated at 17, increased dose of levothyroxine from 88 to 100 mcg, recheck in 4-6 weeks outpatient (4) CHF (congestive heart failure): Qualifiers: Heart failure chronicity: acute on chronic Heart failure type: combined systolic and diastolic Qualified Code(s): I50.43 - Acute on chronic combined systolic (congestive) and diastolic (congestive) heart failure Code(s): I50.9 - Heart failure, unspecified Status: Acute Assessment and Plan: Improving, transition to oral diuresis (5) Hypertensive emergency: Code(s): I16.1 - Hypertensive emergency Status: Acute Assessment and Plan: Resolved (6) Acute kidney injury: Code(s): N17.9 - Acute kidney failure, unspecified Status: Acute Assessment and Plan: Transition to oral diuresis, improving, still needing oxygen. Plan 05/21: Brief episode of unresponsiveness thought to be secondary to Xanax which was ordered scheduled as opposed to p.r.n., this was discontinued for now, can restart as a p.r.n. medication if patient requests it 05/22: xanax still on hold, would restart QHS prn at d/c if at all # dizziness blood pressure is still elevated. Removed nitro patch. Add amlodipine for blood pressure control DVT prophylaxis with Lovenox GI prophylaxis with Pepcid Code status DNR Subjective Date/time seen: 05/24/22 13:25 Interval history: No chest pain or shortness of breath. No nausea, vomiting or diarrhea. No fevers or chills. 05/21: Rapid response called early this morning as patient was essentially unresponsive. Vital signs were completely stable. Stat head CT was within normal limits. ABG was benign. Patient had been receiving her Xanax scheduled as opposed to p.r.n. this was thought to be the etiology. 05/22: Patient back to baseline cognitively. She states she does take her Xanax regularly at home and often falls asleep for hours or she is difficult to arouse. She states she needs her Xanax, however, and will use it often at home. 05/23: No overnight events. Feels okay. Denies any abdominal pain or nausea vomiting. Events noted and chart reviewed 05/24: Feels dizzy. Not so well. No other specific symptoms. Denies shortness of breath or chest pain. Blood pressure has been running. Sees a nitro patch Review of Systems Review of Systems: All systems reviewed & are unremarkable except as noted in HPI and below Exam Narrative: General: No acute distress, alert and oriented per baseline HEENT: Atraumatic, normocephalic, mucous membranes moist CV: Regular rate and rhythm, S1, S2, positive murmur Lungs: Diminished throughout Abdomen: Soft, nontender, nondistended Extremities: Normal to inspection Skin: No rashes noted, no lesions or wounds seen Objective Data Vital Signs Vital Signs: Vital Signs - 24 hr 05/23/22 14:00 05/23/22 21:16 05/23/22 21:58 Temperature 97.0 F L 98.8 F Pulse Rate 63 61 62 Respiratory Rate 16 16 Blood Pressure 151/74 H 176/87 H Pulse Oximetry 94 97 Oxygen Delivery Oxygen Flow Rate 05/23/22 20:00 05/23/22 20:00 05/24/22 05:55 Temperature 98.4 F Pulse Rate 65 60 Respiratory Rate 12 Blood Pressure 145/78 H Pulse Oximetry 97 96 Oxygen Delivery Nasal Ca
[2022-05-24 15:02] LABS: Alanine Aminotransferase 14 U/L (6-35); Albumin Level 3.6 g/dL (3.5-5.1); Alkaline Phosphatase 42 U/L (38-126); Anion Gap 5 mmol/L (8-16); Aspartate Amino Transferase 42 U/L (14-36); Bilirubin,Total 0.5 mg/dL (0.2-1.3); Blood Urea Nitrogen 30 mg/dL (7-17); Calcium 7.6 mg/dL (8.4-10.2); Carbon Dioxide 23 mmol/L (22-30); Chloride 102 mmol/L (98-107); Estimated CRCL calculation 22 ml/min; Estimated Glomerular Filt Rate 39; Glucose 139 mg/dL (65-110); Potassium 4.3 mmol/L (3.4-5.0); Sodium 130 mmol/L (137-145)
[2022-05-24] MEDS: amLODIPine BESYLATE 5 MG TABLET PO (15:43)
[2022-05-24 16:04] LABS: EDCOVIDSCREEN Negative (Negative)
[2022-05-24 16:05] LABS: Hematocrit 34.3 % (37.0-47.0); Immature Granulocyte Absolute 0.01 K/mm3 (0.00-0.031); Immature Granulocyte Percent A 0.3 % (0-0.5); Immature Platelet Fraction Pct 6.1 % (0.9-11.2); Lymphocytes Absolute Auto 1.58 K/mm3 (0.9-3.2); Lymphocytes Percent Auto 44.1 % (18.3-44.2); Mean Corpuscular HGB Conc 32.1 g/dl (32-36); Mean Corpuscular Hemoglobin 36.9 pg (26-34); Mean Corpuscular Volume 115.1 fl (80-100); Mean Platelet Volume 10.6 fl (7.4-10.4); Monocytes Absolute Auto 0.2 K/mm3 (0.1-0.6); Monocytes Percent Auto 5.9 % (2.6-8.5); Neutrophils Absolute Auto 1.8 K/mm3 (1.3-6.7); Neutrophils Percent Auto 49.7 % (45.5-73.1); Platelet Count Result 121 k/mm3 (150-375); Red Blood Count 2.98 M/mm3 (4.2-5.4); Red Cell Distribution Width 15.1 % (11.5-14.5); White Blood Count 3.6 K/mm3 (4.5-10.0)
[2022-05-24 16:52] LABS: Atypical Lymphocytes Present; Hypochromasia 1+ (NORMAL); Schistocytes None Seen (NORMAL)
[2022-05-24 18:37] LABS: Iron 82 ug/dL (37-170); Lactate Dehydrogenase 247 U/L (120-246)
[2022-05-24 18:48] LABS: Percent Iron Saturation 33 % (20-50)
[2022-05-24 19:44] LABS: Folic Acid 12.6 ng/mL (2.76->20)
[2022-05-25 05:19] VITALS: BP 162/84; PULSE 112; RESP 16; TEMP 36.6; O2SAT 96
[2022-05-25] MEDS: LEVOTHYROXINE SODIUM 100 MCG TABLET PO (06:31)
[2022-05-25 07:50] VITALS: O2SAT 96
[2022-05-25] MEDS: FUROSEMIDE 20 MG TABLET PO (08:32)
[2022-05-25] MEDS: ESCITALOPRAM OXALATE 10 MG TABLET PO (08:32)
[2022-05-25] MEDS: ENOXAPARIN 30 MG/0.3 ML SYRINGE SUB-Q (08:32)
[2022-05-25] MEDS: ASPIRIN 81 MG CHEWABLE TABLET PO (08:33)
[2022-05-25] MEDS: SACUBITRIL/VALSARTAN 24-26 MG TABLET 1 TAB PO (08:33)
[2022-05-25] MEDS: POTASSIUM CHLORIDE 20 MEQ TABLET.ER PO (08:33)
[2022-05-25] MEDS: CHOLESTYRAMINE LIGHT 4 GM POWD.PACK PO (08:33)
[2022-05-25] MEDS: amLODIPine BESYLATE 5 MG TABLET PO (08:33)
[2022-05-25] MEDS: FAMOTIDINE 20 MG TABLET PO (08:33)
[2022-05-25 08:34] VITALS: PULSE 112
[2022-05-25] MEDS: ACIDOPHILUS/BULGARICUS CHEWABLE TABLET 1 TABLET PO (08:34)
[2022-05-25] MEDS: carvediloL 12.5 MG TABLET PO (08:34)
[2022-05-25 09:06] LABS: Hematocrit 37.1 % (37.0-47.0); Hemoglobin 11.8 g/dL (12.0-15.0); Immature Granulocyte Absolute 0.01 K/mm3 (0.00-0.031); Immature Granulocyte Percent A 0.3 % (0-0.5); Immature Platelet Fraction Pct 6.1 % (0.9-11.2); Lymphocytes Absolute Auto 1.51 K/mm3 (0.9-3.2); Lymphocytes Percent Auto 40.9 % (18.3-44.2); Mean Corpuscular HGB Conc 31.8 g/dl (32-36); Mean Corpuscular Hemoglobin 36.9 pg (26-34); Mean Corpuscular Volume 115.9 fl (80-100); Mean Platelet Volume 10.5 fl (7.4-10.4); Monocytes Absolute Auto 0.1 K/mm3 (0.1-0.6); Monocytes Percent Auto 3.8 % (2.6-8.5); Platelet Count Result 131 k/mm3 (150-375); Red Cell Distribution Width 14.7 % (11.5-14.5); White Blood Count 3.7 K/mm3 (4.5-10.0)
[2022-05-25 09:18] LABS: Alanine Aminotransferase 17 U/L (6-35); Alkaline Phosphatase 56 U/L (38-126); Anion Gap 7 mmol/L (8-16); Aspartate Amino Transferase 43 U/L (14-36); Bilirubin,Total 0.6 mg/dL (0.2-1.3); Blood Urea Nitrogen 25 mg/dL (7-17); Calcium 7.9 mg/dL (8.4-10.2); Carbon Dioxide 25 mmol/L (22-30); Chloride 98 mmol/L (98-107); Estimated CRCL calculation 21 ml/min; Estimated Glomerular Filt Rate 36; Glucose 130 mg/dL (65-110); Potassium 3.8 mmol/L (3.4-5.0); Sodium 130 mmol/L (137-145)
[2022-05-25 09:22] VITALS: O2SAT 99
[2022-05-25 09:23] LABS: Macrocytosis 1+ (NORMAL); Schistocytes None Seen (NORMAL)
[2022-05-25] MEDS: CYANOCOBALAMIN INJ 1,000 MCG/ML VIAL 1000 MCG IM (10:50)
--- NOTE | 2022-05-25 13:04 | PDONCCONNOTE ---
Impression mild pancytopenia likely multifactorial at this point not of clinical significance will follow if persistent can be worked up as outpatient Myelodysplastic syndrome is a possibility [facility] - Date/Time Seen 05/25/22 13:04 - History of Present Illness 87 yo female admitted with CHF decompensation developed mild macrocytic anemia with mild leukopenia and thrombocytopenia B 12 lower level of normal range B12 was administered patient does not give a history of blood dycrasia. - Medical History Medical History (Last Reviewed 05/21/22 @ 14:28 by Castillo Veliz MD) Acquired hypothyroidism Anxiety C. difficile colitis Onset Date: ~02/2021 Chronic kidney disease, stage 3 With creatinine between 1 and 1.4 Combined systolic and diastolic congestive heart failure Echocardiogram 06/2021: Mild concentric left ventricular hypertrophy, mild left ventricular enlargement, moderate global left ventricular systolic dysfunction with more pronounced hypokinesis involving inferior lateral wall, impaired diastolic relaxation grade 1 ejection fraction 35-40%, mild left atrial enlargement, small pericardial effusion Depression Diverticulosis HTN (hypertension) Hypothyroidism Pneumonia due to COVID-19 virus Onset Date: ~08/2019 - Surgical History Surgical History (Last Reviewed 05/21/22 @ 14:28 by Castillo Veliz MD) History of appendectomy Hx of cholecystectomy - Family History Family History (Last Reviewed 05/21/22 @ 14:28 by Castillo Veliz MD) Father Heart disease Mother Diabetes mellitus Sibling Diabetes mellitus - Social History Social History (Last Reviewed 05/21/22 @ 14:28 by Castillo Veliz MD) Gender Identity: Gender identity (if verbalized by the patient): Female Sexual Orientation: Sexual Orientation (if Verbalized by the Patient): Straight or Heterosexual Alcohol Use: Alcohol intake: never Substance Use: Substance use: never Substance use type: does not use Others: Spiritual care concerns: No Smoking Status: Smoking status: Never smoker Second hand tobacco smoke exposure: Yes Social Determinants of Health: Has the Lack of Transportation Kept You From Medical Appointments or From Getting Medications?: No Within the Past 12 Months, Were You Worried Whether Your Food Would Run Out Before You Got Money to Buy More?: Never True What is Your Housing Situation Today?: I Have Housing Are You Worried That in the Next 2 Months, You May Not Have Your Own Housing to Live In?: Yes Do You Have Trouble Paying Your Heating Or Electricity Bill?: No Do You Have Trouble Paying For Medicines?: No Are You Currently Unemployed and Looking for Work?: No Highest Level of Education Completed: High School Diploma/GED Do You Have Trouble With Childcare or the Care of a Family Member?: No - Medications Active Medications Generic Name Dose Route Start Last Admin Trade Name Freq PRN Reason Stop Dose Admin Acetaminophen 650 mg 05/18/22 03:27 05/20/22 21:18 Acetaminophen 325 Mg Tablet PO 650 mg Q6H PRN Administration Pain (Scale Score 1-3) Amlodipine Besylate 5 mg 05/24/22 13:35 05/25/22 08:33 Amlodipine Besylate 5 Mg Tablet PO 5 mg QAM BG Administration Aspirin 81 mg 05/18/22 08:00 05/25/22 08:33 Aspirin 81 Mg Chewable Tablet PO 81 mg DAILY@0800 BG Administration Carvedilol 12.5 mg 05/18/22 09:00 05/25/22 08:34 Carvedilol 12.5 Mg Tablet PO 12.5 mg Q12HR BG Administration Cholestyramine Resin 4 gm 05/18/22 09:00 05/25/22 08:33 Cholestyramine Light 4 Gm Powd.Pack PO 4 gm BID BG Administration Enoxaparin Sodium 30 mg 05/18/22 09:00 05/25/22 08:32 Enoxaparin 30 Mg/0.3 Ml Syringe SUB-Q 30 mg DAILY BG Administration Escitalopram Oxalate 10 mg 05/18/22 09:00 05/25/22 08:32 Escitalopram Oxalate 10 Mg Tablet PO 10 mg DAILY BG Administ
[2022-05-25 14:38] VITALS: BP 164/69; PULSE 59; RESP 16; TEMP 36.3; O2SAT 100
--- NOTE | 2022-05-25 15:11 | PM.DS ---
DS: Admitting Diagnosis Discharge Date 05/25/2022 Admitting Diagnosis shortness of breath DS: Discharge Diagnosis Discharge Diagnosis (1) Pulmonary edema cardiac cause: Code(s): I50.1 - Left ventricular failure, unspecified Status: Acute (2) Acute respiratory failure with hypoxia: Code(s): J96.01 - Acute respiratory failure with hypoxia Status: Acute (3) Hypothyroidism: Code(s): E03.9 - Hypothyroidism, unspecified Status: Acute (4) CHF (congestive heart failure): Qualifiers: Heart failure chronicity: acute on chronic Heart failure type: combined systolic and diastolic Qualified Code(s): I50.43 - Acute on chronic combined systolic (congestive) and diastolic (congestive) heart failure Code(s): I50.9 - Heart failure, unspecified Status: Acute (5) Hypertensive emergency: Code(s): I16.1 - Hypertensive emergency Status: Acute (6) Acute kidney injury: Code(s): N17.9 - Acute kidney failure, unspecified Status: Acute DS: Summary Hospital Course Hospital Course: # Pulmonary edema: Presented via EMS from [facility] due to shortness of breath. # acute respiratory failure with hypoxia: COVID influenza negative chest x-ray with cardiomegaly pulmonary vascular congestion. Likely related to pulmonary edema congestive heart failure . Required oxygen in the beginning which was slowly tapered down however still required oxygen at the time of discharge. # acute on chronic congestive heart failure combined diastolic and systolic Echo showed an EF of 30%, pericardial effusion, grade 1 diastolic dysfunction Appreciate cardiology consultation On Entresto Coreg and Lasix was diuresed with IV Lasix but was eventually switched to oral Lasix. # Hypothyroidism: TSH came back elevated at 17, increased dose of levothyroxine from 88 to 100 mcg, recheck in 4-6 weeks outpatient # hypertensive emergency: Resolved . Adjusted medication. Reasonable blood pressure by the time of discharge # acute kidney injury: likely due to diuresis Transition to oral diuresis. Creatinine remains stable and improved continue to monitor as an outpatient basis. # Brief episode of unresponsiveness thought to be secondary to Xanax which was ordered scheduled as opposed to p.r.n, this was discontinued for now, can restart as a p.r.n. medication if patient requests it # DVT prophylaxis with Lovenox # GI prophylaxis with Pepcid # Code status DNR Time Spent with Patient Time attestation: Total time spent providing and/or coordinating discharge services: 45 minutes Exam Narrative: General: No acute distress, alert and oriented per baseline HEENT: Atraumatic, normocephalic, mucous membranes moist CV: Regular rate and rhythm, S1, S2, positive murmur Lungs: Diminished throughout Abdomen: Soft, nontender, nondistended Extremities: Normal to inspection Skin: No rashes noted, no lesions or wounds seen DS: Data Data Completed and Pending Completed studies during hospitalization: Exam Type: ? ? CA echo doppler color flow Study Info Indications ? ? J81.1 - Chronic pulmonary edema Complete two-dimensional, color flow and Doppler transthoracic echocardiogram is performed. Account #: ? ? [id number] Summary ? 1. Technically difficult study with several foreshortened views. ? 2. Left ventricular chamber dimension is normal. ? 3. Left ventricular systolic function is severely reduced, estimated at 30%. ? 4. There is moderately increased left ventricular wall thickness. ? 5. Left ventricular septal wall motion is abnormal with septal motion related to bundle branch block. ? 6. The left ventricular diastolic function is grade I diastolic dysfunction. ? 7. There is mild mitral valve regurgitation. ? 8. There is moderate circumferential pericardial effusion.? Fibrinous material within the pericardial space.? Mild right atrial free wall inv
[2022-05-25 19:09] LABS: Legionella pneumophila Ag Ur Not Detected (Not Detected)
[2022-05-29 08:43] LABS: Methylmalonic Acid 368 nmol/L (87-318)
[2022-05-30 00:37] LABS: Pneumococcal Antigen Urine Not Detected (Not Detected)
== END 2022-05-25 16:24 | DRG 280 ==
LOC: ANHED 23:51 → ANHIMU 05-18 00:31 → ANH3MEDSUR 05-18 16:13
PROVIDERS: Emergency Medicine; Internal Medicine; Student in an Organized Health Care Education/Training Program; Admitting Provider Internal Medicine; Emergency Provider Emergency Medicine; PCP Internal Medicine; Visit Provider Internal Medicine
DX: I13.0 Hypertensive heart and chronic kidney disease with heart failure and stage 1 through stage 4 chronic kidney disease, or unspecified chronic kidney disease (principal); I50.43 Acute on chronic combined systolic (congestive) and diastolic (congestive) heart failure; I21.A1 Myocardial infarction type 2; J96.01 Acute respiratory failure with hypoxia; I16.1 Hypertensive emergency; N17.9 Acute kidney failure, unspecified; D61.818 Other pancytopenia; I31.39 Other pericardial effusion (noninflammatory); T50.2X5A Adverse effect of carbonic-anhydrase inhibitors, benzothiadiazides and other diuretics, initial encounter; N18.30 Chronic kidney disease, stage 3 unspecified; R40.4 Transient alteration of awareness; T42.4X5A Adverse effect of benzodiazepines, initial encounter; Z20.822 Contact with and (suspected) exposure to COVID-19; E03.9 Hypothyroidism, unspecified; K57.90 Diverticulosis of intestine, part unspecified, without perforation or abscess without bleeding; R41.82 Altered mental status, unspecified; Z66 Do not resuscitate; Z86.16 Personal history of COVID-19; Z90.49 Acquired absence of other specified parts of digestive tract
CPT/HCPCS: 36415; 36600; 51703; 70450; 71045; 71046; 71250; 80048; 80053; 81001; 82607; 82728; 82746; 82805; 82948; 83540; 83550; 83605; 83615; 83735; 83880; 83921; 84145; 84443; 84484; 85025; 85027; 85055; 85380; 85610; 85730; 86738; 87040; 87086; 87088; 87426; 87449; 87636; 87899; 93005; 93306; 94618; 96374; 96376; 97110; 97116; 97161; 97165; 97530; 97535; 99285; A9270; C9803; J1650; J1940; J3420

== ENCOUNTER 2022-06-05 09:27 | Outpatient (CLI) | payer MEDICARE, MEDICAID, SELFPAY ==
[2022-06-05 10:19] LABS: Alanine Aminotransferase 13 U/L (6-35); Albumin Level 3.7 g/dL (3.5-5.1); Alkaline Phosphatase 48 U/L (38-126); Anion Gap 4 mmol/L (8-16); Aspartate Amino Transferase 34 U/L (14-36); Bilirubin,Total 0.4 mg/dL (0.2-1.3); Blood Urea Nitrogen 18 mg/dL (7-17); Calcium 7.7 mg/dL (8.4-10.2); Carbon Dioxide 23 mmol/L (22-30); Chloride 112 mmol/L (98-107); Estimated Glomerular Filt Rate 39; Glucose 91 mg/dL (65-110); Potassium 4.1 mmol/L (3.4-5.0); Sodium 139 mmol/L (137-145)
[2022-06-05 11:50] LABS: Basophils Percent Auto 0.3 % (0.2-1.2); Hematocrit 32.5 % (37.0-47.0); Hemoglobin 9.9 g/dL (12.0-15.0); Immature Granulocyte Absolute 0.01 K/mm3 (0.00-0.031); Immature Granulocyte Percent A 0.3 % (0-0.5); Lymphocytes Absolute Auto 1.14 K/mm3 (0.9-3.2); Lymphocytes Percent Auto 35.3 % (18.3-44.2); Mean Corpuscular HGB Conc 30.5 g/dl (32-36); Mean Corpuscular Hemoglobin 36.4 pg (26-34); Mean Corpuscular Volume 119.5 fl (80-100); Mean Platelet Volume 10.4 fl (7.4-10.4); Monocytes Absolute Auto 0.2 K/mm3 (0.1-0.6); Monocytes Percent Auto 6.2 % (2.6-8.5); Neutrophils Absolute Auto 1.9 K/mm3 (1.3-6.7); Neutrophils Percent Auto 57.9 % (45.5-73.1); Platelet Count Result 109 k/mm3 (150-375); Red Blood Count 2.72 M/mm3 (4.2-5.4); Red Cell Distribution Width 14.6 % (11.5-14.5); White Blood Count 3.2 K/mm3 (4.5-10.0)
[2022-06-05 12:50] LABS: Platelet Estimate Adequate (Adequate); Poikilocytosis 1+ (NORMAL); Schistocytes None Seen (NORMAL)
== END 2022-06-05 09:28 | disposition home or self-care (01) ==
LOC: ANHLAB 09:30
PROVIDERS: PCP Internal Medicine; Visit Provider Internal Medicine
DX: I50.9 Heart failure, unspecified (principal); D61.818 Other pancytopenia
CPT/HCPCS: 36415; 80053; 85025

== ENCOUNTER 2022-07-03 07:57 | Emergency (ER) | payer MEDICARE, MEDICAID, SELFPAY ==
--- NOTE | ~2022-07-03 | XR_ITS ---
Right Shoulder Technique: AP and scapular Y views were obtained. Clinical History: Pain, clavicle deformity Findings: There is a fracture through the mid to distal right clavicular shaft, with superior displac ement of the distal fracture fragment by one shaft width. Glenohumeral and AC joints are preserved ot herwise. Soft tissues are unremarkable. Impression: Fractures of the mid to distal right clavicular shaft, as detailed above. Reviewed, dictated and finalized at location . ING MANAGER Impression: Fractures of the mid to distal right clavicular shaft, as detailed above.
--- NOTE | ~2022-07-03 | XR_ITS ---
AP view of the pelvis Clinical history: Pain Findings: No acute fracture or dislocation is seen. Osseous alignment is anatomic. Bilateral hip and SI joint spaces are preserved. Soft tissues are unremarkable. Impression: No significant abnormality is seen. Reviewed, dictated and finalized at location M. ON WRAPPER Impression: No significant abnormality is seen.
--- NOTE | ~2022-07-03 | XR_ITS ---
Portable chest x-ray Comparison: 05/25/2022 Clinical History: Fall, clavicle deformity Findings: Questionable minimal right pleural effusion. No other airspace disease evident. Cardiomed iastinal silhouette is stable. Fracture of the mid to distal right clavicular shaft present, mildly d isplaced. Impression: Fracture of the mid to distal right clavicular shaft, with mild displacement. Probable minimal right pleural effusion. Reviewed, dictated and finalized at [facility]. SPORTATION JOB TITLES Impression: Fracture of the mid to distal right clavicular shaft, with mild displacement. Probable minimal right pleural effusion.
[2022-07-03 08:01] VITALS: BP 153/71; PULSE 67; PULSE 69; RESP 15; RESP 18; TEMP 37; O2SAT 92; O2SAT 93
[2022-07-03 08:02] VITALS: BP 153/71; PULSE 68; RESP 17; O2SAT 92
--- NOTE | 2022-07-03 08:05 | ED.FALL ---
HPI - Fall General Chief Complaint: Fall Stated Complaint: glf 715 deformity to clavicle Time Seen by Provider: 07/03/22 08:02 History of Present Illness HPI Narrative: 87-year-old female presenting with fall, she had been in a skilled nursing and getting out of bed when she slipped and landed on her right arm, denies any trauma to her head or neck, denies any pain anywhere else. No focal numbness or weakness. Endorsing mostly pain to her shoulder and collarbone. Related Data Home Medications Medication Instructions Recorded Confirmed Lactobacillus acidophilus 1 cap PO DAILY 05/18/22 05/18/22 (Acidophilus capsule) acetaminophen 325 mg capsule 650 mg PO Q6H PRN Pain (Scale 05/18/22 05/18/22 Score 1-3) Allergies Allergy/AdvReac Type Severity Reaction Status Date / Time esomeprazole Allergy Rash Verified 12/19/21 10:15 Review of Systems Review of Systems: CONST: No fever. HEENT: No no head trauma or neck pain C/V: No chest pain RESP: No cough GI: No abdominal pain : No dysuria. M/S: Right shoulder and collarbone pain. SKIN: No rash. NEURO: [No focal numbness or weakness] PSYCH: [No depression] [facility] Past Medical History Medical History Acquired hypothyroidism Anxiety C. difficile colitis (~02/2021) Chronic kidney disease, stage 3 With creatinine between 1 and 1.4 Combined systolic and diastolic congestive heart failure Echocardiogram 06/2021: Mild concentric left ventricular hypertrophy, mild left ventricular enlargement, moderate global left ventricular systolic dysfunction with more pronounced hypokinesis involving inferior lateral wall, impaired diastolic relaxation grade 1 ejection fraction 35-40%, mild left atrial enlargement, small pericardial effusion Depression Diverticulosis HTN (hypertension) Hypothyroidism Pneumonia due to COVID-19 virus (~08/2019) Surgical History Surgical History History of appendectomy Hx of cholecystectomy Family History Family History Father Heart disease Mother Diabetes mellitus Sibling Diabetes mellitus Social History Social History Social History: She has been since December of 2019. Her suffered from dementia prior to his and she was the primary caregiver. She has 2 sons. She is a lifelong nonsmoker. She does not drink alcohol. 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 Code status: DNR/DNI Healthcare power of employment attorney: Imsa Grier (son) Smoking status: Never smoker Second hand tobacco smoke exposure: Yes Alcohol intake: never Substance use: never Substance use type: does not use Lack of Transportation: No Lack of Food: Never True Current Housing: I Have Housing Concerned About Future Housing: YES Difficulty Paying Gas/Electric Bills: No Difficulty Paying for Meds: No Currently Unemployed: No Education: High School Diploma/GED Difficulty w/ Childcare or Family Care: No Living arrangements: assisted living Occupation/Education: retired Gender identity (if verbalized by the patient): Female Sexual Orientation (if Verbalized by the Patient): Straight or Heterosexual Spiritual care concerns: No Exam Narrative: EXAMINATION OF ORGAN SYSTEMS/BODY AREAS: Constitutional: Vital signs per nursing GENERAL:[No acute distress, non-toxic appearing, appears to be in some pain.] HEAD: Normal with no signs of head trauma. EYES: EOMI, conjunctiva normal ENT: Hearing grossly intact LUNGS: Nonlabored breathing. HEART: [Regular rate and rhythm] ABD: [Soft], [nontender to palpation] EXT: Obvious deformity right clavicle with tenderness to palpation; neurovascularly intact, no skin tenting, no tenderness to palpation of any other extremity, hips stable SKIN: [N
[2022-07-03 08:31] VITALS: PULSE 66; RESP 14; O2SAT 91
[2022-07-03] MEDS: ACETAMINOPHEN 500 MG TABLET 1000 MG PO (08:31)
--- NOTE | 2022-07-03 10:03 | PC.NURSE ---
Report given too D.O.N. from [facility] regarding pt return to [place].
--- NOTE | 2022-07-03 10:29 | PC.NURSE ---
Pt son will be providing transport back to facility.
== END 2022-07-03 10:48 ==
PROVIDERS: Emergency Provider Emergency Medicine; PCP Internal Medicine
DX: S42.031A Displaced fracture of lateral end of right clavicle, initial encounter for closed fracture (principal); I13.0 Hypertensive heart and chronic kidney disease with heart failure and stage 1 through stage 4 chronic kidney disease, or unspecified chronic kidney disease; N18.30 Chronic kidney disease, stage 3 unspecified; I50.40 Unspecified combined systolic (congestive) and diastolic (congestive) heart failure; E03.9 Hypothyroidism, unspecified; Z86.16 Personal history of COVID-19; Z87.01 Personal history of pneumonia (recurrent); Z66 Do not resuscitate; W01.0XXA Fall on same level from slipping, tripping and stumbling without subsequent striking against object, initial encounter
CPT/HCPCS: 71045; 72170; 73030; 99284; A4565; A9270

== ENCOUNTER 2022-07-06 11:20 | Observation (INO) | payer MEDICARE, MEDICAID, SELFPAY ==
[2022-07-06] VITALS (33 sets, daily range): BP systolic 125–164; BP diastolic 51–73; PULSE 62–72; RESP 18–20; TEMP 36.6–37.2; O2SAT 91–97; BMI 21.9
--- NOTE | ~2022-07-06 | CT_ITS ---
EXAMINATION: CT chest abdomen pelvis wo con DATE: 07/07/2022 14:54 INDICATION: Acute anemia. TECHNIQUE: Computed tomography (CT) of the chest, abdomen, and pelvis was performed without intraveno us contrast. Automated exposure control and iterative reconstruction technique were employed. The dos e-length product was 486.74 mGy-cm. COMPARISON: Chest CT 05/19/2022, 05/15/2021, chest single view 05/02/2023 FINDINGS: CHEST CT: There is mild scarring at the lung apices. There is mild emphysema. Calcified pulmonary nodules are c onsistent with old granulomatous disease. There is atelectasis bilaterally with a right lower lobe de pendent predominance. There is a chronic 7 mm nodule in right lower lobe. There is a chronic 6 mm par t solid nodule in right middle lobe. There is a chronic 6 mm nodule in right middle lobe. There is a chronic 8 mm nodule in right lower lobe. There is an 8 mm nodule in left upper lobe with interval imp rovement from 05/15/2021. There is a chronic 5 mm nodule in left upper lobe. These nodules are all li martina benign. There are small right and trace left pleural effusions. Cardiomegaly is noted. There is a small pericardial effusion, improved from 05/19/2022. There are coronary artery calcifications. The re is mild mediastinal lymphadenopathy, likely reactive. There is an acute comminuted fracture right clavicle. There are acute fractures of right second-fifth ribs. The right second-fourth rib fractures are comminuted with indentation of the lung. There is mild thoracic spondylosis. There is a hemangio ma in T9 vertebral body. ABDOMEN/PELVIS CT: There is chronic moderate intrahepatic biliary duct dilatation. The gallbladder is absent. The spleen , pancreas, adrenal glands, and kidneys are normal. There is a device in the vagina, likely a pessary . There is diverticulosis of the colon without evidence of diverticulitis. The appendix is not visual ized. There are no dilated loops of bowel. There are diverticula of the duodenum. There are no pathol ogically enlarged lymph nodes. There is no free intraperitoneal fluid. There is moderate lower lumbar spondylosis. IMPRESSION: 1. Acute fractures of right clavicle and right second-fifth ribs. 2. Small right pleural effusion. 3. Small pericardial effusion, improved from 05/19/2022. Reviewed, dictated and finalized at location E. ER PRINTING SUPERVISOR
[2022-07-06 12:38] LABS: Basophils Percent Auto 0.1 % (0.2-1.2); Hematocrit 27.4 % (37.0-47.0); Hemoglobin 8.7 g/dL (12.0-15.0); Immature Granulocyte Absolute 0.03 K/mm3 (0.00-0.031); Immature Granulocyte Percent A 0.4 % (0-0.5); Lymphocytes Absolute Auto 1.39 K/mm3 (0.9-3.2); Lymphocytes Percent Auto 20.8 % (18.3-44.2); Mean Corpuscular HGB Conc 31.8 g/dl (32-36); Mean Corpuscular Volume 116.6 fl (80-100); Mean Platelet Volume 10.3 fl (7.4-10.4); Monocytes Absolute Auto 0.4 K/mm3 (0.1-0.6); Monocytes Percent Auto 5.5 % (2.6-8.5); Neutrophils Absolute Auto 4.9 K/mm3 (1.3-6.7); Neutrophils Percent Auto 73.2 % (45.5-73.1); Platelet Count Result 106 k/mm3 (150-375); Red Blood Count 2.35 M/mm3 (4.2-5.4); Red Cell Distribution Width 13.5 % (11.5-14.5); White Blood Count 6.7 K/mm3 (4.5-10.0)
[2022-07-06 12:47] LABS: Alanine Aminotransferase 13 U/L (6-35); Albumin Level 3.5 g/dL (3.5-5.1); Alkaline Phosphatase 51 U/L (38-126); Anion Gap 3 mmol/L (8-16); Aspartate Amino Transferase 29 U/L (14-36); Bilirubin,Total 0.4 mg/dL (0.2-1.3); Blood Urea Nitrogen 30 mg/dL (7-17); Calcium 7.6 mg/dL (8.4-10.2); Carbon Dioxide 24 mmol/L (22-30); Chloride 107 mmol/L (98-107); Estimated CRCL calculation 23 ml/min; Estimated Glomerular Filt Rate 39; Glucose 107 mg/dL (65-110); INR 1.2; Potassium 4.4 mmol/L (3.4-5.0); Prothrombin Time 14.5 Seconds (11.1-14.7); Sodium 134 mmol/L (137-145)
[2022-07-06 12:48] LABS: Partial Thromboplastin Time 29.4 SECONDS (22.3-36.8)
--- NOTE | 2022-07-06 14:39 | PC.NURSE ---
Updated pt colette Ashby
--- NOTE | 2022-07-06 15:00 | PM.IMHP ---
H&P: HPI History of Present Illness Date/Time: 07/06/22 15:00 Chief Complaint: Fall. Narrative: This is a pleasant 87-year-old female with combined systolic and diastolic congestive heart failure, hypertension, hypothyroidism, chronic kidney disease, chronic anemia and other comorbidities who presented to the emergency department via EMS from [facility] for evaluation after a fall. Patient provides the following history. She got up at about 03:30 to use the restroom which is not unusual for her as she is on a diuretic. She felt a bit unsteady and sat in a nearby chair and tried to call for help but unfortunately she slid off of the chair and onto her bottom. It is unclear how long she was sitting on the floor. Eventually she was brought into the hospital after staff noticed that she had blood in her stool. With further questioning the patient has noticed some dark stools but says that is not necessarily unusual for her. She has not had any abdominal or epigastric pain and denies bloating and belching. She is on a baby aspirin daily and takes ibuprofen as needed but it does not sound as though she takes it very often. She denies history of peptic ulcers. On exam today she has a pretty large bruise over the right shoulder and anterior chest and she reports that she had a fall 3 days ago when she lost her balance getting out of bed. She was found to have a fracture of the mid to distal right clavicular shaft with mild displacement and she has been in a sling since. She denies head trauma and loss of consciousness in the false and she also denies feeling lightheaded and dizzy prior to the falls. On arrival to the emergency department today her vital signs were stable. Stool was Hemoccult positive on rectal exam. She is being admitted in this setting for further monitoring and GI consultation. Review of Systems Review of Systems: Twelve systems were reviewed and are negative except for as per HPI. [facility] Past Medical History Medical History (Updated 07/08/22 @ 13:56 by Carmen Ortiz PA-C) Acquired hypothyroidism Anemia Anxiety C. difficile colitis (~02/2021) Chronic kidney disease, stage 3 With creatinine between 1 and 1.4 Combined systolic and diastolic congestive heart failure Echocardiogram 06/2021: Mild concentric left ventricular hypertrophy, mild left ventricular enlargement, moderate global left ventricular systolic dysfunction with more pronounced hypokinesis involving inferior lateral wall, impaired diastolic relaxation grade 1 ejection fraction 35-40%, mild left atrial enlargement, small pericardial effusion Depression Diarrhea Diverticulosis Hypertension Hypothyroidism Pneumonia due to COVID-19 virus (~08/2019) Surgical History Surgical History (Updated 07/08/22 @ 13:56 by Carmen Ortiz PA-C) History of appendectomy History of cholecystectomy Family History Family History Father Heart disease Mother Diabetes mellitus Sibling Diabetes mellitus Social History Social History (Updated 07/08/22 @ 13:56 by Carmen Ortiz PA-C) Social History: She has been since December of 2019. Her suffered from dementia prior to his and she was the primary caregiver. She has 2 sons. She is a lifelong nonsmoker. She does not drink alcohol. 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 Code status: DNR/DNI Healthcare power of wardrobe technician: Isma Grier (son) Smoking status: Never smoker Second hand tobacco smoke exposure: Yes Alcohol intake: never Substance use: never Substance use type: does not use Lack of Transportation: No Lack of Food: Never True Current Housing: I Have Housing Concerned About Future Housing: Decline to Answer Difficulty Paying Gas/Electric Bills: Decline to Answer Difficulty Paying for Meds: Decline to Answer Currently Unemployed: Decline to Answer Educat
--- NOTE | 2022-07-06 15:16 | ED.GENADULT ---
HPI - General Adult General Chief complaint: Fall Stated complaint: fall, low O2, blood in stool Time Seen by Provider: 07/06/22 12:45 Source: patient Mode of arrival: EMS Limitations: no limitations History of Present Illness HPI narrative: 87-year-old with a history of CHF, hypertension was brought in from assisted living facility with complaints of fall. Patient states that she tripped and fell. She also complains of black stool for the past few days. She denies being lightheaded or dizzy. She states that she fell 3 days ago she denies any chest pain, head and neck injury. Onset (ago): day(s) (1) Location: upper extremity (Shoulder) Radiation: non-radiation Severity: mild Quality: aching Pain Consistency: constant Relieving factors: none Exacerbating factors: none Associated symptoms: weakness Treatments prior to arrival: none Related Data Home Medications Medication Instructions Recorded Confirmed Lactobacillus acidophilus 1 cap PO DAILY 05/18/22 05/18/22 (Acidophilus capsule) acetaminophen 325 mg capsule 650 mg PO Q6H PRN Pain (Scale 05/18/22 05/18/22 Score 1-3) Allergies Allergy/AdvReac Type Severity Reaction Status Date / Time esomeprazole Allergy Rash Verified 12/19/21 10:15 Review of Systems Review of Systems: All systems reviewed & are unremarkable except as noted in HPI and below Constitutional: Constitutional: Reports no additional constitutional complaints Eyes: Eyes: Reports no additional eye complaints ENT: Reports system reviewed and no additional complaints, except as documented Cardiovascular: Cardiovascular: Reports no additional cardiovascular complaints Respiratory: Respiratory: Reports no additional respiratory complaints Gastrointestinal: Gastrointestinal: Reports as per HPI Musculoskeletal: Musculoskeletal: Reports as per HPI Neurologic: Reports system reviewed and no additional complaints, except as documented [facility] Past Medical History Medical History Acquired hypothyroidism Anxiety C. difficile colitis (~02/2021) Chronic kidney disease, stage 3 With creatinine between 1 and 1.4 Combined systolic and diastolic congestive heart failure Echocardiogram 06/2021: Mild concentric left ventricular hypertrophy, mild left ventricular enlargement, moderate global left ventricular systolic dysfunction with more pronounced hypokinesis involving inferior lateral wall, impaired diastolic relaxation grade 1 ejection fraction 35-40%, mild left atrial enlargement, small pericardial effusion Depression Diverticulosis HTN (hypertension) Hypothyroidism Pneumonia due to COVID-19 virus (~08/2019) Surgical History Surgical History History of appendectomy Hx of cholecystectomy Family History Family History Father Heart disease Mother Diabetes mellitus Sibling Diabetes mellitus Social History Social History Social History: She has been since December of 2019. Her suffered from dementia prior to his and she was the primary caregiver. She has 2 sons. She is a lifelong nonsmoker. She does not drink alcohol. 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 Code status: DNR/DNI Healthcare power of mergers and acquisitions attorney: Isma Grier (son) Smoking status: Never smoker Second hand tobacco smoke exposure: Yes Alcohol intake: never Substance use: never Substance use type: does not use Lack of Transportation: No Lack of Food: Never True Current Housing: I Have Housing Concerned About Future Housing: YES Difficulty Paying Gas/Electric Bills: No Difficulty Paying for Meds: No Currently Unemployed: No Education: High School Diploma/GED Difficulty w/ Childcare or Family Care: No Living arrangements: ass
[2022-07-06] MEDS: FAMOTIDINE 20 MG/2 ML VIAL IV PUSH ×2 (15:56→21:53)
[2022-07-06] MEDS: SODIUM CHLORIDE 0.9% IV 1,000 ML 150 ML IV CONT (15:56)
[2022-07-06 15:59] LABS: Influenza A QL RT-PCR Negative (Negative); Influenza B QL RT-PCR Negative (Negative); SARS-CoV-2 RNA PCR Negative
[2022-07-06 15:59] LABS: Hematocrit 27.5 % (37.0-47.0); Hemoglobin 8.7 g/dL (12.0-15.0)
--- NOTE | 2022-07-06 17:45 | ADMGEN ---
This patient, Fern Grier, was admitted to Medical Room 343-01. Patient/family oriented to hospital policies and general routines including ID bracelet, bed and alarms, visiting hours, pain management, procedures, bathroom and other care routines, personal items, smoking policy, room service/diet, and visiting hours. Information on how to activate the Rapid Response Team has been discussed. Patient/Family are encouraged to report perceived risks to care and to ask questions if they do not understand what they are told or what they should do.
[2022-07-06] MEDS: SODIUM CHLORIDE 0.9% IV 1,000 ML 125 ML IV CONT (18:03)
[2022-07-06] MEDS: ACETAMINOPHEN 325 MG TABLET 650 MG PO ×2 (18:05→23:47)
[2022-07-06] MEDS: SACUBITRIL/VALSARTAN 97-103 MG TABLET 1 TAB PO (23:43)
[2022-07-06] MEDS: carvediloL 6.25 MG TABLET PO (23:46)
[2022-07-06] MEDS: ALPRAZolam (*CRX) 0.5 MG TABLET PO (23:47)
[2022-07-07] VITALS (13 sets, daily range): BP systolic 133–160; BP diastolic 48–70; PULSE 63–77; RESP 16–20; TEMP 35.8–36.8; O2SAT 90–97
--- NOTE | 2022-07-07 00:19 | WPDANESEPP ---
Anes - Eval Pre Procedure Procedure: EGD Date/Time: 07/07/22 00:19 Surgeon: Hattie Pre Op Diagnosis: GI Bleed/Frequent Falls Patient Data Age: 87 Gender: F Height: 1.6 m Weight: 56 kg Last Vital Signs Temp 97.8 F 07/06/22 19:52 Pulse 62 07/06/22 23:46 Resp 18 07/06/22 19:52 BP 127/56 L 07/06/22 19:52 Pulse Ox 92 07/06/22 19:52 O2 Del Method Nasal Cannula 07/06/22 11:38 O2 Flow Rate 2 07/06/22 11:38 Allergies Allergy/AdvReac Type Severity Reaction Status Date / Time esomeprazole Allergy Rash Verified 12/19/21 10:15 Home Medications Medication Instructions Recorded Confirmed Type albuterol sulfate 90 mcg/actuation 2 puff inhalation Q6HRT PRN 08/11/21 07/06/22 Rx aerosol inhaler (Proventil HFA) Shortness Of Breath #6.7 grams furosemide 20 mg tablet 20 mg PO DAILY #1 tablet 08/11/21 07/06/22 Rx potassium chloride 20 mEq 20 meq PO DAILY #1 tablet 08/11/21 07/06/22 Rx tablet,extended release escitalopram oxalate 10 mg tablet 10 mg PO DAILY #30 tabs 08/29/21 07/06/22 Rx (Lexapro) Lactobacillus acidophilus 1 cap PO DAILY 05/18/22 07/06/22 History (Acidophilus capsule) acetaminophen 325 mg capsule 650 mg PO Q6H PRN Pain (Scale 05/18/22 07/06/22 History Score 1-3) alprazolam 0.5 mg tablet 0.5 mg PO TID #90 tabs 05/25/22 07/06/22 Rx levothyroxine 100 mcg tablet 100 mcg PO DAILY@0630 #30 tabs 05/25/22 07/06/22 Rx (Synthroid) cholestyramine-aspartame 4 gram 4 g PO BID #60 ea 06/14/22 07/06/22 Rx oral powder for susp in a packet (Cholestyramine Light) carvedilol 12.5 mg tablet (Coreg) 6.25 mg PO Q12HR 07/06/22 07/06/22 History sacubitril 97 mg-valsartan 103 mg 97 tablet PO BID 07/06/22 07/06/22 History tablet (Entresto) Laboratory Tests 07/06/22 07/06/22 07/06/22 12:31 12:31 12:31 WBC 6.7 K/mm3 K/mm3 (4.5-10.0) RBC 2.35 M/mm3 L M/mm3 (4.2-5.4) Hgb 8.7 g/dL L g/dL (12.0-15.0) Hct 27.4 % L % (37.0-47.0) MCV 116.6 fl H fl (80-100) MCH 37.0 pg H pg (26-34) MCHC 31.8 g/dl L g/dl (32-36) RDW 13.5 % % (11.5-14.5) Plt Count 106 k/mm3 L k/mm3 (150-375) MPV 10.3 fl fl (7.4-10.4) Immature Gran % (Auto) 0.4 % % (0-0.5) Neut % (Auto) 73.2 % H % (45.5-73.1) Lymph % (Auto) 20.8 % % (18.3-44.2) [place] % (Auto) 5.5 % % (2.6-8.5) Eos % (Auto) 0.0 % % (0-4.4) Baso % (Auto) 0.1 % L % (0.2-1.2) Lymph # (Auto) 1.39 K/mm3 K/mm3 (0.9-3.2) [place] # (Auto) 0.4 K/mm3 K/mm3 (0.1-0.6) Eos # (Auto) 0.0 K/mm3 K/mm3 (0-0.3) Baso # (Auto) 0.0 K/mm3 K/mm3 (0.0-0.1) Abs Immat Gran (auto) 0.03 K/mm3 K/mm3 (0.00-0.031) Absolute Neuts (auto) 4.9 K/mm3 K/mm3 (1.3-6.7) Absolute Nucleated RBC 0.0 K/mm3 K/mm3 (0.0-0.012) Nucleated RBC % 0.0 % % (0.0-0.2) PT 14.5 Seconds Seconds (11.1-14.7) INR 1.2 APTT 29.4 SECONDS SECONDS (22.3-36.8) Sodium 134 mmol/L L mmol/L (137-145) Potassium 4.4 mmol/L mmol/L (3.4-5.0) Chloride 107 mmol/L mmol/L (98-107) Carbon Dioxide 24 mmol/L mmol/L (22-30) Anion Gap 3 mmol/L L mmol/L (8-16) BUN 30 mg/dL H D mg/dL (7-17) Creatinine 1.30 mg/dL H mg/dL (0.7-1.0) Estim Creat Clear Calc 23 ml/min ml/min Estimated GFR 39 L (59 - ) Glucose 107 mg/dL mg/dL (65-110) Calcium 7.6 mg/dL L mg/dL (8.4-10.2) Total Bilirubin 0.4 mg/dL mg/dL (0.2-1.3) AST 29 U/L U/L (14-36) ALT 13 U/L U/L (6-35) Alkaline Phosphatase 51 U/L U/L (38-126) Total Protein 8.0 g/dL g/dL (6.3-8.2) Albumin 3.5 g/dL g/dL (3.5-5.1) Influenza A (RT-PCR) Influenza B (RT-PCR) SARS
[2022-07-07] MEDS: LEVOTHYROXINE SODIUM 100 MCG TABLET PO (05:31)
[2022-07-07 05:44] LABS: Hematocrit 24.7 % (37.0-47.0); Hemoglobin 7.7 g/dL (12.0-15.0); Immature Platelet Fraction Pct 3.8 % (0.9-11.2); Mean Corpuscular HGB Conc 31.2 g/dl (32-36); Mean Corpuscular Hemoglobin 36.5 pg (26-34); Mean Corpuscular Volume 117.1 fl (80-100); Mean Platelet Volume 10.1 fl (7.4-10.4); Platelet Count Result 131 k/mm3 (150-375); Red Blood Count 2.11 M/mm3 (4.2-5.4); Red Cell Distribution Width 13.3 % (11.5-14.5); White Blood Count 4.3 K/mm3 (4.5-10.0)
[2022-07-07 06:04] LABS: Alanine Aminotransferase 12 U/L (6-35); Albumin Level 3.1 g/dL (3.5-5.1); Alkaline Phosphatase 47 U/L (38-126); Anion Gap 4 mmol/L (8-16); Aspartate Amino Transferase 26 U/L (14-36); Bilirubin,Total 0.5 mg/dL (0.2-1.3); Blood Urea Nitrogen 31 mg/dL (7-17); Calcium 7.3 mg/dL (8.4-10.2); Carbon Dioxide 23 mmol/L (22-30); Chloride 109 mmol/L (98-107); Estimated CRCL calculation 24 ml/min; Estimated Glomerular Filt Rate 42; Glucose 86 mg/dL (65-110); Magnesium 1.9 mg/dL (1.6-2.3); Potassium 3.9 mmol/L (3.4-5.0); Sodium 136 mmol/L (137-145)
[2022-07-07] MEDS: LACTATED RINGERS 1,000 ML 150 ML IV CONT ×2 (07:25→07:32)
--- NOTE | 2022-07-07 07:35 | WPDGICN ---
Assessment and Plan Assessment and plan (1) Acute on chronic anemia: Code(s): D64.9 - Anemia, unspecified Status: Acute Assessment and Plan: Patient with decline in hemoglobin. This likely contributes to her falls. She does have a baseline anemia of uncertain nature. Indices reveal that she is macrocytic. For this reason folate B12 levels will be obtained EGD will be performed for suspicion of upper GI bleeding given the dark stools and elevated BUN. (2) Heme positive stool: Code(s): R19.5 - Other fecal abnormalities Status: Acute Assessment and Plan: Occult blood in stool noted suggesting some GI blood loss. Stool is dark in nature suggesting melena or upper GI bleeding. EGD will be performed initially. Further recommendations may be given after endoscopy. (3) Fall from ground level: Code(s): W18.30XA - Fall on same level, unspecified, initial encounter Status: Acute (4) CHF (congestive heart failure): Qualifiers: Heart failure chronicity: acute on chronic Heart failure type: combined systolic and diastolic Qualified Code(s): I50.43 - Acute on chronic combined systolic (congestive) and diastolic (congestive) heart failure Code(s): I50.9 - Heart failure, unspecified Status: Acute GI Consult Note Consult date/time: 07/07/22 07:35 Reason for consult: Anemia, occult blood in stool. Frequent falls. HPI: Fern Grier is a 87 year old female I am asked to see at the request of the emergency room. Patient presented to the ER because of falling at the group home. The group home reports she has had frequent falls. She subsequently was sent to the emergency room. Imaging studies reveal she has a clavicular fracture. Significant ecchymoses on the right shoulder. Hemoglobin was noted be somewhat declined. Stool positive for occult blood. Patient is noted somewhat darkening stool which has occurred intermittently. She denies any significant abdominal pain. Family history noncontributory. Review of Systems Review of Systems: Review of systems noncontributory. [facility] Past Medical History Medical History Acquired hypothyroidism Anemia Anxiety C. difficile colitis (~02/2021) Chronic kidney disease, stage 3 With creatinine between 1 and 1.4 Combined systolic and diastolic congestive heart failure Echocardiogram 06/2021: Mild concentric left ventricular hypertrophy, mild left ventricular enlargement, moderate global left ventricular systolic dysfunction with more pronounced hypokinesis involving inferior lateral wall, impaired diastolic relaxation grade 1 ejection fraction 35-40%, mild left atrial enlargement, small pericardial effusion Depression Diarrhea Diverticulosis HTN (hypertension) Hyponatremia Hypothyroidism Pneumonia due to COVID-19 virus (~08/2019) Surgical History Surgical History History of appendectomy Hx of cholecystectomy Family History Family History Father Heart disease Mother Diabetes mellitus Sibling Diabetes mellitus Social History Social History Social History: She has been since December of 2019. Her suffered from dementia prior to his and she was the primary caregiver. She has 2 sons. She is a lifelong nonsmoker. She does not drink alcohol. 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 Code status: DNR/DNI Healthcare power of loom changer: Isma Grier (son) Smoking status: Never smoker Second hand tobacco smoke exposure: Yes Alcohol intake: never Substance use: never Substance use type: does not use Lack of Transportation: No Lack of Food: Never True Current Housing: I Have Housing Concerned About Future Housing: Decline
--- NOTE | 2022-07-07 07:36 | WPDANESEPPF ---
Anes - Initial Pre Proc Eval Procedure: Operation Date: 07/07/22 07:30 Proposed Procedures p Esophagogastroduodenoscopy EGD - Earl Kuhn MD Date/Time: 07/07/22 07:36 Surgeon: Fernanda Carpenter PA-C Pre Op Diagnosis: GI Bleed/Frequent Falls Patient Data Age: 87 Gender: F Height: 1.6 m Weight: 56 kg Last Vital Signs Temp 36.3 C L 07/07/22 07:26 Pulse 70 07/07/22 07:26 Resp 18 07/07/22 07:26 BP 158/63 H 07/07/22 07:26 Pulse Ox 95 07/07/22 07:26 O2 Del Method Nasal Cannula 07/07/22 07:26 O2 Flow Rate 2 07/07/22 07:26 Allergies Allergy/AdvReac Type Severity Reaction Status Date / Time esomeprazole Allergy Rash Verified 07/07/22 07:22 Home Medications Medication Instructions Recorded Confirmed Type albuterol sulfate 90 mcg/actuation 2 puff inhalation Q6HRT PRN 08/11/21 07/06/22 Rx aerosol inhaler (Proventil HFA) Shortness Of Breath #6.7 grams furosemide 20 mg tablet 20 mg PO DAILY #1 tablet 08/11/21 07/06/22 Rx potassium chloride 20 mEq 20 meq PO DAILY #1 tablet 08/11/21 07/06/22 Rx tablet,extended release escitalopram oxalate 10 mg tablet 10 mg PO DAILY #30 tabs 08/29/21 07/06/22 Rx (Lexapro) Lactobacillus acidophilus 1 cap PO DAILY 05/18/22 07/06/22 History (Acidophilus capsule) acetaminophen 325 mg capsule 650 mg PO Q6H PRN Pain (Scale 05/18/22 07/06/22 History Score 1-3) alprazolam 0.5 mg tablet 0.5 mg PO TID #90 tabs 05/25/22 07/06/22 Rx levothyroxine 100 mcg tablet 100 mcg PO DAILY@0630 #30 tabs 05/25/22 07/06/22 Rx (Synthroid) cholestyramine-aspartame 4 gram 4 g PO BID #60 ea 06/14/22 07/06/22 Rx oral powder for susp in a packet (Cholestyramine Light) carvedilol 12.5 mg tablet (Coreg) 6.25 mg PO Q12HR 07/06/22 07/06/22 History sacubitril 97 mg-valsartan 103 mg 97 tablet PO BID 07/06/22 07/06/22 History tablet (Entresto) Laboratory Tests 07/06/22 07/06/22 07/06/22 12:31 12:31 12:31 WBC 6.7 K/mm3 K/mm3 (4.5-10.0) RBC 2.35 M/mm3 L M/mm3 (4.2-5.4) Hgb 8.7 g/dL L g/dL (12.0-15.0) Hct 27.4 % L % (37.0-47.0) MCV 116.6 fl H fl (80-100) MCH 37.0 pg H pg (26-34) MCHC 31.8 g/dl L g/dl (32-36) RDW 13.5 % % (11.5-14.5) Plt Count 106 k/mm3 L k/mm3 (150-375) MPV 10.3 fl fl (7.4-10.4) Immature Gran % (Auto) 0.4 % % (0-0.5) Neut % (Auto) 73.2 % H % (45.5-73.1) Lymph % (Auto) 20.8 % % (18.3-44.2) [place] % (Auto) 5.5 % % (2.6-8.5) Eos % (Auto) 0.0 % % (0-4.4) Baso % (Auto) 0.1 % L % (0.2-1.2) Lymph # (Auto) 1.39 K/mm3 K/mm3 (0.9-3.2) [place] # (Auto) 0.4 K/mm3 K/mm3 (0.1-0.6) Eos # (Auto) 0.0 K/mm3 K/mm3 (0-0.3) Baso # (Auto) 0.0 K/mm3 K/mm3 (0.0-0.1) Abs Immat Gran (auto) 0.03 K/mm3 K/mm3 (0.00-0.031) Absolute Neuts (auto) 4.9 K/mm3 K/mm3 (1.3-6.7) Absolute Nucleated RBC 0.0 K/mm3 K/mm3 (0.0-0.012) Nucleated RBC % 0.0 % % (0.0-0.2) % Immature Plt Fraction PT 14.5 Seconds Seconds (11.1-14.7) INR 1.2 APTT 29.4 SECONDS SECONDS (22.3-36.8) Sodium 134 mmol/L L mmol/L (137-145) Potassium 4.4 mmol/L mmol/L (3.4-5.0) Chloride 107 mmol/L mmol/L (98-107) Carbon Dioxide 24 mmol/L mmol/L (22-30) Anion Gap 3 mmol/L L mmol/L (8-16) BUN 30 mg/dL H D mg/dL (7-17) Creatinine 1.30 mg/dL H mg/dL (0.7-1.0) Estim Creat Clear Calc 23 ml/min ml/min Estimated GFR 39 L (59 - ) Glucose 107 mg/dL mg/dL (65-110) Calcium 7.6 mg/dL L mg/dL (8.4-10.2) Magnesium Total Bilirubin 0.4 mg/dL mg/dL (0.2-1.3) AST 29 U/L U/L (14-36) ALT 13 U/L U/L (6-35) Alkaline Phosphatase 51
--- NOTE | 2022-07-07 09:12 | PM.IMPN ---
Progress Note: A&P Assessment and Plan (1) Fall from ground level: Code(s): W18.30XA - Fall on same level, unspecified, initial encounter Status: Acute Assessment and Plan: This is the patient's 2nd fall this week with symptoms of lightheadedness and new acute on chronic anemia -Continue sling for right clavicle fracture -Weakness/fall could be due to acute on chronic anemia with symptoms of lightheadedness Hgb 05/17 was 11.0 and today it is 7.7 -EGD without acute pathology, consider colonoscopy outpt if pt continues to have symptoms of dark stool -Due to anemia and falls, will order abd/pelv CT to r/u retroperitoneal bleeding or other acute pathology -PT and OT ordered. Pt currently at [facility] with outpt PT/OT but since she had a 2nd fall this week, may need additional therapy -Pt denies hitting her head during her falls, has no neurological deficits, is alert and oriented, no hx of LOC, no midline cervical tenderness--no need for head CT at this time but if this were to change would consider this. Her symptoms are likely due to her anemia. -TSH 05/17 was 17 and levothyroxine was increased--will recheck levels (2) Acute on chronic anemia: Code(s): D64.9 - Anemia, unspecified Status: Acute Assessment and Plan: Noted to be 11.8 05/17 and today is 7.7 -EGD without pathology -will order C/A/P due to recent falls to ensure no bleeding. Chest CT added due to new oxygen requirements within last few months -Will check additional studies. Direct holder pending (lab states it was a send out). -Iron studies 04/2022 show. Ferritin 188. -B12 low end of normal but methylmalonic acid is high with macrocytic anemia--will order B12 -ddx MDS. Will add peripheral smear, will need f/u with hematology outpt (was seen inpt on 05/17). no evidence of hemolytic anemia (bili and electrolytes normal) -TSH also abnormal back in april, will recheck (3) Heme positive stool: Code(s): R19.5 - Other fecal abnormalities Status: Acute Assessment and Plan: EGD WNL, consider colonoscopy outpt (4) Chronic kidney disease, stage 3: Code(s): N18.30 - Chronic kidney disease, stage 3 unspecified Status: Acute Assessment and Plan: Chronic and at baseline (5) Combined systolic and diastolic congestive heart failure: Code(s): I50.40 - Unspecified combined systolic (congestive) and diastolic (congestive) heart failure Status: Acute Assessment and Plan: No evidence of exacerbation on exam (6) Chronic respiratory failure with hypoxia: Code(s): J96.11 - Chronic respiratory failure with hypoxia Status: Acute Assessment and Plan: Pt states this is new for the last few months -CXR days ago showed minimal right pleural effusion Plan SCDs due to anemia Time Spent With Patient Time with patient: 25 - 35 minutes Subjective Date/time seen: 07/07/22 09:12 Interval history: Pt is a 87-year-old female who came in for fall and blood in her stool. patient states that she is doing okay but she does have some pain in her right arm. She did also have a fall 3 days ago which she sustained a right clavicle shaft fracture and is currently in a sling. This is her 2nd fall this week. She said she has been feeling lightheaded and dizzy but denies those symptoms currently. She denies chest pain or shortness of breath. She says she has been wearing oxygen for the last couple of months but does not always wear it all the time. She denies dysuria. Review of Systems Review of Systems: All systems reviewed & are unremarkable except as noted in HPI and below Exam Narrative: General: Well developed well nourished patient in NAD HEENT: normocephalic Neck: supple, no pain to palpation to the cervical spine Neuro: Alert and oriented x4 CV:RRR Resp:CTA Abd: Soft, non distended. No pain to palpation. Positive bowel sounds Extremities: bruising
[2022-07-07] MEDS: POTASSIUM CHLORIDE 20 MEQ TABLET.ER PO (09:44)
[2022-07-07] MEDS: ALPRAZolam (*CRX) 0.5 MG TABLET PO ×3 (09:44→19:49)
[2022-07-07] MEDS: ACIDOPHILUS/BULGARICUS CHEWABLE TABLET 1 TABLET PO (09:45)
[2022-07-07] MEDS: carvediloL 6.25 MG TABLET PO ×2 (09:45→19:49)
[2022-07-07] MEDS: ESCITALOPRAM OXALATE 10 MG TABLET PO (09:46)
[2022-07-07] MEDS: FAMOTIDINE 20 MG/2 ML VIAL IV PUSH ×2 (09:46→19:50)
[2022-07-07] MEDS: SACUBITRIL/VALSARTAN 97-103 MG TABLET 1 TAB PO ×2 (09:48→19:49)
[2022-07-07 12:04] LABS: Hematocrit 26.1 % (37.0-47.0); Hemoglobin 8.2 g/dL (12.0-15.0)
--- NOTE | 2022-07-07 12:44 | PCOTNOTE ---
Addendum entered by Michelle Bailon OT 07/07/22 15:36: Attempted OT evaluation a second time, patient refused due to being too tired from PT. Educated on importance of participating and pt continued to refused. Following. Original Note: Attempted OT evaluation, patient did not have a sling to support broken clavicle with movement and was in too much pain. Following
[2022-07-07] MEDS: CHOLESTYRAMINE LIGHT 4 GM POWD.PACK PO ×2 (13:20→19:50)
[2022-07-07] MEDS: CYANOCOBALAMIN INJ 1,000 MCG/ML VIAL 1000 MCG IM (16:09)
[2022-07-07 18:31] LABS: Appearance Urine Clear (Clear); Bilirubin Urine Negative (Negative); Blood Urine 1+ (Negative); Color Urine Yellow (Yellow); Glucose Urine UA Negative (Negative); Ketones Urine Negative (Negative); Leukocyte Esterase Ur 1+ LEU/UL (Negative); Nitrate Urine Negative (Negative); Protein Urine 1+ mg/dL (Negative); Specific Grav Ur 1.015 (1.001-1.035); Urobilinogen Urine 0.2 mg/dL (<2.0); pH Urine 5.5 (5.0-9.0)
[2022-07-07 18:33] LABS: Bacteria Urine Trace /hpf; Mucus Urine Rare /lpf; RBC Urine 0-2 /hpf (0-2); Squamous Epithelial Cell Urine Rare /hpf (Few); WBC Urine 31-50 /hpf
[2022-07-07 18:35] LABS: Add Urine Microscopic? YES
[2022-07-07] MEDS: ACETAMINOPHEN 325 MG TABLET 650 MG PO (19:55)
[2022-07-08] VITALS (10 sets, daily range): BP systolic 148–180; BP diastolic 58–88; PULSE 64–80; RESP 17–18; TEMP 36.6; O2SAT 95–98
[2022-07-08] MEDS: LEVOTHYROXINE SODIUM 100 MCG TABLET PO (06:47)
[2022-07-08] MEDS: ACETAMINOPHEN 325 MG TABLET 650 MG PO ×2 (06:48→20:12)
[2022-07-08 08:58] LABS: Basophils Percent Auto 0.2 % (0.2-1.2); Hematocrit 25.9 % (37.0-47.0); Hemoglobin 8.1 g/dL (12.0-15.0); Immature Granulocyte Absolute 0.02 K/mm3 (0.00-0.031); Immature Granulocyte Percent A 0.4 % (0-0.5); Lymphocytes Absolute Auto 1.03 K/mm3 (0.9-3.2); Mean Corpuscular HGB Conc 31.3 g/dl (32-36); Mean Corpuscular Volume 115.1 fl (80-100); Mean Platelet Volume 9.6 fl (7.4-10.4); Monocytes Absolute Auto 0.2 K/mm3 (0.1-0.6); Monocytes Percent Auto 5.4 % (2.6-8.5); Neutrophils Absolute Auto 3.2 K/mm3 (1.3-6.7); Platelet Count Result 120 k/mm3 (150-375); Red Blood Count 2.25 M/mm3 (4.2-5.4); Red Cell Distribution Width 13.6 % (11.5-14.5); White Blood Count 4.5 K/mm3 (4.5-10.0)
--- NOTE | 2022-07-08 09:02 | WPDGIPROGNO ---
Progress Note: A&P Assessment and Plan (1) Heme positive stool: Code(s): R19.5 - Other fecal abnormalities Status: Acute Assessment and Plan: Patient with occult blood noted on stool exam. No obvious bleeding noted. She has acute on chronic anemia. EGD yesterday was unremarkable. Colonoscopy discussed with patient today and she refuses this at present. (2) Acute on chronic anemia: Code(s): D64.9 - Anemia, unspecified Status: Acute Assessment and Plan: Patient with acute anemia on top of a chronic anemia. Occult blood noted. No obvious upper GI source by EGD. Colonoscopy refused. It is quite likely that her bruising at the right shoulder area of clavicle fracture contributes to current anemia. (3) Fall from ground level: Code(s): W18.30XA - Fall on same level, unspecified, initial encounter Status: Acute (4) Fracture of right clavicle: Code(s): S42.001A - Fracture of unspecified part of right clavicle, initial encounter for closed fracture Status: Acute Assessment and Plan: Patient has a large ecchymosis in the area of fracture of the right clavicle. This likely contributes to anemia. Complains of ongoing pain. Some displacement is not identified on imaging performed in the emergency room. Management of this is deferred to primary care service. Subjective Date/time seen: 07/08/22 09:02 Interval history: Patient alert this morning. Complains of pain at her right shoulder. No obvious bleeding noted elsewhere. Review of Systems Review of Systems: Review of systems noncontributory. Exam Narrative: Physical exam reveals patient be alert. Somewhat uncomfortable with right shoulder pain. She has large ecchymoses on right shoulder with area of fractured clavicle. Lungs are clear. Heart without murmur. Abdomen bowel sounds present soft nontender. Objective Data Vital Signs Vital Signs: Vital Signs - 24 hr 07/07/22 09:45 07/07/22 11:47 07/07/22 14:00 Temperature 97.2 F L Pulse Rate 63 67 Respiratory Rate 20 Blood Pressure 136/48 L 149/59 H Pulse Oximetry 95 07/07/22 19:49 07/07/22 19:47 07/07/22 19:49 Temperature 97 F L Pulse Rate 68 71 75 Respiratory Rate 18 Blood Pressure 160/57 H 152/57 H Pulse Oximetry 94 07/07/22 19:50 07/08/22 04:42 07/07/22 12:03 Temperature 97.8 F 96.4 F L Pulse Rate 77 69 Respiratory Rate 18 Blood Pressure 159/59 H 150/64 H 136/48 L Pulse Oximetry 95 Intake/Output Intake/Output: Intake & Output 07/05/22 07/06/22 07/07/22 07/08/22 23:59 23:59 23:59 23:59 Intake Total 1000 2080 0 Output Total 300 350 Balance 700 2080 -350 Meds/Results Medications: Active Medications Generic Name Dose Route Start Last Admin Trade Name Freq PRN Reason Stop Dose Admin Acetaminophen 650 mg 07/06/22 15:27 07/08/22 06:48 Acetaminophen 325 Mg Tablet PO 650 mg Q4H PRN Administration Mild Pain (1-3) or Fever Albuterol 2 puff 07/06/22 22:38 Albuterol Sulfate (*Sp) Aerosol 1 Puff INHALATION Q6HRT PRN Shortness Of Breath Alprazolam 0.5 mg 07/06/22 22:50 07/07/22 19:49 Alprazolam (*Crx) 0.5 Mg Tablet PO 0.5 mg 0900,1200,2100 BG Administration Carvedilol 6.25 mg 07/06/22 22:40 07/07/22 19:49 Carvedilol 6.25 Mg Tablet PO 6.25 mg Q12HR BG Administration Cholestyramine Resin 4 gm 07/07/22 09:00 07/07/22 19:50 Cholestyramine Light 4 Gm Powd.Pack PO 4 gm BID BG Administration Cyanocobalamin 1,000 mcg 07/08/22 09:00 Cyanocobalamin 1,000 Mcg Tablet PO QAM BG Escitalopram Oxalate 10 mg 07/07/22 09:00 07/07/22 09:46 Escitalopram Oxalate 10 Mg Tablet PO 10 mg DAILY BG Administration Famotidine 20 mg 07/06/22 21:00 07/07/22 19:50 Famotidine 20 Mg/2 Ml Vial IV PUSH 20 mg Q12HR BG Administration Furosemide 20 mg 07/09/22 09:00 Furosemide 20 Mg Tablet PO Mo
[2022-07-08] MEDS: ALPRAZolam (*CRX) 0.5 MG TABLET PO ×3 (09:09→20:12)
[2022-07-08] MEDS: ACIDOPHILUS/BULGARICUS CHEWABLE TABLET 1 TABLET PO (09:09)
[2022-07-08] MEDS: ESCITALOPRAM OXALATE 10 MG TABLET PO (09:10)
[2022-07-08] MEDS: FAMOTIDINE 20 MG/2 ML VIAL IV PUSH ×2 (09:10→20:12)
[2022-07-08] MEDS: CYANOCOBALAMIN 1,000 MCG TABLET 1000 MCG PO (09:10)
[2022-07-08] MEDS: POTASSIUM CHLORIDE 20 MEQ TABLET.ER PO (09:11)
[2022-07-08] MEDS: SACUBITRIL/VALSARTAN 97-103 MG TABLET 1 TAB PO ×2 (09:11→20:11)
[2022-07-08 09:12] LABS: Anion Gap 3 mmol/L (8-16); Blood Urea Nitrogen 22 mg/dL (7-17); Calcium 7.3 mg/dL (8.4-10.2); Carbon Dioxide 24 mmol/L (22-30); Chloride 112 mmol/L (98-107); Estimated CRCL calculation 26 ml/min; Estimated Glomerular Filt Rate 47; Glucose 93 mg/dL (65-110); Lactate Dehydrogenase 205 U/L (120-246); Potassium 3.7 mmol/L (3.4-5.0); Sodium 139 mmol/L (137-145)
[2022-07-08] MEDS: CHOLESTYRAMINE LIGHT 4 GM POWD.PACK PO ×2 (09:17→17:43)
[2022-07-08 09:19] LABS: Transferrin 124 mg/dL (206-381)
[2022-07-08] MEDS: carvediloL 6.25 MG TABLET PO ×2 (09:19→20:11)
[2022-07-08 09:38] LABS: Iron 27 ug/dL (37-170)
[2022-07-08 09:49] LABS: Percent Iron Saturation 12 % (20-50)
[2022-07-08 09:50] LABS: Hypochromasia 1+ (NORMAL); Macrocytosis 1+ (NORMAL); Platelet Estimate Decreased (Adequate); Schistocytes None Seen (NORMAL)
[2022-07-08 10:21] LABS: Folic Acid 8.2 ng/mL (2.76->20); Vitamin B12 > 1000.0 pg/mL (239-931)
--- NOTE | 2022-07-08 12:20 | PM.IMPN ---
Progress Note: A&P Assessment and Plan (1) Fall from ground level: Code(s): W18.30XA - Fall on same level, unspecified, initial encounter Status: Acute Assessment and Plan: This is the patient's 2nd fall this week with symptoms of lightheadedness and new acute on chronic anemia -Continue sling for right clavicle fracture -Weakness/fall could be due to acute on chronic anemia with symptoms of lightheadedness Hgb 05/17 was 11.0, yesterday it was 7.7, and today is 8.1. -ct abd/pelv shows clavicle fracture and rib fractures, no other sources of retroperitoneal bleeding -PT and OT ordered. Pt currently [facility] with [facility] but since she had a 2nd fall this week, may need additional therapy -Pt denies hitting her head during her falls, has no neurological deficits, is alert and oriented, no hx of LOC, no midline cervical tenderness--no need for head CT at this time but if this were to change would consider this. Her symptoms are likely due to her anemia. -TSH 05/17 was 17 and levothyroxine was increased--will recheck levels -EGD without acute pathology, pt declined colonoscopy -will need PT/OT evals to determine if she can go back to her assisted living upon discharge or if she will need higher level of care (2) Acute on chronic anemia: Code(s): D64.9 - Anemia, unspecified Status: Acute Assessment and Plan: Noted to be 11.8 05/17 and then down to 7.7 yesterday. Today up to 8.1. -EGD without pathology -Will check additional studies. Direct holder pending (lab states it was a send out). -Iron studies 04/2022 show Ferritin 188. -B12 low end of normal previously, repeat her is >1000. Sounds like she maybe started getting B12 injections at assisted living -ddx MDS. Will add peripheral smear, will need f/u with hematology outpt (was seen inpt on 05/17). no evidence of hemolytic anemia (bili and electrolytes normal) -TSH also abnormal back in April, will recheck (3) Heme positive stool: Code(s): R19.5 - Other fecal abnormalities Status: Acute Assessment and Plan: -EGD WNL -refused colonoscopy (4) Chronic kidney disease, stage 3: Code(s): N18.30 - Chronic kidney disease, stage 3 unspecified Status: Acute Assessment and Plan: Chronic and at baseline (5) Combined systolic and diastolic congestive heart failure: Code(s): I50.40 - Unspecified combined systolic (congestive) and diastolic (congestive) heart failure Status: Acute Assessment and Plan: -No evidence of exacerbation -has small pleural effusion on CT, as well as small pericardial effusion which has improved from prior imaging in April 2022 (6) Chronic respiratory failure with hypoxia: Code(s): J96.11 - Chronic respiratory failure with hypoxia Status: Acute Assessment and Plan: Pt states this is new for the last few months -minimal right pleural effusion Plan SCDs due to anemia Subjective Date/time seen: 07/08/22 12:20 Interval history: 7-year-old female with combined systolic and diastolic congestive heart failure, hypertension, hypothyroidism, chronic kidney disease, chronic anemia and other comorbidities, who presented from assisted living after a fall. She reports pain to her L shoulder and axilla where her clavicle fracture is. She denies cp/sob. She denies abd pain, N/V. She is unsure if she is having blood in her stool or dark stool. Review of Systems Review of Systems: All systems reviewed & are unremarkable except as noted in HPI and below Exam Narrative: General: Well developed well nourished patient in NAD HEENT: normocephalic Neck: supple, no pain to palpation to the cervical spine Neuro: Alert and oriented x4 CV:RRR Resp:CTA Abd: Soft, non distended. No pain to palpation. Positive bowel sounds Extremities: bruising and pain to palpation to the right shoulder. No swelling or bruising to the other area
--- NOTE | 2022-07-08 14:40 | PC.NURSE ---
Spoke with son Isma and gave an update in regards to patient.
--- NOTE | 2022-07-08 16:21 | PC.NURSE ---
Patient is now wanting to proceed with colonoscopy despite her refusal this morning when Fedder with GI rounded this morning. Assembly Department Supervisor called Hattie and updated him on patient's wishes. Fedder to discuss patient's next steps in the morning during rounds.
[2022-07-08 16:48] LABS: Free T4 Free Thyroxine Reflex 0.75 ng/dL (0.78-2.19)
[2022-07-09] VITALS (8 sets, daily range): BP systolic 138–159; BP diastolic 50–86; PULSE 60–78; RESP 16–18; TEMP 36.5–36.6; O2SAT 96–98
[2022-07-09 05:42] LABS: Basophils Percent Auto 0.3 % (0.2-1.2); Hematocrit 26.5 % (37.0-47.0); Hemoglobin 8.3 g/dL (12.0-15.0); Immature Granulocyte Absolute 0.02 K/mm3 (0.00-0.031); Immature Granulocyte Percent A 0.5 % (0-0.5); Lymphocytes Percent Auto 34.3 % (18.3-44.2); Mean Corpuscular HGB Conc 31.3 g/dl (32-36); Mean Corpuscular Hemoglobin 36.6 pg (26-34); Mean Corpuscular Volume 116.7 fl (80-100); Mean Platelet Volume 9.5 fl (7.4-10.4); Monocytes Absolute Auto 0.4 K/mm3 (0.1-0.6); Monocytes Percent Auto 9.5 % (2.6-8.5); Neutrophils Absolute Auto 2.1 K/mm3 (1.3-6.7); Neutrophils Percent Auto 55.4 % (45.5-73.1); Platelet Count Result 127 k/mm3 (150-375); Red Blood Count 2.27 M/mm3 (4.2-5.4); Red Cell Distribution Width 13.8 % (11.5-14.5); White Blood Count 3.8 K/mm3 (4.5-10.0)
[2022-07-09 05:48] LABS: Anion Gap 5 mmol/L (8-16); Blood Urea Nitrogen 19 mg/dL (7-17); Carbon Dioxide 22 mmol/L (22-30); Chloride 112 mmol/L (98-107); Estimated CRCL calculation 26 ml/min; Estimated Glomerular Filt Rate 47; Glucose 79 mg/dL (65-110); Potassium 3.7 mmol/L (3.4-5.0); Sodium 139 mmol/L (137-145)
[2022-07-09] MEDS: LEVOTHYROXINE SODIUM 100 MCG TABLET PO (06:04)
[2022-07-09 06:15] LABS: Macrocytosis 2+ (NORMAL); Schistocytes None Seen (NORMAL)
[2022-07-09] MEDS: ACETAMINOPHEN 325 MG TABLET 650 MG PO ×3 (06:50→19:48)
--- NOTE | 2022-07-09 08:29 | PCPTNOTE ---
Patient refused treatment this session. Patient reported she is too tired at this time to work with therapy. Encouraged patient to participate with PT, patient continued to refuse.
[2022-07-09] MEDS: CHOLESTYRAMINE LIGHT 4 GM POWD.PACK PO (09:48)
[2022-07-09] MEDS: FUROSEMIDE 20 MG TABLET PO (09:50)
[2022-07-09] MEDS: ALPRAZolam (*CRX) 0.5 MG TABLET PO ×3 (09:50→19:48)
[2022-07-09] MEDS: ACIDOPHILUS/BULGARICUS CHEWABLE TABLET 1 TABLET PO (09:50)
[2022-07-09] MEDS: ESCITALOPRAM OXALATE 10 MG TABLET PO (09:50)
[2022-07-09] MEDS: FAMOTIDINE 20 MG/2 ML VIAL IV PUSH ×2 (09:51→19:49)
[2022-07-09] MEDS: POTASSIUM CHLORIDE 20 MEQ TABLET.ER PO (09:51)
[2022-07-09] MEDS: CYANOCOBALAMIN 1,000 MCG TABLET 1000 MCG PO (09:51)
[2022-07-09] MEDS: SACUBITRIL/VALSARTAN 97-103 MG TABLET 1 TAB PO ×2 (09:51→19:48)
[2022-07-09] MEDS: carvediloL 6.25 MG TABLET PO ×2 (10:00→19:48)
--- NOTE | 2022-07-09 11:29 | WPDGIPROGNO ---
Progress Note: A&P Assessment and Plan (1) Fracture of right clavicle: Code(s): S42.001A - Fracture of unspecified part of right clavicle, initial encounter for closed fracture Status: Acute Assessment and Plan: Patient had fracture of her right clavicle after a fall. Large ecchymoses is noted. This likely contributes to her anemia. (2) Fall from ground level: Code(s): W18.30XA - Fall on same level, unspecified, initial encounter Status: Acute Assessment and Plan: Patient has had frequent falls. For this reason found to be anemic with occult blood in stool. EGD was unremarkable will plan colonoscopy as patient now agrees to exclude any additional lesions in the colon. (3) Heme positive stool: Code(s): R19.5 - Other fecal abnormalities Status: Acute Assessment and Plan: Occult blood in stool identified. No obvious significant bleeding described. EGD was normal. Patient now agrees to colonoscopy will plan this on Saturday after preparation this afternoon. (4) Pancytopenia: Code(s): D61.818 - Other pancytopenia Status: Acute Assessment and Plan: Patient with pancytopenia. Etiology unclear. Patient may benefit from hematology evaluation. Subjective Date/time seen: 07/09/22 11:29 Interval history: Patient alert. More comfortable today. Still complains of pain at her right shoulder. No obvious GI blood loss described. Patient states she now agrees to proceeding with colonoscopy. Review of Systems Review of Systems: Review of systems noncontributory. Exam Narrative: Physical exam reveals patient be alert. Vital signs stable. HEENT exam reveals no icterus. Patient has a large ecchymoses right shoulder where she fell and fractured her clavicle. Lungs are clear. Heart without murmur. Abdomen bowel sounds present soft nontender no organomegaly. Objective Data Vital Signs Vital Signs: Vital Signs - 24 hr 07/08/22 14:00 07/08/22 18:40 07/08/22 18:43 Temperature 97.8 F Pulse Rate 64 72 Respiratory Rate 17 Blood Pressure 148/59 H 180/74 H 166/63 H Pulse Oximetry 96 98 Oxygen Delivery Oxygen Flow Rate 07/08/22 18:46 07/08/22 20:11 07/08/22 20:00 Temperature 97.8 F Pulse Rate 80 71 71 Respiratory Rate 18 Blood Pressure 149/74 H 161/88 H Pulse Oximetry 96 96 Oxygen Delivery Oxygen Flow Rate 07/08/22 20:00 07/08/22 21:49 07/09/22 05:42 Temperature 97.8 F 97.8 F Pulse Rate 71 71 70 Respiratory Rate 18 18 18 Blood Pressure 161/58 H 158/86 H Pulse Oximetry 96 96 96 Oxygen Delivery Nasal Cannula Oxygen Flow Rate 2 07/09/22 08:00 07/09/22 09:02 07/09/22 09:02 Temperature Pulse Rate Respiratory Rate Blood Pressure 159/69 H 144/67 H 138/50 L Pulse Oximetry Oxygen Delivery Oxygen Flow Rate 07/09/22 10:00 07/09/22 10:00 Temperature Pulse Rate 66 Respiratory Rate Blood Pressure Pulse Oximetry 96 Oxygen Delivery Nasal Cannula Oxygen Flow Rate 2 Intake/Output Intake/Output: Intake & Output 07/06/22 07/07/22 07/08/22 07/09/22 23:59 23:59 23:59 23:59 Intake Total 1000 2080 1630 360 Output Total 300 750 400 Balance 700 2080 880 -40 Meds/Results Medications: Active Medications Generic Name Dose Route Start Last Admin Trade Name Freq PRN Reason Stop Dose Admin Acetaminophen 650 mg 07/06/22 15:27 07/09/22 06:50 Acetaminophen 325 Mg Tablet PO 650 mg Q4H PRN Administration Mild Pain (1-3) or Fever Albuterol 2 puff 07/06/22 22:38 Albuterol Sulfate (*Sp) Aerosol 1 Puff INHALATION Q6HRT PRN Shortness Of Breath Alprazolam 0.5 mg 07/06/22 22:50 07/09/22 09:50 Alprazolam (*Crx) 0.5 Mg Tablet PO 0.5 mg 0900,1200,2100 BG Administration Carvedilol 6.25 mg 07/06/22 22:40 07/09/22 10:00 Carvedilol 6.25 Mg Tablet PO 6.25 mg Q12HR BG Administration Cholestyramine Resin 4 gm 07/07/22 09:00 02
[2022-07-09] MEDS: PEG (High)/E-LYTE SOLN 4,000 ML BTL 4000 ML PO (13:54)
--- NOTE | 2022-07-09 15:01 | PM.IMPN ---
Progress Note: A&P Assessment and Plan (1) Fall from ground level: Code(s): W18.30XA - Fall on same level, unspecified, initial encounter Status: Acute Assessment and Plan: This is the patient's 2nd fall in one week with symptoms of lightheadedness and new acute on chronic anemia -Weakness/fall could be due to acute on chronic anemia with symptoms of lightheadedness -ct abd/pelv shows clavicle fracture and rib fractures, no other sources of retroperitoneal bleeding -PT and OT ordered. Pt currently at [facility] with outpt PT/OT but since she had a 2nd fall this week, may need additional therapy -SNF has been recommended -Pt denies hitting her head during her falls, has no neurological deficits, is alert and oriented, no hx of LOC, no midline cervical tenderness therefore no indication for head CT (2) Fracture of right clavicle: Code(s): S42.001A - Fracture of unspecified part of right clavicle, initial encounter for closed fracture Status: Acute Assessment and Plan: secondary to fall - continue with sling - supportive care (3) Right rib fracture: Code(s): S22.31XA - Fracture of one rib, right side, initial encounter for closed fracture Status: Acute Assessment and Plan: right 2nd through 5th rib fractures secondary to fall -continue incentive spirometry -increase ambulation -supportive care (4) Acute on chronic anemia: Code(s): D64.9 - Anemia, unspecified Status: Acute Assessment and Plan: patient with decline in hemoglobin to 7.7 this admission - seen in consultation by Gastroenterology - underwent EGD on 07/07/2022 with no acute pathology - Farzana test is pending, no evidence of hemolytic anemia, normal bilirubin - iron stores are low and will begin p.o. ferrous sulfate - B12 stores are adequate - Hgb improved to 8.3 today. remaining stable - patient may benefit from outpatient hematology evaluation. she was recently seen by Hematology April 2022 an outpatient referral for possible myelodysplastic syndrome was discussed, appears patient has not followed up (5) Heme positive stool: Code(s): R19.5 - Other fecal abnormalities Status: Acute Assessment and Plan: -EGD WNL -refused colonoscopy (6) Chronic kidney disease, stage 3: Code(s): N18.30 - Chronic kidney disease, stage 3 unspecified Status: Chronic Assessment and Plan: renal function is consistent with baseline (7) Combined systolic and diastolic congestive heart failure: Code(s): I50.40 - Unspecified combined systolic (congestive) and diastolic (congestive) heart failure Status: Acute Assessment and Plan: No evidence of exacerbation -has small pleural effusion on CT, as well as small pericardial effusion which has improved from prior imaging in April 2022 (8) Hypothyroidism: Code(s): E03.9 - Hypothyroidism, unspecified Status: Acute Assessment and Plan: TSH is elevated at 16.7 with T4 low at 0.75 - increase levothyroxine to 125 mcg daily - will need repeat TSH with reflex as an outpatient in 4-6 weeks Subjective Date/time seen: 07/09/22 15:01 Interval history: date of service: 07/09/2022 Fern Grier is an 87 year old female with a history of CHF, CKD, hypothyroidism, hypertension, and several other comorbidities who is seen in follow-up for fall. Patient reports she is feeling overall improved today. She does have right-sided chest wall discomfort and pain with deep breath or coughing. She endorses bruising of her right arm and shoulder. Otherwise, she has no concerns. She has been participating in therapy. She denies nausea, vomiting, fever, chills, shortness of breath. no dizziness or lightheadedness Review of Systems Review of Systems: All systems reviewed & are unremarkable except as noted in HPI and below Exam Narrative: General: well-nourished, well appearin
[2022-07-10] VITALS (12 sets, daily range): BP systolic 100–171; BP diastolic 53–74; PULSE 70–84; RESP 16–29; TEMP 36.4–36.7; O2SAT 90–98
[2022-07-10] MEDS: PEG (High)/E-LYTE SOLN 4,000 ML BTL 4000 ML PO (04:51)
[2022-07-10 06:42] LABS: Hematocrit 26.6 % (37.0-47.0); Hemoglobin 8.5 g/dL (12.0-15.0); Mean Corpuscular Hemoglobin 36.3 pg (26-34); Mean Corpuscular Volume 113.7 fl (80-100); Mean Platelet Volume 9.9 fl (7.4-10.4); Platelet Count Result 142 k/mm3 (150-375); Red Blood Count 2.34 M/mm3 (4.2-5.4); Red Cell Distribution Width 13.4 % (11.5-14.5); White Blood Count 4.9 K/mm3 (4.5-10.0)
[2022-07-10 06:48] LABS: Anion Gap 4 mmol/L (8-16); Blood Urea Nitrogen 12 mg/dL (7-17); Calcium 7.4 mg/dL (8.4-10.2); Carbon Dioxide 28 mmol/L (22-30); Chloride 104 mmol/L (98-107); Estimated CRCL calculation 26 ml/min; Estimated Glomerular Filt Rate 47; Glucose 85 mg/dL (65-110); Potassium 3.8 mmol/L (3.4-5.0); Sodium 136 mmol/L (137-145)
[2022-07-10 08:29] LABS: Immature Reticulocyte Fraction 28.7 % (3.0-15.9); Reticulocyte Hemoglobin Conten 34.8 pg (28.2-35.7); Reticulocyte Percent 3.12 % (0.7-4.3); Reticulocytes Absolute 0.07 B/L (32.2-175.7)
--- NOTE | 2022-07-10 09:29 | PCOTNOTE ---
Per nursing, pt is currently going through colonoscopy prep for upcoming procedure today and has been on commode several times for an extended period of time. At this time, pt is on commode and states she will be on there for awhile. Will continue per poc duration/frequency tomorrow.
[2022-07-10] MEDS: carvediloL 6.25 MG TABLET PO ×2 (09:31→19:48)
[2022-07-10] MEDS: ESCITALOPRAM OXALATE 10 MG TABLET PO (09:32)
[2022-07-10] MEDS: FAMOTIDINE 20 MG/2 ML VIAL IV PUSH ×2 (09:32→19:48)
[2022-07-10] MEDS: LACTATED RINGERS 1,000 ML 150 ML IV CONT (10:41)
--- NOTE | 2022-07-10 11:11 | PC.NURSE ---
patient off of unit to GI lab
--- NOTE | 2022-07-10 12:22 | PC.NURSE ---
Patient returned to unit from GI lab
--- NOTE | 2022-07-10 17:04 | PM.IMPN ---
Progress Note: A&P Assessment and Plan (1) Fall from ground level: Code(s): W18.30XA - Fall on same level, unspecified, initial encounter Status: Acute Assessment and Plan: This is the patient's 2nd fall in one week with symptoms of lightheadedness and new acute on chronic anemia -Weakness/fall could be due to acute on chronic anemia with symptoms of lightheadedness -ct abd/pelv shows clavicle fracture and rib fractures, no other sources of retroperitoneal bleeding -PT and OT ordered. Pt currently at [facility] with outpt PT/OT but since she had a 2nd fall this week, SNF recommended - awaiting placement decision -Pt denies hitting her head during her falls, has no neurological deficits, is alert and oriented, no hx of LOC, no midline cervical tenderness therefore no indication for head CT (2) Fracture of right clavicle: Code(s): S42.001A - Fracture of unspecified part of right clavicle, initial encounter for closed fracture Status: Acute Assessment and Plan: secondary to fall - continue with sling - supportive care (3) Right rib fracture: Code(s): S22.31XA - Fracture of one rib, right side, initial encounter for closed fracture Status: Acute Assessment and Plan: right 2nd through 5th rib fractures secondary to fall -continue incentive spirometry -increase ambulation -supportive care (4) Acute on chronic anemia: Code(s): D64.9 - Anemia, unspecified Status: Acute Assessment and Plan: patient with decline in hemoglobin to 7.7 this admission - seen in consultation by Gastroenterology - underwent EGD on 07/07/2022 and colonoscopy 07/10 with no acute pathology but it did show hemorrhoids -blood antibody test positive, no evidence of hemolytic anemia, normal bilirubin - iron stores are low and will begin p.o. ferrous sulfate - B12 stores are adequate - Hgb improved to 8.5 today. remaining stable -she was recently seen by Hematology April 2022 an outpatient referral for possible myelodysplastic syndrome was discussed, appears patient has not followed up. Will consult. (5) Heme positive stool: Code(s): R19.5 - Other fecal abnormalities Status: Acute Assessment and Plan: -EGD WNL -colonoscopy with hemorrhoids (6) Chronic kidney disease, stage 3: Code(s): N18.30 - Chronic kidney disease, stage 3 unspecified Status: Chronic Assessment and Plan: renal function is consistent with baseline (7) Combined systolic and diastolic congestive heart failure: Code(s): I50.40 - Unspecified combined systolic (congestive) and diastolic (congestive) heart failure Status: Acute Assessment and Plan: No evidence of exacerbation -has small pleural effusion on CT, as well as small pericardial effusion which has improved from prior imaging in April 2022 (8) Hypothyroidism: Code(s): E03.9 - Hypothyroidism, unspecified Status: Acute Assessment and Plan: TSH is elevated at 16.7 with T4 low at 0.75 - increased levothyroxine to 125 mcg daily - will need repeat TSH with reflex as an outpatient in 4-6 weeks Subjective Date/time seen: 07/10/22 17:04 Interval history: Pt is a 87 y/o female here for falls/anemia. Pt was seen today after her colonoscopy and was doing okay. She was sad that she is weak and that she may not go back to [facility]. She does not want to fall again and is having pain to her right clavicle. she denies chest pain, shortness a breath, fevers, chills or abdominal pain. She is excited for dinner because she is able to eat solid food. Exam Narrative: General: well-nourished, well appearing 87-year-old female, sitting up in bed, comfortable, NARD Neuro: awake, alert and oriented x4, speech clear, no focal neuro deficits noted HEENMT: normocephalic, atraumatic, EOMI, sclerae anicteric Respiratory: clear to auscultation bilaterally, nonlabored ebonie
[2022-07-10] MEDS: FERROUS SULFATE 324 MG TABLET PO (18:08)
[2022-07-10] MEDS: ALPRAZolam (*CRX) 0.5 MG TABLET PO (19:47)
[2022-07-10] MEDS: SACUBITRIL/VALSARTAN 97-103 MG TABLET 1 TAB PO (19:48)
[2022-07-11] VITALS (12 sets, daily range): BP systolic 127–187; BP diastolic 62–81; PULSE 67–82; RESP 16–20; TEMP 36.3–36.4; O2SAT 92–98
[2022-07-11] MEDS: ACETAMINOPHEN 325 MG TABLET 650 MG PO ×3 (03:40→17:53)
[2022-07-11 06:37] LABS: Hematocrit 25.6 % (37.0-47.0); Hemoglobin 8.1 g/dL (12.0-15.0); Mean Corpuscular HGB Conc 31.6 g/dl (32-36); Mean Corpuscular Hemoglobin 36.5 pg (26-34); Mean Corpuscular Volume 115.3 fl (80-100); Mean Platelet Volume 9.7 fl (7.4-10.4); Platelet Count Result 124 k/mm3 (150-375); Red Blood Count 2.22 M/mm3 (4.2-5.4); Red Cell Distribution Width 13.6 % (11.5-14.5); White Blood Count 3.8 K/mm3 (4.5-10.0)
[2022-07-11] MEDS: SACUBITRIL/VALSARTAN 97-103 MG TABLET 1 TAB PO ×2 (09:04→20:07)
[2022-07-11] MEDS: ACIDOPHILUS/BULGARICUS CHEWABLE TABLET 1 TABLET PO (09:04)
[2022-07-11] MEDS: CYANOCOBALAMIN 1,000 MCG TABLET 1000 MCG PO (09:04)
[2022-07-11] MEDS: FERROUS SULFATE 324 MG TABLET PO ×2 (09:04→17:49)
[2022-07-11] MEDS: ESCITALOPRAM OXALATE 10 MG TABLET PO (09:04)
[2022-07-11] MEDS: FUROSEMIDE 20 MG TABLET PO (09:04)
[2022-07-11] MEDS: POTASSIUM CHLORIDE 20 MEQ TABLET.ER PO (09:04)
[2022-07-11] MEDS: CHOLESTYRAMINE LIGHT 4 GM POWD.PACK PO ×2 (09:05→17:49)
[2022-07-11] MEDS: ALPRAZolam (*CRX) 0.5 MG TABLET PO ×3 (09:07→20:07)
[2022-07-11] MEDS: carvediloL 6.25 MG TABLET PO ×2 (09:07→20:07)
[2022-07-11] MEDS: FAMOTIDINE 20 MG/2 ML VIAL IV PUSH ×2 (09:09→20:07)
--- NOTE | 2022-07-11 11:40 | PCPTNOTE ---
Attempted to see patient for PT, however patient refused. Patient reported she needed the bed diamond at this time, encouraged patient to ambulate to the bathroom with PT or transfer to bed side commode to be able to work with PT, however patient continued to refuse and refused PT. Nursing aware and was going in to put patient on bed diamond.
--- NOTE | 2022-07-11 12:42 | PDONCCN ---
HPI - Date of Consult Date/Time: 07/11/22 12:42 Requesting Physician: Elizabeth Crowley PA-C Primary Care Provider: Alli Ricci MD - Consult Narrative Reason for consult: Pancytopenia Narrative: Fern Grier is a 87 year old female assisted living resident with history of congestive heart failure, hypothyroidism, chronic kidney disease and chronic anemia came into the hospital status post fall. She has been complaining of tiredness and fatigue. Denies any bleeding including melena hematochezia. She was found to have distal right clavicular for shaft mild displacement. Labs showed hemoglobin of 8.1 with platelet count of [id number] and WBC of 3.8. CT scan showed acute fracture of the right clavicle and right 2nd 5th rib along with small right pleural effusion and small pericardial. EGD came back normal. Colonoscopy showed internal hemorrhoid and diverticulosis without any active bleeding. She has been complaining of tiredness and fatigue. Review of Systems - Review of Systems All systems reviewed & are unremarkable except as noted in HPI and bel - Neurologic Reports system reviewed and no additional complaints, except as documented [facility] Medical History: Medical History (Last Updated 07/08/22 @ 13:56 by Carmen Ortiz PA-C) Acquired hypothyroidism Anemia Anxiety C. difficile colitis Onset Date: ~02/2021 Chronic kidney disease, stage 3 With creatinine between 1 and 1.4 Combined systolic and diastolic congestive heart failure Echocardiogram 06/2021: Mild concentric left ventricular hypertrophy, mild left ventricular enlargement, moderate global left ventricular systolic dysfunction with more pronounced hypokinesis involving inferior lateral wall, impaired diastolic relaxation grade 1 ejection fraction 35-40%, mild left atrial enlargement, small pericardial effusion Depression Diarrhea Diverticulosis Hypertension Hypothyroidism Pneumonia due to COVID-19 virus Onset Date: ~08/2019 Surgical History: Surgical History (Last Updated 07/08/22 @ 13:56 by Carmen Ortiz PA-C) History of appendectomy History of cholecystectomy Family History: Family History (Last Reviewed 07/07/22 @ 07:38 by Michele Cortez MD) Father Heart disease Mother Diabetes mellitus Sibling Diabetes mellitus - Social History Social History: Social History (Last Updated 07/08/22 @ 13:56 by Carmen Ortiz PA-C) Alcohol Use: Alcohol intake: never Substance Use: Substance use: never Substance use type: does not use Others: Spiritual care concerns: No Living Arrangements: Living arrangements: assisted living Oppucation/Education: Occupation/Education: retired Smoking Status: Smoking status: Never smoker Second hand tobacco smoke exposure: Yes Social Determinants of Health: Has the Lack of Transportation Kept You From Medical Appointments or From Getting Medications?: No Within the Past 12 Months, Were You Worried Whether Your Food Would Run Out Before You Got Money to Buy More?: Never True What is Your Housing Situation Today?: I Have Housing Are You Worried That in the Next 2 Months, You May Not Have Your Own Housing to Live In?: Decline to Answer Do You Have Trouble Paying Your Heating Or Electricity Bill?: Decline to Answer Do You Have Trouble Paying For Medicines?: Decline to Answer Are You Currently Unemployed and Looking for Work?: Decline to Answer Highest Level of Education Completed: Decline to Answer Do You Have Trouble With Childcare or the Care of a Family Member?: Decline to Answer Exam - Vital Signs Vital Signs - 24 hr 07/10/22 14:00 07/10/22 19:48 07/10/22 20:00 Temperature 36.6 C 36.4 C Pulse Rate 72 72 73 Respiratory Rate 18 16 Blood Pressure 159/64 H 142/53 H Pulse Oximetry 91 97 Oxygen Delivery Oxygen Flow Rate 07/10/22 20:00 07/10/22 22:00 07/11/22 06:00 Temperat
--- NOTE | 2022-07-11 15:54 | PM.IMPN ---
Progress Note: A&P Assessment and Plan (1) Fall from ground level: Code(s): W18.30XA - Fall on same level, unspecified, initial encounter Status: Acute Assessment and Plan: This is the patient's 2nd fall in one week with symptoms of lightheadedness and new acute on chronic anemia -Weakness/fall could be due to acute on chronic anemia with symptoms of lightheadedness -ct abd/pelv shows clavicle fracture and rib fractures, no other sources of retroperitoneal bleeding -PT and OT ordered. Pt currently at OR with outpt PT/OT but since she had a 2nd fall this week, SNF recommended - planning for SNF following discharge. Awaiting insurance authorization -Pt denies hitting her head during her falls, has no neurological deficits, is alert and oriented, no hx of LOC, no midline cervical tenderness therefore no indication for head CT (2) Fracture of right clavicle: Code(s): S42.001A - Fracture of unspecified part of right clavicle, initial encounter for closed fracture Status: Acute Assessment and Plan: secondary to fall - continue with sling - supportive care (3) Right rib fracture: Code(s): S22.31XA - Fracture of one rib, right side, initial encounter for closed fracture Status: Acute Assessment and Plan: right 2nd through 5th rib fractures secondary to fall -continue incentive spirometry -increase ambulation -supportive care (4) Acute on chronic anemia: Code(s): D64.9 - Anemia, unspecified Status: Acute Assessment and Plan: patient with decline in hemoglobin to 7.7 this admission - seen in consultation by Gastroenterology - underwent EGD on 07/07/2022 and colonoscopy 07/10 with no acute pathology but did reveal hemorrhoids - blood antibody test positive, no evidence of hemolytic anemia, normal bilirubin - iron stores are low and will begin p.o. ferrous sulfate - B12 levels are adequate - Hgb improved to 8.1 today. remaining stable - may have been worsened due to ecchymoses from a fall/clavicular fracture - patient seen in consultation by Hematology. Concerns for myelodysplastic syndrome. Bone marrow biopsy offered, however patient and her son declined. - follow-up as an outpatient with Hematology if patient decides to pursue further workup (5) Heme positive stool: Code(s): R19.5 - Other fecal abnormalities Status: Acute Assessment and Plan: -EGD WNL -colonoscopy with hemorrhoids which can explain occult blood in stool (6) Chronic kidney disease, stage 3: Code(s): N18.30 - Chronic kidney disease, stage 3 unspecified Status: Chronic Assessment and Plan: renal function is consistent with baseline (7) Combined systolic and diastolic congestive heart failure: Code(s): I50.40 - Unspecified combined systolic (congestive) and diastolic (congestive) heart failure Status: Acute Assessment and Plan: No evidence of exacerbation -has small pleural effusion on CT, as well as small pericardial effusion which has improved from prior imaging in April 2022 (8) Hypothyroidism: Code(s): E03.9 - Hypothyroidism, unspecified Status: Acute Assessment and Plan: TSH is elevated at 16.7 with T4 low at 0.75 - increased levothyroxine to 125 mcg daily - will need repeat TSH with reflex as an outpatient in 4-6 weeks Subjective Date/time seen: 07/11/22 15:54 Interval history: date of service: 07/10/2022 Fern Grier is an 87 year old female with a history of CHF, CKD, hypothyroidism, hypertension, and several other comorbidities who is seen in follow-up for fall. she reports that she is doing well today. Her pain has been controlled. At rest she has no pain but does have some discomfort with moving. Her son is at the bedside today. He reports that she did not wish to participate in therapy today. Patient states that she is planning to continue therapy at [facility] followi
[2022-07-12 04:26] VITALS: BP 152/61; PULSE 64; RESP 16; TEMP 36.5; O2SAT 93
[2022-07-12] MEDS: LEVOTHYROXINE SODIUM 125 MCG TABLET PO (05:37)
[2022-07-12] MEDS: ACETAMINOPHEN 325 MG TABLET 650 MG PO ×2 (06:48→12:17)
[2022-07-12 06:54] LABS: Hemoglobin 8.5 g/dL (12.0-15.0); Mean Corpuscular HGB Conc 31.5 g/dl (32-36); Mean Corpuscular Hemoglobin 36.8 pg (26-34); Mean Corpuscular Volume 116.9 fl (80-100); Mean Platelet Volume 9.5 fl (7.4-10.4); Platelet Count Result 135 k/mm3 (150-375); Red Blood Count 2.31 M/mm3 (4.2-5.4); Red Cell Distribution Width 13.8 % (11.5-14.5); White Blood Count 3.2 K/mm3 (4.5-10.0)
[2022-07-12 07:03] LABS: Anion Gap 2 mmol/L (8-16); Blood Urea Nitrogen 13 mg/dL (7-17); Calcium 7.5 mg/dL (8.4-10.2); Carbon Dioxide 29 mmol/L (22-30); Chloride 104 mmol/L (98-107); Estimated CRCL calculation 23 ml/min; Estimated Glomerular Filt Rate 39; Glucose 87 mg/dL (65-110); Sodium 135 mmol/L (137-145)
[2022-07-12 08:00] VITALS: O2SAT 93
[2022-07-12 08:42] VITALS: O2SAT 93
[2022-07-12] MEDS: FAMOTIDINE 20 MG/2 ML VIAL IV PUSH (08:42)
[2022-07-12] MEDS: SACUBITRIL/VALSARTAN 97-103 MG TABLET 1 TAB PO (08:42)
[2022-07-12] MEDS: POTASSIUM CHLORIDE 20 MEQ TABLET.ER PO (08:42)
[2022-07-12 08:43] VITALS: PULSE 60
[2022-07-12] MEDS: ACIDOPHILUS/BULGARICUS CHEWABLE TABLET 1 TABLET PO (08:43)
[2022-07-12] MEDS: CYANOCOBALAMIN 1,000 MCG TABLET 1000 MCG PO (08:43)
[2022-07-12] MEDS: ESCITALOPRAM OXALATE 10 MG TABLET PO (08:43)
[2022-07-12] MEDS: CHOLESTYRAMINE LIGHT 4 GM POWD.PACK PO ×2 (08:43→16:57)
[2022-07-12] MEDS: carvediloL 6.25 MG TABLET PO (08:43)
[2022-07-12] MEDS: FERROUS SULFATE 324 MG TABLET PO ×2 (08:43→16:56)
[2022-07-12] MEDS: ALPRAZolam (*CRX) 0.5 MG TABLET PO ×2 (08:43→12:17)
--- NOTE | 2022-07-12 13:30 | PM.DS ---
DS: Admitting Diagnosis Discharge Date 07/12/22 Admitting Diagnosis Fall DS: Discharge Diagnosis Discharge Diagnosis (1) Fall from ground level: Code(s): W18.30XA - Fall on same level, unspecified, initial encounter Status: Acute Assessment and Plan: Patient presented after suffering 2 falls in 1 week with proceeding symptoms of lightheadedness in the setting of acute on chronic anemia -Weakness/fall likely precipitated by symptoms related to anemia -participated in PT and OT during admission. Patient was previously at assisted living facility with outpatient PT and OT -given frequent falls, recommendations to continue therapy at SNF. Patient agreeable and was discharged to [facility] -Pt denies hitting her head during her falls, has no neurological deficits, remained alert and oriented, no hx of LOC, no midline cervical tenderness therefore no indication for head CT (2) Fracture of right clavicle: Code(s): S42.001A - Fracture of unspecified part of right clavicle, initial encounter for closed fracture Status: Acute Assessment and Plan: secondary to fall -sling placed during admission which patient will continue with - supportive care provided (3) Right rib fracture: Code(s): S22.31XA - Fracture of one rib, right side, initial encounter for closed fracture Status: Acute Assessment and Plan: right 2nd through 5th rib fractures secondary to fall -continue incentive spirometry. Frequent use encouraged -increase ambulation -supportive care provided (4) Acute on chronic anemia: Code(s): D64.9 - Anemia, unspecified Status: Acute Assessment and Plan: patient with decline in hemoglobin to 7.7 this admission. Baseline hemoglobin 10-11 - seen in consultation by Gastroenterology - underwent EGD on 07/07/2022 and colonoscopy 07/10 with no acute pathology but did reveal hemorrhoids - no evidence of hemolytic anemia - no evidence of hematoma the patient did have extensive ecchymosis at site of clavicle fracture which may have contributed - iron stores low inpatient was started on p.o. ferrous sulfate - B12 levels adequate. Continue home B12 supplementation - concern for myelodysplastic syndrome and review of EMR demonstrates history of pancytopenia dating back to 2020. Patient has been evaluated by Hematology in the past, however did not have follow-up. She was evaluated by Hematology during this admission and bone marrow biopsy was recommended, however the patient declined and states that she is not interested in any invasive diagnostic evaluation or treatment - repeat H&H in 1 week for continued monitoring (5) Heme positive stool: Code(s): R19.5 - Other fecal abnormalities Status: Acute Assessment and Plan: -EGD WNL -colonoscopy with hemorrhoids which can explain occult blood in stool (6) Chronic kidney disease, stage 3: Code(s): N18.30 - Chronic kidney disease, stage 3 unspecified Status: Chronic Assessment and Plan: renal function remained consistent with baseline (7) Combined systolic and diastolic congestive heart failure: Code(s): I50.40 - Unspecified combined systolic (congestive) and diastolic (congestive) heart failure Status: Acute Assessment and Plan: No evidence of exacerbation -small pleural effusion evident on CT, as well as small pericardial effusion which has improved from prior imaging in April 2022 -pt euvolemic (8) Hypothyroidism: Code(s): E03.9 - Hypothyroidism, unspecified Status: Acute Assessment and Plan: TSH is elevated at 16.7 with T4 low at 0.75 - levothyroxine was increased to 125 mcg daily - will need repeat TSH with reflex as an outpatient in 4-6 weeks DS: Summary Hospital Course Hospital Course: Date of admission: 07/06/2022 Date of discharge: 07/12/2022October David Cherrie is an 87 year old female with a histor
[2022-07-12 13:54] VITALS: BP 135/54; PULSE 60; RESP 16; TEMP 36.4; O2SAT 90
[2022-07-12 15:47] LABS: EDCOVIDSCREEN Negative (Negative)
== END 2022-07-12 17:50 ==
LOC: ANHED 12:45 → ANH3MED 16:56
PROVIDERS: Emergency Medicine; Internal Medicine; Internal Medicine Gastroenterology; Physician Assistant; Admitting Provider Internal Medicine; Emergency Provider Family Medicine; PCP Internal Medicine; Visit Provider Physician Assistant
PROC: 0DJ08ZZ Inspection of Upper Intestinal Tract, Via Natural or Artificial Opening Endoscopic (ICD-10-PCS; CPT 43235; principal; 2022-07-07 07:30)
PROC: 0DJD8ZZ Inspection of Lower Intestinal Tract, Via Natural or Artificial Opening Endoscopic (ICD-10-PCS; CPT 45378; principal; 2022-07-10 11:30)
DX: S42.001A Fracture of unspecified part of right clavicle, initial encounter for closed fracture (principal); S22.31XA Fracture of one rib, right side, initial encounter for closed fracture; W07.XXXA Fall from chair, initial encounter; R19.5 Other fecal abnormalities; K64.8 Other hemorrhoids; K57.30 Diverticulosis of large intestine without perforation or abscess without bleeding; M25.511 Pain in right shoulder; D61.818 Other pancytopenia; Z20.822 Contact with and (suspected) exposure to COVID-19; E03.9 Hypothyroidism, unspecified; F41.9 Anxiety disorder, unspecified; I13.0 Hypertensive heart and chronic kidney disease with heart failure and stage 1 through stage 4 chronic kidney disease, or unspecified chronic kidney disease; E11.22 Type 2 diabetes mellitus with diabetic chronic kidney disease; N18.30 Chronic kidney disease, stage 3 unspecified; I50.43 Acute on chronic combined systolic (congestive) and diastolic (congestive) heart failure; J96.11 Chronic respiratory failure with hypoxia; Z66 Do not resuscitate; E87.1 Hypo-osmolality and hyponatremia; F32.A Depression, unspecified; Z86.16 Personal history of COVID-19; Z87.01 Personal history of pneumonia (recurrent); Z82.49 Family history of ischemic heart disease and other diseases of the circulatory system; Z79.51 Long term (current) use of inhaled steroids; Z79.1 Long term (current) use of non-steroidal anti-inflammatories (NSAID); Z79.899 Other long term (current) drug therapy
CPT/HCPCS: 43235; 45378; 36415; 71250; 74176; 80048; 80053; 81001; 82607; 82728; 82746; 83540; 83550; 83615; 83735; 84439; 84443; 84466; 85014; 85018; 85025; 85027; 85046; 85055; 85610; 85730; 86850; 86860; 86870; 86880; 86900; 86901; 86902; 86922; 87086; 87426; 87636; 96361; 96365; 96366; 96372; 96375; 96376; 97110; 97161; 97165; 97530; 97535; 99285; A4565; A9270; C9803; G0378; J0696; J2704; J3420; J7030; J7120

== ENCOUNTER 2022-08-25 19:03 | Inpatient (IN) | payer MEDICARE, MEDICAID, SELFPAY ==
[2022-08-25] VITALS (17 sets, daily range): BP systolic 98–160; BP diastolic 67–97; PULSE 66–99; RESP 24–37; TEMP 36.8–36.9; O2SAT 85–98; BMI 21.4
--- NOTE | ~2022-08-25 | XR_ITS ---
EXAMINATION: XR chest 1V portable Exam Date/Time: 08/25/2022 19:26 CDT HISTORY: AMS Comparison: 07/03/2022. RESULT: Lines, tubes, and devices: None. Lungs and pleura: Slightly increased ill-defined reticular and patchy lateral pulmonary opacities. M ild bilateral costophrenic angle blunting. Bibasilar atelectasis. Cardiomediastinal silhouette: Stable. Other: No acute osseous or upper abdominal finding. Healing right clavicular fracture. IMPRESSION: Pulmonary opacities may represent mild edema. Infection is not excluded. Small bilateral pleural effu sions.. Reviewed, dictated and finalized at location K. IMPRESSION: Pulmonary opacities may represent mild edema. Infection is not excluded. Small bilateral pleural effusions..
--- NOTE | ~2022-08-25 | US_ITS ---
EXAMINATION: US renal BI DATE: 08/27/2022 10:24 INDICATION: Acute kidney injury. TECHNIQUE: Multiple ultrasound grayscale images of the kidneys were obtained. COMPARISON: CT 07/07/2022 FINDINGS: The right kidney measures 10.2 x 3.4 x 4.0 cm. The left kidney measures 9.5 x 5.4 x 4.2 cm. The kidne ys demonstrate increased parenchymal echogenicity, consistent with nonspecific nephropathy. There are cysts in right kidney measuring up to 1.1 cm. There is no hydronephrosis. The bladder is decompresse d by a Begum catheter. IMPRESSION: 1. Normal kidney sizes. Increased renal parenchymal echogenicity, consistent with nonspecific nephrop athy. No hydronephrosis. Reviewed, dictated and finalized at location D. IMPRESSION: 1. Normal kidney sizes. Increased renal parenchymal echogenicity, consistent wi th nonspecific nephropathy. No hydronephrosis.
--- NOTE | ~2022-08-25 | CT_ITS ---
EXAMINATION: CT brain wo con DATE: 08/25/2022 19:46 INDICATION: ams . TECHNIQUE: Computed tomography (CT) of the head was performed without intravenous contrast. The mA wa s adjusted according to patient size. Iterative reconstruction technique was employed. The dose-lengt h product was 832.33 mGy-cm. COMPARISON: None. FINDINGS: No acute intracranial hemorrhage or extra-axial fluid collection. No hydrocephalus, mass, or herniation. No acute ischemic infarct. Unremarkable dural venous sinus attenuation. No acute osseous abnormality. The aerated spaces are clear. Moderate atrophy and chronic white matter change. Atherosclerotic intracranial calcification. 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 Small focus of encephalomalacia in the left parietal lobe posteriorly. IMPRESSION: No acute intracranial process. Reviewed, dictated and finalized at location K.
--- NOTE | 2022-08-25 19:12 | ECG_ITS ---
Measurements Intervals [place] Rate: 90 P: [place]: 0 QRS: -46 QRSD: 84 T: 30 QT: 345 QTc: 424 Interpretive Statements ATRIAL FIBRILLATION LEFT ANTERIOR FASCICULAR BLOCK Electronically Signed On 08-26-2022 12:53:12 CDT by Jam House M.D.
--- NOTE | 2022-08-25 19:27 | ED.GENADULT ---
HPI - General Adult General Chief complaint: Altered Mental Status Stated complaint: Altered Mental Status x12 hrs Time Seen by Provider: 08/25/22 19:05 History of Present Illness HPI narrative: 87-year-old female presenting to the ED for evaluation of altered mental status. Patient is a resident at [facility]. They staff checked on the patient and saw that she had decreased responsiveness they were not aware of her baseline status so no action was taken during the day. Night staff came and confirm that this is not patient's normal baseline. They report that the patient is normally alert and oriented and is able to ambulate. Upon arrival to the ED patient is nonverbal and somnolent. Patient does have a history of congestive heart failure, hypertension. Related Data Home Medications Medication Instructions Recorded Confirmed Lactobacillus acidophilus 1 cap PO DAILY 05/18/22 08/25/22 (Acidophilus capsule) carvedilol 12.5 mg tablet (Coreg) 6.25 mg PO Q12HR 07/06/22 08/25/22 sacubitril 97 mg-valsartan 103 mg 97 tablet PO BID 07/06/22 08/25/22 tablet (Entresto) celecoxib 100 mg capsule (Celebrex) 100 mg PO BID 08/26/22 08/26/22 famotidine 10 mg tablet 10 mg PO DAILY 08/26/22 08/26/22 loratadine 10 mg tablet (Claritin) 10 mg PO DAILY 08/26/22 08/26/22 quetiapine 25 mg tablet (Seroquel) 25 mg PO HS PRN Agitation 08/26/22 08/26/22 Allergies Allergy/AdvReac Type Severity Reaction Status Date / Time esomeprazole Allergy Rash Verified 07/07/22 07:22 Review of Systems Review of Systems: ROS unobtainable: Yes unobtainable due to mental status [facility] Past Medical History Medical History (Updated 08/26/22 @ 07:24 by Cole Cesar MD) Acquired hypothyroidism Anemia Anxiety C. difficile colitis (~02/2021) Chronic kidney disease, stage 3 With creatinine between 1 and 1.4 Combined systolic and diastolic congestive heart failure Echocardiogram 06/2021: Mild concentric left ventricular hypertrophy, mild left ventricular enlargement, moderate global left ventricular systolic dysfunction with more pronounced hypokinesis involving inferior lateral wall, impaired diastolic relaxation grade 1 ejection fraction 35-40%, mild left atrial enlargement, small pericardial effusion Depression Diarrhea Diverticulosis Hypertension Hypothyroidism Pneumonia due to COVID-19 virus (~08/2019) Surgical History Surgical History History of appendectomy History of cholecystectomy Family History Family History Father Heart disease Mother Diabetes mellitus Sibling Diabetes mellitus Social History Social History (Updated 08/26/22 @ 03:58 by Cheyenne Martini DO) Social History: She has been since December of 2019. Her suffered from dementia prior to his and she was the primary caregiver. She has 2 sons. She is a lifelong nonsmoker. She does not drink alcohol. 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 Since her last hospitalization in June 2022 the patient has transition from [facility] to [facility]. Code status: DNR/DNI Healthcare power of city attorney: Isma Grier (son) Smoking status: Never smoker Second hand tobacco smoke exposure: Yes Alcohol intake: never Substance use: never Substance use type: does not use Lack of Transportation: No Lack of Food: Never True Current Housing: I Have Housing Concerned About Future Housing: Decline to Answer Difficulty Paying Gas/Electric Bills: Decline to Answer Difficulty Paying for Meds: Decline to Answer Currently Unemployed: Decline to Answer Education: Decline to Answer Difficulty w/ Childcare or Family Care: Decline to Answer Living arrangements: assisted living Occupation/Education: retired Spiritual care concerns: No Exam Narr
[2022-08-25 19:40] LABS: Basophils Percent Auto 0.3 % (0.2-1.2); Hematocrit 33.2 % (37.0-47.0); Hemoglobin 9.7 g/dL (12.0-15.0); Immature Granulocyte Percent A 1.7 % (0-0.5); Immature Platelet Fraction Pct 8.2 % (0.9-11.2); Lymphocytes Absolute Auto 1.09 K/mm3 (0.9-3.2); Mean Corpuscular HGB Conc 29.2 g/dl (32-36); Mean Corpuscular Hemoglobin 37.3 pg (26-34); Mean Corpuscular Volume 127.7 fl (80-100); Monocytes Absolute Auto 0.3 K/mm3 (0.1-0.6); Monocytes Percent Auto 5.5 % (2.6-8.5); Neutrophils Absolute Auto 4.5 K/mm3 (1.3-6.7); Neutrophils Percent Auto 74.5 % (45.5-73.1); Nucleated Red Blood Cells Absolute Auto 0.1 K/mm3 (0.0-0.012); Nucleated Red Blood Cells Perc 1.7 % (0.0-0.2); Platelet Count Result 108 k/mm3 (150-375); White Blood Count 6.1 K/mm3 (4.5-10.0)
[2022-08-25 19:49] LABS: INR 1.6; Prothrombin Time 18.1 Seconds (11.1-14.7)
[2022-08-25 19:55] LABS: Appearance Urine Turbid (Clear); Bacteria Urine 1+ /hpf; Bilirubin Urine 1+ (Negative); Blood Urine 2+ (Negative); Color Urine Dark Yellow (Yellow); Glucose Urine UA Negative (Negative); Hyaline Casts Urine Present /lpf; Ketones Urine Trace mg/dL (Negative); Leukocyte Esterase Ur 3+ LEU/UL (Negative); Nitrate Urine Negative (Negative); Non Pathogenic Casts >20; Protein Urine 1+ mg/dL (Negative); Specific Grav Ur 1.018 (1.001-1.035); Squamous Epithelial Cell Urine Many /hpf (Few); WBC Urine >100 /hpf
[2022-08-25 19:56] LABS: Add Urine Microscopic? YES
[2022-08-25 20:05] LABS: Anisocytosis 2+ (NORMAL); Hypochromasia 1+ (NORMAL); Platelet Estimate Decreased (Adequate); Schistocytes None Seen (NORMAL)
[2022-08-25 20:16] LABS: Influenza A QL RT-PCR Negative (Negative); Influenza B QL RT-PCR Negative (Negative); RSV RNA, RT-PCR Negative (Negative); SARS-CoV-2 RNA PCR Negative
[2022-08-25 20:17] LABS: Alanine Aminotransferase 45 U/L (6-35); Albumin Level 3.4 g/dL (3.5-5.1); Alkaline Phosphatase 83 U/L (38-126); Anion Gap 12 mmol/L (8-16); Aspartate Amino Transferase 82 U/L (14-36); Bilirubin,Total 1.2 mg/dL (0.2-1.3); Blood Urea Nitrogen 54 mg/dL (7-17); Carbon Dioxide 16 mmol/L (22-30); Chloride 118 mmol/L (98-107); Estimated CRCL calculation 11 ml/min; Estimated Glomerular Filt Rate 14; Glucose 133 mg/dL (65-110); Potassium 6.1 mmol/L (3.4-5.0); Sodium 146 mmol/L (137-145)
[2022-08-25 20:39] LABS: Magnesium 2.5 mg/dL (1.6-2.3); Phosphorus 6.8 mg/dL (2.5-4.5)
[2022-08-25] MEDS: DEXTROSE 50% 25 GM/50 ML SYRINGE IV PUSH (21:23)
[2022-08-25] MEDS: INSULIN HUMAN REGULAR (*BKC) 100 UNITS/ML IV PUSH (21:29)
[2022-08-25] MEDS: CALCIUM GLUCONATE 1,000 MG/10 ML VIAL 1000 MG IV PUSH (21:31)
[2022-08-25] MEDS: SODIUM BICARBONATE 8.4% 50 MEQ/50 ML SYRINGE IV PUSH (21:32)
[2022-08-25] MEDS: SODIUM CHLORIDE 0.9% IV 1,000 ML 999 ML IV CONT (21:32)
--- NOTE | 2022-08-25 21:38 | PM.IMHP ---
H&P: HPI History of Present Illness Date/Time: 08/25/22 21:38 Chief Complaint: Sent in for altered mental status from fpc Narrative: 87-year-old female well known to me from prior hospitalizations with past medical history of combined systolic and diastolic heart failure, hypothyroidism, hypertension, chronic kidney disease and other comorbidities who presented to the ER from [facility] via EMS due to altered mental status. Evidently then daytime nursing staff was not familiar with the patient's the baseline and did not realize that the patient had a decreased level of responsiveness. When the nighttime staff came on and found the patient unresponsive they called EMS to bring her in. The patient is usually alert and oriented times 2-3 and conversational with periods of confusion or poor history regarding recent events. At least this was the patient's mental status last time I had evaluated her. Upon arrival to the ER the patient was nonverbal and somnolent. At the time of my evaluation the patient would moan and grunt to verbal stimuli but would not open her eyes or follow commands. She would moan when her abdomen was palpated. The patient was afebrile in the ER. She was for the most part hypertensive in the ER. However blood pressures normalized without intervention. Her labs demonstrated normal white count. Stable/slightly increased hemoglobin from baseline, stable thrombocytopenia, normal coags but acute kidney injury on chronic kidney disease with creatinine increased from 1.32 months ago up to 3.1 and potassium of 6.1. EKG was personally reviewed and did not demonstrate any peaked T-waves. EKG EKG read per the machine was atrial fibrillation but P waves were clearly visualized. The patient does have some irregularity in sinus arrhythmia. CT of the head demonstrated no acute intercranial process and chest x-ray demonstrated opacities that may represent mild edema but infection not excluded with small pleural effusions. UA was suggestive of UTI. Patient was treated with calcium, dextrose, insulin, and 1 amp of bicarb. Lokelma was ordered but the patient was unable to participate in swallowing medication due to her mentation. She received 1 L fluid bolus and was started on a bicarb drip per my request. The entirety of HPI was obtained from past medical records, ER report and EMS/fpc report. Patient is A&O x 0. Review of Systems Review of Systems: ROS unobtainable: Yes unobtainable due to mental status PMF[facility] Past Medical History Medical History (Updated 08/26/22 @ 03:46 by Cheyenne Martini DO) Acquired hypothyroidism Anemia Anxiety C. difficile colitis (~02/2021) Chronic kidney disease, stage 3 With creatinine between 1 and 1.4 Combined systolic and diastolic congestive heart failure Echocardiogram 06/2021: Mild concentric left ventricular hypertrophy, mild left ventricular enlargement, moderate global left ventricular systolic dysfunction with more pronounced hypokinesis involving inferior lateral wall, impaired diastolic relaxation grade 1 ejection fraction 35-40%, mild left atrial enlargement, small pericardial effusion Depression Diarrhea Diverticulosis Hypertension Hypothyroidism Pneumonia due to COVID-19 virus (~08/2019) Surgical History Surgical History History of appendectomy History of cholecystectomy Family History Family History Father Heart disease Mother Diabetes mellitus Sibling Diabetes mellitus Social History Social History (Updated 08/26/22 @ 03:58 by Cheyenne Martini DO) Social History: She has been since December of 2019. Her suffered from dementia prior to his and she was the primary caregiver. She has 2 sons. She is a lifelong nonsmoker. She does not drink alcohol. She used to work as a virtual customer assistant at an [employer]
--- NOTE | 2022-08-25 22:30 | PC.NURSE ---
This patient, Fern Grier, was admitted to Medical Room 244-. Patient/family oriented to hospital policies and general routines including ID bracelet, bed and alarms, visiting hours, pain management, procedures, bathroom and other care routines, personal items, smoking policy, room service/diet, and visiting hours. Information on how to activate the Rapid Response Team has been discussed. Patient/Family are encouraged to report perceived risks to care and to ask questions if they do not understand what they are told or what they should do.
[2022-08-25] MEDS: SODIUM BICARBONATE 8.4% 150 MEQ in DEXTROSE 5% 1,000 ML 950 ML 50 MEQ IV CONT (22:38)
[2022-08-26] VITALS (11 sets, daily range): BP systolic 121–137; BP diastolic 65–70; PULSE 68–86; RESP 18–22; TEMP 36.2–36.4; O2SAT 94–95
[2022-08-26 05:48] LABS: Basophils Percent Auto 0.3 % (0.2-1.2); Hemoglobin 9.8 g/dL (12.0-15.0); Immature Granulocyte Absolute 0.09 K/mm3 (0.00-0.031); Immature Granulocyte Percent A 1.3 % (0-0.5); Immature Platelet Fraction Pct 8.6 % (0.9-11.2); Lymphocytes Absolute Auto 1.16 K/mm3 (0.9-3.2); Lymphocytes Percent Auto 16.3 % (18.3-44.2); Mean Corpuscular HGB Conc 28.8 g/dl (32-36); Mean Corpuscular Volume 131.8 fl (80-100); Mean Platelet Volume 11.8 fl (7.4-10.4); Monocytes Absolute Auto 0.8 K/mm3 (0.1-0.6); Monocytes Percent Auto 10.5 % (2.6-8.5); Neutrophils Absolute Auto 5.1 K/mm3 (1.3-6.7); Neutrophils Percent Auto 71.6 % (45.5-73.1); Nucleated Red Blood Cells Absolute Auto 0.1 K/mm3 (0.0-0.012); Nucleated Red Blood Cells Perc 1.4 % (0.0-0.2); Platelet Count Result 101 k/mm3 (150-375); Red Blood Count 2.58 M/mm3 (4.2-5.4); Red Cell Distribution Width 18.1 % (11.5-14.5); White Blood Count 7.1 K/mm3 (4.5-10.0)
[2022-08-26] MEDS: LEVOTHYROXINE SODIUM INJ 100 MCG/5 ML VIAL 75 MCG IV PUSH (05:49)
[2022-08-26 05:58] LABS: Anion Gap 7 mmol/L (8-16); Blood Urea Nitrogen 58 mg/dL (7-17); Calcium 7.5 mg/dL (8.4-10.2); Carbon Dioxide 21 mmol/L (22-30); Chloride 119 mmol/L (98-107); Estimated CRCL calculation 12 ml/min; Estimated Glomerular Filt Rate 17; Glucose 159 mg/dL (65-110); Lactic Acid Reflex 1.4 mmol/L (0.7-2.0); Potassium 5.1 mmol/L (3.4-5.0); Sodium 147 mmol/L (137-145)
[2022-08-26 06:11] LABS: Anisocytosis 1+ (NORMAL); Burr Cells 1+ (NORMAL); Macrocytosis 3+ (NORMAL); Platelet Estimate Decreased (Adequate); Polychromasia 1+ (NORMAL); Schistocytes None Seen (NORMAL)
[2022-08-26] MEDS: SODIUM CHLORIDE 0.45% 1,000 ML 75 ML IV CONT ×2 (09:11→22:09)
[2022-08-26 11:11] LABS: Creatinine Urine 157.1 mg/dL; Total Protein Urine Random 43 mg/dL; Ur Ttl Prot Creatinine Ratio 0.27 mg/mg (0-0.20); Urea Random Urine 901 MG/DL
[2022-08-26 11:12] LABS: Sodium Urine Random 41 meq/L
[2022-08-26 11:24] LABS: Eosinophil Urine None Seen % (None Seen); Urine Eos QC 2nd Tech Confirmed
[2022-08-26 12:53] LABS: Sodium 146 mmol/L (137-145)
--- NOTE | 2022-08-26 13:32 | PM.CNNEP ---
Assessment and Plan Assessment and plan (1) CIERRA (acute kidney injury): Code(s): N17.9 - Acute kidney failure, unspecified Status: Acute Assessment and Plan: multifactorial: pre-renal factors diuretic use ACCOUNT OFFICER entresto use ACCOUNT OFFICER suspected UTI agree with trial of IVFs check urine electrolytes, urine eosinophils, and renal ultrasound follow I/Os follow repeat labs (2) Stage 3b chronic kidney disease: Code(s): N18.32 - Chronic kidney disease, stage 3b Status: Acute Assessment and Plan: baseline creatinine runs around 1.1 - 1.4mg/dl due to heart disease, chronic diuretics, hypertension, and age-related charge (3) Acute hyperkalemia: Code(s): E87.5 - Hyperkalemia Status: Acute Assessment and Plan: due to CIERRA along with use of entresto and potassium supplements s/p medical management in the ER follow repeat K+ levels (4) Altered mental status: Code(s): R41.82 - Altered mental status, unspecified Status: Acute Assessment and Plan: presumably due to CIERRA and acute infecttion/UTI CT of head noted follow-up on TSH (on levothyroxine anyway) follow mentation (5) Acute UTI: Code(s): N39.0 - Urinary tract infection, site not specified Status: Acute Assessment and Plan: admission UA highly suggestive on antibiotics follow-up on culture data I will continue to follow the patient with you while she remains hospitalized to make further recommendations during her hospital course. Thank you for allowing me to participate in the care this patient. History of Present Illness Reason for Consult Consult date: 08/26/22 Reason for consult: acute renal failure (on chronic kidney disease) Chief Complaint Chief complaint: Altered Mental Status, hyperkaemia, UTI History of Present Illness Narrative: All of the information I have obtained is from review of the electronic medical record as the swell as discussion with the physician/nurses involved in the patient's care as is difficult to get a full and complete history from the patient due to her altered mental status. The patient is an 87-year-old female with extensive past medical history who presented to [facility] from her nursing facility for further evaluation of altered mental status. Apparently, the patient's mentation has declined over the course of the entire day prior to her presentation to the emergency room. The daytime nursing staff was not apparently familiar with her baseline mentation but then when the evening nursing staff took over, they noted her to be almost unresponsive and called EMS. The patient is usually alert oriented times 2-3 and is able to have a conversation in spite of her chronic confusion. By the time of her arrival to the ER, the patient was nonverbal and quite lethargic/somnolent. She apparently was hemodynamically stable but routine blood test demonstrated an elevated BUN and creatinine above her baseline in association with hyperkalemia. CT scan of the head demonstrated no acute intracranial process and her chest x-ray demonstrated mild edema but no evidence of infection. Her urinalysis however was quite suggestive of urinary tract infection. She received medical management for hyperkalemia and after appropriate cultures were obtained, she was started on antibiotic therapy for her likely urinary tract infection. She received IV fluids and was started on a bicarb drip with subsequent admission to the hospital. Since her admission, her mentation has not really improved all that much although her potassium and renal function seemed to be doing somewhat better. Renal consultation was requested due to her acute kidney injury on top of her baseline kidney disease. From review of her records, her baseline creatinine runs around 1.1-1.4 mg/dL and is presumably secondary to heart disease/congestive heart failure wi
--- NOTE | 2022-08-26 14:48 | PM.IMPN ---
Progress Note: A&P Assessment and Plan (1) Acute metabolic encephalopathy: Code(s): G93.41 - Metabolic encephalopathy Status: Acute Assessment and Plan: Due to a combination of acute on chronic kidney injury and acute UTI. The patient had normal B12 and folate levels in June. TSH high in June, recheck. per son, patient is at her baseline at this time (2) Acute renal failure superimposed on stage 3 chronic kidney disease: Code(s): N17.9 - Acute kidney failure, unspecified; N18.30 - Chronic kidney disease, stage 3 unspecified Status: Acute Assessment and Plan: Due to combination of dehydration, patient's home diuretic use, decreased oral intake and continued use of nephrotoxic agents in her dehydrated state and complicated by her urinary tract infection. received bicarb drip on admission with improvement in renal function and acidosis. Creatinine remains elevated at 2.7. Transition to 0.45 normal saline at 75 mL/hour. Appreciate Nephrology recommendations. Continue with Begum catheter to monitor urine output given incontinence. Hold nephrotoxins and diuretics (3) Acute hyperkalemia: Code(s): E87.5 - Hyperkalemia Status: Acute Assessment and Plan: The patient received appropriate acute treatment with insulin, glucose, bicarb, and calcium in the ER. The patient was unable to intake the lokelma. Did not have any peaked T-waves. potassium improved to 5.1 today. Continue with IV fluids (4) Hypothyroidism: Qualifiers: Hypothyroidism type: acquired Qualified Code(s): E03.9 - Hypothyroidism, unspecified Code(s): E03.9 - Hypothyroidism, unspecified Status: Acute Assessment and Plan: TSH elevated in June. Recheck most recent TSH. Continue levothyroxine (5) Acute UTI: Code(s): N39.0 - Urinary tract infection, site not specified Status: Acute Assessment and Plan: Patient has altered mental status and grossly abnormal UA. Most likely consistent with UTI. Continue empiric antibiotic therapy with Rocephin. Blood cultures and urine cultures are pending. tailor antibiotics accordingly Plan The patient's family confirmed that the patient is DNR/DNI with comfort based treatment. planning for hospice informational meeting. Appreciate care coordination evaluation. Subjective Date/time seen: 08/26/22 14:48 Interval history: date of service: 08/26/2022 ruthie car is being seen in follow-up for CIERRA. the patient is awake during my encounter but Is not able to contribute to history. She tells me her name but does not answer any additional questions. RN at bedside who reports that she has not participated in any conversation with her today either not able to answer any questions. States she will occasionally shake her head yes or no. Her in states that in conversation with the patient's son/POA this is quite typical for the patient. States she sleeps for most the day and has been stating that she is ready to . Spoke with Isma MICHAEL, via phone regarding this conversation. Isma states that the patient has been stating for quite some time that she is ready to go. she has refused any invasive testing or treatments recently and has stated that she does not wish to undergo any further treatment for any issues. Discussed with Isma regarding hospice care. Isma states that staff at [facility] have recently discussed this with them as well. He states that he and his brother are leaning towards this option. Would like to plan for informational meeting. Review of Systems Review of Systems: All systems reviewed & are unremarkable except as noted in HPI and below ROS unobtainable: Yes unobtainable due to mental status Exam Narrative: General: Thin, chronically ill-appearing 87-year-old female, sitting up in bed, comfortable, NARD Neuro: drowsy, alert and oriented x1, no focal neuro deficits
[2022-08-26] MEDS: FERROUS SULFATE 324 MG TABLET PO (16:53)
[2022-08-26] MEDS: carvediloL 6.25 MG TABLET PO (21:54)
[2022-08-27] VITALS (10 sets, daily range): BP systolic 111–132; BP diastolic 68–83; PULSE 73–99; RESP 18–20; TEMP 36.4–36.8; O2SAT 91–97
[2022-08-27] MEDS: LEVOTHYROXINE SODIUM 125 MCG TABLET PO (05:55)
[2022-08-27 06:05] LABS: Hematocrit 32.8 % (37.0-47.0); Hemoglobin 9.4 g/dL (12.0-15.0); Immature Platelet Fraction Pct 9.5 % (0.9-11.2); Mean Corpuscular HGB Conc 28.7 g/dl (32-36); Mean Corpuscular Hemoglobin 37.8 pg (26-34); Mean Corpuscular Volume 131.7 fl (80-100); Mean Platelet Volume 11.7 fl (7.4-10.4); Platelet Count Result 106 k/mm3 (150-375); Red Blood Count 2.49 M/mm3 (4.2-5.4); Red Cell Distribution Width 17.4 % (11.5-14.5); White Blood Count 7.4 K/mm3 (4.5-10.0)
[2022-08-27 06:20] LABS: Alanine Aminotransferase 28 U/L (6-35); Albumin Level 2.5 g/dL (3.5-5.1); Alkaline Phosphatase 55 U/L (38-126); Anion Gap 5 mmol/L (8-16); Aspartate Amino Transferase 39 U/L (14-36); Bilirubin,Total 0.6 mg/dL (0.2-1.3); Blood Urea Nitrogen 53 mg/dL (7-17); Carbon Dioxide 24 mmol/L (22-30); Chloride 114 mmol/L (98-107); Creatine Kinase 66 U/L (30-135); Estimated CRCL calculation 16 ml/min; Estimated Glomerular Filt Rate 24; Glucose 87 mg/dL (65-110); Potassium 4.1 mmol/L (3.4-5.0); Sodium 143 mmol/L (137-145)
[2022-08-27] MEDS: FERROUS SULFATE 324 MG TABLET PO ×2 (08:55→17:23)
[2022-08-27] MEDS: CYANOCOBALAMIN 1,000 MCG TABLET 1000 MCG PO (08:55)
[2022-08-27] MEDS: ESCITALOPRAM OXALATE 10 MG TABLET PO (08:55)
[2022-08-27] MEDS: carvediloL 6.25 MG TABLET PO ×2 (08:55→20:20)
[2022-08-27 10:22] LABS: Glucose Point of Care 70 mg/dl (65-105)
--- NOTE | 2022-08-27 11:44 | P.PNNP_ITS ---
Progress Note: A&P Assessment and Plan (1) CIERRA (acute kidney injury): Code(s): N17.9 - Acute kidney failure, unspecified Status: Acute Assessment and Plan: * improvement noted * multifactorial: * pre-renal factors * diuretic use BILLET EXAMINER * entresto use BILLET EXAMINER * suspected UTI * agree with trial of IVFs * evaluation to date: * renal ultrasound c/w CKD; no acute issues * UA significant for infection * urine electrolytes are prerenal * urine eosinophils negative * CPK okay * follow I/Os * follow repeat labs and UOP (2) Stage 3b chronic kidney disease: Code(s): N18.32 - Chronic kidney disease, stage 3b Status: Acute Assessment and Plan: * baseline creatinine runs around 1.1 - 1.4mg/dl * due to heart disease, chronic diuretics, hypertension, and age-related charge (3) Acute hyperkalemia: Code(s): E87.5 - Hyperkalemia Status: Acute Assessment and Plan: * due to CIERRA along with use of entresto and potassium supplements * s/p medical management in the ER * follow repeat K+ levels (4) Altered mental status: Code(s): R41.82 - Altered mental status, unspecified Status: Acute Assessment and Plan: * presumably due to CIERRA and acute infecttion/UTI * CT of head noted * follow mentation (5) Acute UTI: Code(s): N39.0 - Urinary tract infection, site not specified Status: Acute Assessment and Plan: * admission UA highly suggestive * culture with Citrobacter and Enterococcus * on antibiotics Noted discussion with family/POA yesterday regarding patient's status and quality of life and plans for informational meeting regarding palliative care to address goals of care. Will continue to follow. Subjective Date/time seen: 08/27/22 11:44 No apparent distress voiced at the time of my visit but getting any reliable information from the patient is difficult given her mentation; renal function slowly improving with current interventions; family considering hospice given patient's poor quality of life. Exam Narrative: General: chronically ill appearing elderly female in NAD Heart: normal S1 and S2; no rub Lungs: clear to auscultation Abdomen: soft, nontender, nondistended, positive bowel sounds Extremities: no cyanosis or clubbing; no edema Skin: warm and dry Objective Data Vital Signs Vital Signs: Vital Signs Temp Pulse Resp BP Pulse Ox O2 Del Method O2 Flow Rate 08/27/22 06:00 98.2 F 80 18 132/68 91 08/27/22 04:00 73 08/27/22 00:00 77 08/26/22 22:00 97.2 F L 71 18 133/65 94 08/26/22 20:00 74 22 H 94 Nasal Cannula 3 08/26/22 20:00 78 08/26/22 21:54 74 08/26/22 16:00 72 08/26/22 12:00 74 08/26/22 14:00 97.2 F L 71 22 H 121/70 94 Intake/Output Intake/Output: Intake & Output 08/24/22 08/25/22 08/26/22 08/27/22 23:59 23:59 23:59 23:59 Intake Total 50 1270 170 Output Total 250 450 Balance 50 1020 -280 Meds/Results Medications: Active Medications Generic Name Dose Route Start Last Admin Trade Name Freq PRN Reason Stop Dose Admin
--- NOTE | 2022-08-27 11:44 | PM.PNNEP ---
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 suspected UTI agree with trial of IVFs evaluation to date: renal ultrasound c/w CKD; no acute issues UA significant for infection urine electrolytes are prerenal urine eosinophils negative CPK okay follow I/Os follow repeat labs and UOP (2) Stage 3b chronic kidney disease: Code(s): N18.32 - Chronic kidney disease, stage 3b Status: Acute Assessment and Plan: baseline creatinine runs around 1.1 - 1.4mg/dl due to heart disease, chronic diuretics, hypertension, and age-related charge (3) Acute hyperkalemia: Code(s): E87.5 - Hyperkalemia Status: Acute Assessment and Plan: due to CIERRA along with use of entresto and potassium supplements s/p medical management in the ER follow repeat K+ levels (4) Altered mental status: Code(s): R41.82 - Altered mental status, unspecified Status: Acute Assessment and Plan: presumably due to CIERRA and acute infecttion/UTI CT of head noted follow mentation (5) Acute UTI: Code(s): N39.0 - Urinary tract infection, site not specified Status: Acute Assessment and Plan: admission UA highly suggestive culture with Citrobacter and Enterococcus on antibiotics Noted discussion with family/POA yesterday regarding patient's status and quality of life and plans for informational meeting regarding palliative care to address goals of care. Will continue to follow. Subjective Date/time seen: 08/27/22 11:44 No apparent distress voiced at the time of my visit but getting any reliable information from the patient is difficult given her mentation; renal function slowly improving with current interventions; family considering hospice given patient's poor quality of life. Exam Narrative: General: chronically ill appearing elderly female in NAD Heart: normal S1 and S2; no rub Lungs: clear to auscultation Abdomen: soft, nontender, nondistended, positive bowel sounds Extremities: no cyanosis or clubbing; no edema Skin: warm and dry Objective Data Vital Signs Vital Signs: Vital Signs Temp Pulse Resp BP Pulse Ox O2 Del Method O2 Flow Rate 08/27/22 06:00 98.2 F 80 18 132/68 91 08/27/22 04:00 73 08/27/22 00:00 77 08/26/22 22:00 97.2 F L 71 18 133/65 94 08/26/22 20:00 74 22 H 94 Nasal Cannula 3 08/26/22 20:00 78 08/26/22 21:54 74 08/26/22 16:00 72 08/26/22 12:00 74 08/26/22 14:00 97.2 F L 71 22 H 121/70 94 Intake/Output Intake/Output: Intake & Output 08/24/22 08/25/22 08/26/22 08/27/22 23:59 23:59 23:59 23:59 Intake Total 50 1270 170 Output Total 250 450 Balance 50 1020 -280 Meds/Results Medications: Active Medications Generic Name Dose Route Start Last Admin Trade Name Freq PRN Reason Stop Dose Admin Alprazolam 0.5 mg 08/26/22 14:57 Alprazolam (*Crx) 0.5 Mg Tablet PO TID PRN anxiety Carvedilol 6.25 mg 08/26/22 21:00 08/27/22 08:55 Carvedilol 6.25 Mg Tablet PO 6.25 mg Q12HR BG Administration Cyanocobalamin 1,000 mcg 08/27/22 09:00 08/27/22 08:55 Cyanocobalamin 1,000 Mcg Tablet PO 1,000 mcg QAM BG Administration Dextrose 12.5 gm 08/25/22 20:21 Dextrose 50% 25 Gm/50 Ml Syringe IV PUSH PRN PRN Hypoglycemia Protocol Escitalopram Oxalate 10 mg 08/27/22 09:00 08/27/22 08:55 Escitalopram Oxalate 10 Mg Tablet PO 10 mg DAILY BG Administration Ferrous Sulfate 324 mg 08/26/22 17:00 08/27/22 08:55 Ferrous Sulfate 324 Mg Tablet PO 324 mg BIDWM BG Administration Glucagon 1 mg 08/25/22 20:21 Glucagon For Inj 1 Mg Vial I
[2022-08-27] MEDS: SODIUM CHLORIDE 0.45% 1,000 ML 75 ML IV CONT (13:28)
--- NOTE | 2022-08-27 16:40 | PM.IMPN ---
Progress Note: A&P Assessment and Plan (1) Acute metabolic encephalopathy: Code(s): G93.41 - Metabolic encephalopathy Status: Acute Assessment and Plan: Due to a combination of acute on chronic kidney injury and acute UTI. The patient had normal B12 and folate levels in June. TSH high in June, recheck. per son, patient is at her baseline at this time (2) Acute renal failure superimposed on stage 3 chronic kidney disease: Code(s): N17.9 - Acute kidney failure, unspecified; N18.30 - Chronic kidney disease, stage 3 unspecified Status: Acute Assessment and Plan: Due to combination of dehydration, patient's home diuretic use, decreased oral intake and continued use of nephrotoxic agents in her dehydrated state and complicated by her urinary tract infection. Creatinine 3.1 on presentation. Received bicarb drip on admission with improvement in renal function and acidosis. Creatinine remains elevated at 2.0. Transition to normal saline at 75 mL/hour. Appreciate Nephrology recommendations. Continue with Begum catheter to monitor urine output given incontinence. Hold nephrotoxins and diuretics (3) Acute hyperkalemia: Code(s): E87.5 - Hyperkalemia Status: Acute Assessment and Plan: The patient received appropriate acute treatment with insulin, glucose, bicarb, and calcium in the ER. The patient was unable to intake the lokelma. Did not have any peaked T-waves. potassium improved to 4.1 today. Continue with IV fluids (4) Hypothyroidism: Qualifiers: Hypothyroidism type: acquired Qualified Code(s): E03.9 - Hypothyroidism, unspecified Code(s): E03.9 - Hypothyroidism, unspecified Status: Acute Assessment and Plan: TSH elevated in June. Recheck most recent TSH. Continue levothyroxine (5) Acute UTI: Code(s): N39.0 - Urinary tract infection, site not specified Status: Acute Assessment and Plan: Patient has altered mental status and grossly abnormal UA. Urine culture with growth of Citrobacter youngae and Enterococcus. Continue IV Rocephin for treatment of Citrobacter. Add p.o. amoxicillin for treatment of Enterococcus. Discussed case with ID PharmD. Consider broadening antibiotics based on susceptibility report. Blood cultures pending, negative to date. Subjective Date/time seen: 08/27/22 16:40 Interval history: date of service: 08/26/2022 Fern David Grier is being seen in follow-up for CIERRA. The patient is a poor historian and not able to provide any reliable history. She is oriented to self only. Today she states that she has to go home and needs to get out of the hospital. Not able to provide any additional information offers no complaints. Family considering hospice care. Review of Systems Review of Systems: All systems reviewed & are unremarkable except as noted in HPI and below Exam Narrative: General: Thin, chronically ill-appearing 87-year-old female, supine in bed, comfortable, NARD Neuro: Awake, alert and oriented x1, no focal neuro deficits noted, confused HEENMT: normocephalic, atraumatic, EOMI, sclerae anicteric Respiratory: clear to auscultation bilaterally, nonlabored breathing Cardio: regular rate, regular rhythm with S1-S2 Abdomen: nondistended, normoactive bowel sounds, soft, nontender to palpation Extremities: no edema, erythema, or tenderness to palpation Skin: no rashes or lesions, warm and dry Psych: flat affect, judgment and insight poor Objective Data Vital Signs Vital Signs: Vital Signs - 24 hr 08/26/22 21:54 08/26/22 20:00 08/26/22 20:00 Temperature Pulse Rate 74 78 74 Respiratory Rate 22 H Blood Pressure Pulse Oximetry 94 Oxygen Delivery Nasal Cannula Oxygen Flow Rate 3 08/26/22 22:00 08/27/22 00:00 08/27/22 04:00 Temperature 97.2 F L Pulse Rate 71 77 73 Respiratory Rate 18 Blood Pressure 133/65 Pulse Oximetry 94
[2022-08-27] MEDS: AMOXICILLIN 500 MG CAPSULE PO ×2 (17:23→22:00)
[2022-08-27] MEDS: SODIUM CHLORIDE 0.9% IV 1,000 ML 75 ML IV CONT (17:27)
[2022-08-28 05:18] LABS: Hematocrit 30.9 % (37.0-47.0); Hemoglobin 8.9 g/dL (12.0-15.0); Immature Platelet Fraction Pct 8.5 % (0.9-11.2); Mean Corpuscular HGB Conc 28.8 g/dl (32-36); Mean Corpuscular Hemoglobin 36.5 pg (26-34); Mean Corpuscular Volume 126.6 fl (80-100); Mean Platelet Volume 11.5 fl (7.4-10.4); Platelet Count Result 102 k/mm3 (150-375); Red Blood Count 2.44 M/mm3 (4.2-5.4); White Blood Count 6.5 K/mm3 (4.5-10.0)
[2022-08-28 05:29] LABS: Anion Gap 4 mmol/L (8-16); Blood Urea Nitrogen 44 mg/dL (7-17); Calcium 7.3 mg/dL (8.4-10.2); Carbon Dioxide 24 mmol/L (22-30); Chloride 115 mmol/L (98-107); Estimated CRCL calculation 21 ml/min; Estimated Glomerular Filt Rate 33; Glucose 98 mg/dL (65-110); Potassium 4.3 mmol/L (3.4-5.0); Sodium 143 mmol/L (137-145)
[2022-08-28 06:08] VITALS: BP 132/92; PULSE 90; RESP 18; TEMP 36.3; O2SAT 97
[2022-08-28] MEDS: LEVOTHYROXINE SODIUM 125 MCG TABLET PO (06:23)
[2022-08-28] MEDS: AMOXICILLIN 500 MG CAPSULE PO ×3 (06:23→21:12)
[2022-08-28 08:02] VITALS: PULSE 86; O2SAT 99
[2022-08-28] MEDS: FERROUS SULFATE 324 MG TABLET PO ×2 (08:10→16:48)
[2022-08-28] MEDS: CYANOCOBALAMIN 1,000 MCG TABLET 1000 MCG PO (08:10)
[2022-08-28] MEDS: carvediloL 6.25 MG TABLET PO ×2 (08:10→21:11)
[2022-08-28] MEDS: ESCITALOPRAM OXALATE 10 MG TABLET PO (08:10)
--- NOTE | 2022-08-28 09:37 | P.PNNP_ITS ---
Progress Note: A&P Assessment and Plan (1) CIERRA (acute kidney injury): Code(s): N17.9 - Acute kidney failure, unspecified Status: Acute Assessment and Plan: * improvement noted * multifactorial: * pre-renal factors * diuretic use QUILL WINDER * entresto use QUILL WINDER * suspected UTI * responding to IVFs * change IVF to KVO given history of CHF * evaluation to date: * renal ultrasound c/w CKD; no acute issues * UA significant for infection * urine electrolytes are prerenal * urine eosinophils negative * CPK okay * follow I/Os * follow repeat labs and UOP (2) Stage 3b chronic kidney disease: Code(s): N18.32 - Chronic kidney disease, stage 3b Status: Acute Assessment and Plan: * baseline creatinine runs around 1.1 - 1.4mg/dl * due to heart disease, chronic diuretics, hypertension, and age-related charge (3) Acute hyperkalemia: Code(s): E87.5 - Hyperkalemia Status: Acute Assessment and Plan: * due to CIERRA along with use of entresto and potassium supplements * s/p medical management in the ER * follow repeat K+ levels (4) Altered mental status: Code(s): R41.82 - Altered mental status, unspecified Status: Acute Assessment and Plan: * seems a bit better today * presumably due to CIERRA and acute infecttion/UTI * CT of head noted * follow mentation (5) Acute UTI: Code(s): N39.0 - Urinary tract infection, site not specified Status: Acute Assessment and Plan: * admission UA highly suggestive * culture with Citrobacter and Enterococcus * on antibiotics Will continue to follow. Subjective Date/time seen: 08/28/22 09:37 More awake and talkative with me this morning at the time of my visit; she states she feels pretty good and denies any acute complaints or concerns; no issues/events overnight or earlier this AM. Exam Narrative: General: chronically ill appearing elderly female in NAD Heart: normal S1 and S2; no rub Lungs: clear to auscultation Abdomen: soft, nontender, nondistended, positive bowel sounds Extremities: no cyanosis or clubbing; no edema Skin: warm and intact Objective Data Vital Signs Vital Signs: Vital Signs Temp Pulse Resp BP Pulse Ox O2 Del Method O2 Flow Rate 08/28/22 08:02 86 99 Nasal Cannula 3 04/04/23 06:08 97.4 F L 90 18 132/92 H 97 08/27/22 20:00 94 Nasal Cannula 2 08/27/22 22:00 97.5 F L 92 20 111/83 96 08/27/22 20:20 76 08/27/22 16:00 90 08/27/22 12:00 99 08/27/22 14:00 97.5 F L 88 18 123/75 97 Intake/Output Intake/Output: Intake & Output 08/25/22 08/26/22 08/27/22 08/28/22 23:59 23:59 23:59 23:59 Intake Total 50 1270 1490 Output Total 250 450 200 Balance 50 1020 1040 -200 Meds/Results Medications: Active Medications Generic Name Dose Route Start Last Admin Trade Name Freq PRN Reason Stop Dose Admin Alprazolam 0.5 mg 08/26/22 14:57 Alprazolam (*Crx) 0.5 Mg Tablet PO TID PRN anxiety Amoxicillin 500 mg 08/27/22 16:00 08/28/22 06:23 Amoxicillin 500 Mg Capsule PO
--- NOTE | 2022-08-28 09:37 | PM.PNNEP ---
Progress Note: A&P Assessment and Plan (1) CIERRA (acute kidney injury): Code(s): N17.9 - Acute kidney failure, unspecified Status: Acute Assessment and Plan: improvement noted multifactorial: pre-renal factors diuretic use [employer] entresto use [employer] suspected UTI responding to IVFs change IVF to KVO given history of CHF evaluation to date: renal ultrasound c/w CKD; no acute issues UA significant for infection urine electrolytes are prerenal urine eosinophils negative CPK okay follow I/Os follow repeat labs and UOP (2) Stage 3b chronic kidney disease: Code(s): N18.32 - Chronic kidney disease, stage 3b Status: Acute Assessment and Plan: baseline creatinine runs around 1.1 - 1.4mg/dl due to heart disease, chronic diuretics, hypertension, and age-related charge (3) Acute hyperkalemia: Code(s): E87.5 - Hyperkalemia Status: Acute Assessment and Plan: due to CIERRA along with use of entresto and potassium supplements s/p medical management in the ER follow repeat K+ levels (4) Altered mental status: Code(s): R41.82 - Altered mental status, unspecified Status: Acute Assessment and Plan: seems a bit better today presumably due to CIERRA and acute infecttion/UTI CT of head noted follow mentation (5) Acute UTI: Code(s): N39.0 - Urinary tract infection, site not specified Status: Acute Assessment and Plan: admission UA highly suggestive culture with Citrobacter and Enterococcus on antibiotics Will continue to follow. Subjective Date/time seen: 08/28/22 09:37 More awake and talkative with me this morning at the time of my visit; she states she feels pretty good and denies any acute complaints or concerns; no issues/events overnight or earlier this AM. Exam Narrative: General: chronically ill appearing elderly female in NAD Heart: normal S1 and S2; no rub Lungs: clear to auscultation Abdomen: soft, nontender, nondistended, positive bowel sounds Extremities: no cyanosis or clubbing; no edema Skin: warm and intact Objective Data Vital Signs Vital Signs: Vital Signs Temp Pulse Resp BP Pulse Ox O2 Del Method O2 Flow Rate 08/28/22 08:02 86 99 Nasal Cannula 3 08/28/22 06:08 97.4 F L 90 18 132/92 H 97 08/27/22 20:00 94 Nasal Cannula 2 08/27/22 22:00 97.5 F L 92 20 111/83 96 08/27/22 20:20 76 08/27/22 16:00 90 08/27/22 12:00 99 08/27/22 14:00 97.5 F L 88 18 123/75 97 Intake/Output Intake/Output: Intake & Output 08/25/22 08/26/22 08/27/22 08/28/22 23:59 23:59 23:59 23:59 Intake Total 50 1270 1490 Output Total 250 450 200 Balance 50 1020 1040 -200 Meds/Results Medications: Active Medications Generic Name Dose Route Start Last Admin Trade Name Freq PRN Reason Stop Dose Admin Alprazolam 0.5 mg 08/26/22 14:57 Alprazolam (*Crx) 0.5 Mg Tablet PO TID PRN anxiety Amoxicillin 500 mg 08/27/22 16:00 08/28/22 06:23 Amoxicillin 500 Mg Capsule PO 500 mg Q8HR BG Administration Carvedilol 6.25 mg 08/26/22 21:00 08/28/22 08:10 Carvedilol 6.25 Mg Tablet PO 6.25 mg Q12HR BG Administration Cyanocobalamin 1,000 mcg 08/27/22 09:00 08/28/22 08:10 Cyanocobalamin 1,000 Mcg Tablet PO 1,000 mcg QAM BG Administration Dextrose 12.5 gm 08/25/22 20:21 Dextrose 50% 25 Gm/50 Ml Syringe IV PUSH PRN PRN Hypoglycemia Protocol Escitalopram Oxalate 10 mg 08/27/22 09:00 08/28/22 08:10 Escitalopram Oxalate 10 Mg Tablet PO 10 mg DAILY BG Administration Ferrous Sulfate 324 mg 08/26/22 17:00 08/28/22 08:10 Ferrous Sulfate 324 Mg Tablet PO 324 mg BIDWM BG Administration Glucagon 1 mg 08/25/22 20:21 Glucagon For Inj 1 Mg Vial IM PRN PRN Hypoglycemia Protocol Glucose 15 gm 08/25/22 20:21 Glucose O
[2022-08-28 12:22] LABS: EDCOVIDSCREEN Positive (Negative)
[2022-08-28 14:00] VITALS: BP 131/54; PULSE 98; RESP 16; TEMP 36.8; O2SAT 97
[2022-08-28 14:07] LABS: SARS-CoV-2 RNA PCR Negative
--- NOTE | 2022-08-28 14:36 | PM.DS ---
DS: Admitting Diagnosis Discharge Date 08/28/2022 Admitting Diagnosis 08/28/2022 DS: Discharge Diagnosis Discharge Diagnosis (1) Acute metabolic encephalopathy: Code(s): G93.41 - Metabolic encephalopathy Status: Acute Assessment and Plan: Due to a combination of acute on chronic kidney injury and acute UTI. The patient had normal B12 and folate levels in June. TSH within. Mental status returned to baseline. (2) Acute renal failure superimposed on stage 3 chronic kidney disease: Code(s): N17.9 - Acute kidney failure, unspecified; N18.30 - Chronic kidney disease, stage 3 unspecified Status: Acute Assessment and Plan: Due to combination of dehydration, patient's home diuretic use, decreased oral intake and continued use of nephrotoxic agents in her dehydrated state and complicated by her urinary tract infection. Creatinine 3.1 on presentation. Received bicarb drip on admission with improvement in renal function and acidosis. creatinine levels improved. returned to near baseline at time of discharge. Patient evaluated by Nephrology. Planning for hospice care on discharge, therefore no need for further monitoring of renal function (3) Acute hyperkalemia: Code(s): E87.5 - Hyperkalemia Status: Acute Assessment and Plan: The patient received appropriate acute treatment with insulin, glucose, bicarb, and calcium on presentation. Did not have any peaked T-waves. Potassium Levels normalized with supplementation. Patient's home potassium supplement was placed on hold in conjunction with home furosemide. (4) Hypothyroidism: Qualifiers: Hypothyroidism type: acquired Qualified Code(s): E03.9 - Hypothyroidism, unspecified Code(s): E03.9 - Hypothyroidism, unspecified Status: Acute Assessment and Plan: TSH within normal limits. Continue levothyroxine (5) Acute UTI: Code(s): N39.0 - Urinary tract infection, site not specified Status: Acute Assessment and Plan: Patient Presented with altered mental status and grossly abnormal UA. Urine culture with growth of Citrobacter youngae and Enterococcus. susceptibility reports pending at time of discharge. Patient received IV ceftriaxone during admission and will continue p.o. cefdinir as an outpatient for treatment of Citrobacter. Started on p.o. amoxicillin for treatment of Enterococcus which she will continue to complete a 7 day course. Will follow culture results and contact facility if any adjustments are required to antibiotics. Blood cultures pending, negative to date. Final cultures will be monitored. DS: Summary Hospital Course Hospital Course: Date of admission: 08/25/2022 date of discharge: 08/28/2022 Fern Varghese is an 87-year-old female with a history of hypothyroidism, CKD, CHF, hypertension, and depression who presented to the emergency department from her nursing facility on 08/25/2022 due to decreased responsiveness. On presentation to the ED, her vital signs were stable, she was afebrile, BMP abnormal was sodium 146, potassium 6.1, chloride 118, CO2 16, BUN 54, creatinine 3.1, UA grossly abnormal, CXR with pulmonary opacities and head CT with no acute findings. She was admitted to the hospitalist service for further evaluation and management. Please see above for further details. Patient was treated for UTI and had symptomatic improvement in her mental status. Patient has had overall cognitive and physical decline and has stated to her son that she is ready to . discussed hospice at length with face and son/ POA. He is out of town at time of face since hospitalization a plans to arrange hospice care at patient's nursing facility when he returns later this week. Patient was back to baseline and was discharged in hemodynamically stable condition on 08/28/2022. Time Spent with Patient Time attestation: Total time spent providing an
[2022-08-28 20:00] VITALS: O2SAT 97
[2022-08-28 21:11] VITALS: PULSE 98
[2022-08-28 21:14] VITALS: BP 156/101; PULSE 107; RESP 16; TEMP 37.1; O2SAT 98
[2022-09-01 18:51] LABS: Chloride Rand Ur 35 mmol/L (32-290); Chloride/Creatinine Rand Ur 26 (38-318); Creatinine Random Urine 136 mg/dL (20-275)
== END 2022-08-28 21:50 | DRG 682 ==
LOC: ANHED 19:51 → ANH2MED 21:38
PROVIDERS: Internal Medicine Nephrology; Admitting Provider Internal Medicine; Emergency Provider Emergency Medicine; PCP Internal Medicine; Visit Provider Physician Assistant
DX: N17.9 Acute kidney failure, unspecified (principal); G93.41 Metabolic encephalopathy; N39.0 Urinary tract infection, site not specified; I13.0 Hypertensive heart and chronic kidney disease with heart failure and stage 1 through stage 4 chronic kidney disease, or unspecified chronic kidney disease; I50.42 Chronic combined systolic (congestive) and diastolic (congestive) heart failure; E87.1 Hypo-osmolality and hyponatremia; N18.32 Chronic kidney disease, stage 3b; B95.2 Enterococcus as the cause of diseases classified elsewhere; B96.89 Other specified bacterial agents as the cause of diseases classified elsewhere; E87.5 Hyperkalemia; E86.0 Dehydration; E03.9 Hypothyroidism, unspecified; D64.9 Anemia, unspecified; K57.90 Diverticulosis of intestine, part unspecified, without perforation or abscess without bleeding; I48.91 Unspecified atrial fibrillation; D69.6 Thrombocytopenia, unspecified; F41.9 Anxiety disorder, unspecified; Z86.16 Personal history of COVID-19; Z90.49 Acquired absence of other specified parts of digestive tract
CPT/HCPCS: 36415; 70450; 71045; 76775; 80048; 80053; 81001; 82436; 82550; 82570; 82948; 83605; 83735; 84100; 84156; 84295; 84300; 84443; 84540; 85025; 85027; 85055; 85610; 85730; 85999; 87040; 87077; 87086; 87147; 87181; 87186; 87426; 87637; 93005; 96365; 96366; 96367; 96375; 99285; A9270; C9803; G0378; J0612; J0696; J1815; J7030; J7070; U0003; U0005